=== PATIENT | male | born 1960 | race Caucasian/White ===

== ENCOUNTER 2018-11-23 06:55 | Day surgery (SDC) | payer OTHER, SELFPAY ==
[2018-11-23 07:13] VITALS: BP 133/92; PULSE 100; RESP 18; TEMP 36.7; O2SAT 97; BMI 27.5
--- NOTE | 2018-11-23 08:00 | COLBX_PTH ---
PATIENT: KYLE VAZQUEZ LOC: EN U#:[id number] AGE/SX: 57/M ROOM: RE11/23/[address]: Dr. Taiwo Casas MD : 1960 BED: DIS: 11/23/2018 SPEC #: [id number] RECD: 11/23/18 10:56 STATUS: JHONNY JUSTIN #: [id number] GEOVANNA: 11/23/18 08:[address]: Taiwo Casas DEPT: SURGICAL PATHOLOGY RECD BY: Lynne Amezcua ENTERED: 11/23/18 11:51 SP TYPE: COLON BX OTHR DR: Dr. Doug Castaneda MD Tissues: Descending colon Procedures: Surgery Specimen Level IV HEADER OPERATION: Colonoscopy - open access (MAC) PRE-OP DIAGNOSIS: Screening TISSUE SUBMITTED: Biopsy of descending colon polyp MICROSCOPIC DIAGNOSIS Descending colon polyp, biopsy: Tubular adenoma. SJ:colt 11/24/18 MICROSCOPIC DESCRIPTION Slides are reviewed. GROSS DESCRIPTION Received in fixative is one container labeled with the patient's name and designated descending colon polyp. The specimen consists of multiple irregular fragments of light schwarz soft tissue that in aggregate measure 0.5 x 0.3 x 0.1 cm. The specimen is totally submitted in one cassette. / SJ:colt 11/23/18 TC:1 CPT: 74510
--- NOTE | 2018-11-23 08:29 | H&P.OPEN ---
History of Present Illness Date of Admission: 11/23/18 The patient is a 57 year old M who presents for screening colonoscopy. Past Medical/Surgical History - Planned Operation Planned Operative Procedure/s: COLONOSCOPY Date of Operative Procedure: 11/23/18 Permit Signed: Yes S.O.S: No Is This Patient Having a Total Joint: No - Previous Hospitalizations/Surgeries HX Hospitalizations: No HX of Surgeries: CYST REMOVED INSIDE SPINAL CORD Any Problems With Anesthesia: No You/Your Family Experience Fever (Hyperthermia) With Anes: No Cholinesterase deficiency: No - Cardiovascular Hx Chest Pain within Last 2 months: No Hx of Irregular Heartbeat and/or Afib: No Hx Heart Attack: No Hx Congestive Heart Failure: No Hx Rheumatic Fever: No Hx Hypertension: No Hx Internal Defibrillator: No Hx Pacemaker: No Hx Cardiac Catheterization: No Hx Cardiac Surgery/Stents/Etc.: No Hx Stress Test: No HX Edema: No Hx Pain in Legs when Walking/Leg Cramps: No - Respiratory Chronic Cough: No HX of Shortness of Breath: No Hoarseness: No Hx Chronic Obstructive Pulmonary Disease (COPD): No Hx Asthma: No Hx Emphysema: No Hx Sleep Apnea: No Hx Oxygen Use at Home: No Hx Respiratory Tract Infection/Cold (presently): No Do You Snore Loudly (louder than talking or can be heard): Yes Do You Often Feel Tired/ Fatigued/ Sleepy Dring Daytime?: No Has Anyone Observed You Stop Breathing During Sleep?: No Result (for STOP score): Negative Hx Smoking: No Smoking Status: Never smoker - Gastrointestinal Hx Gastroesophageal Reflux: No Hx Gastrointestinal Disorders: No Hx Gastrointestinal Bleed: No Hx Ulcer: No Hx Hiatal Hernia: No Difficulty Chewing/Swallowing: No Recent Onset of Swallowing Problems: No Special diet followed at home: No Hx Unplanned Weight Loss of 20#: No HX Unplanned Weight Gain of 20#: No - Neurological Hx Seizures: No HX Syncope/Blackout Spells/Unconsciousness: No Hx CVA/Stroke: No Hx Transient Ischemic Attacks (TIA): No Hx Multiple Sclerosis: No Hx Parkinson's Disease: No Hx Head/Neck Injury: No Hx Headaches: No Hx Back Injury/Pain: Yes Recent Onset of Speech Difficulty: No Restless Legs: Yes Does patient have nerve stimulator: No - Blood Disorder Hx Leukemia: No Bleeding Tendencies: No Hx Deep Vein Thrombosis: No Hx High Cholesterol: No Blood Transmitted Disease: No Hx Hepatitis: No Hx Cirrhosis: No Hx Anemia: No Hx Blood Disorders: No - Genitourinary Hx Renal Disease: No - Musculoskeletal Hx Arthritis: No Hx Rheumatoid Arthritis: No Hx Gout: No Recent Onset of an Orthopedic Problem: Yes - R KNEE - Endocrine Hx Diabetes: No Thyroid Disease: No Hx Steroid Therapy: No - Psycho/Social Hx Substance Use: No Hx Alcohol Use: No Hx Anxiety: No Hx Depression: No Mental Illness: No Hx Dementia: No - Miscellaneous Hx Cancer: No Recent Exposure to Contagious Disease: No Active MRSA: No Hx of C-Diff: No Any Loose Teeth: No Allergies amoxicillin Allergy (Verified 11/18/18 12:10) Rash - Discharge Is Pt Admitted From a [facility], or a Residential: No Who Could Help: After D/C, Where Do you Plan to Go: Return Home - Physical Exam General: Alert, Oriented x3 HEENT: Atraumatic, PERRLA, EOMI, Normocephalic Oral: Moist Mucosa Neck: Supple, No JVD Lungs: Clear to auscultation Cardiovascular: Regular rate, Regular Rhythm, No murmurs Abdomen: Bowel Sounds Present, Soft, Non Tender, Non-Distended Extremities: No clubbing, No cyanosis, No edema Skin: No rashes, No breakdown Musculoskeletal: No Tenderness to Palpation of Joints or Extremities Lymphatic: No Cervical, Supraclavicular, or Inguinal Adenopathy Neurological: Cranial nerves II-XII grossly intact Psych/Mental Status: Normal Affect, Appropriate Vital Signs Temp Pulse Resp BP Pulse Ox 98.0 F 100 18 133/92 H 97 11/23/18 07:13 11/23/18 07:13 11/23/18 07:13 11/23/18 07:13 11/23/18 07:13 Oxygen Delivery Method Room Air Weight: 181 lb 3.52 oz Body Mass Index (BMI) 27.5 Assessment/Plan Plan is to perform a colonoscopy on the patient. Possible polypectomy Surgery Risks - Colonoscopy Risks Include but are not Limited To: Risks include but are not limited to: Bleeding, perforation requiring further surgery, inability to complete colonoscopy requiring barium enema.
[2018-11-23 08:55] VITALS: BP 133/92; BP 138/94; PULSE 94; RESP 16; TEMP 36.8; O2SAT 97
--- NOTE | 2018-11-23 08:57 | OP.ENDO_ITS ---
11/23/2018 Doug Castaneda Re : Colonoscopy procedure for Chad Castaneda This procedure was performed on Friday, November 23, 2018. My impressions and recommendations are as follows: Impressions : - One 4 mm polyp in the descending colon, removed with a jumbo cold forceps. Resected and retrieved. - The entire examined colon is normal. Recommendations : - Discharge patient to home. - Resume previous diet. - Continue present medications. - Await pathology results. - Repeat colonoscopy in 3 years for surveillance. - Return to my office in 1 week. My findings are described in the full procedure note, which is enclosed. If I can be of further assistance, please feel free to contact me at Doctor phone number(s): , Fax: [phone], Work: . Sincerely, MD Taiwo Acosta MD 11/23/2018 8:56:49 AM This report has been signed electronically.
[2018-11-23 09:00] VITALS: BP 128/88; BP 133/92; PULSE 92; RESP 16; O2SAT 96
[2018-11-23 09:05] VITALS: BP 124/84; BP 133/92; PULSE 93; RESP 16; O2SAT 96
[2018-11-23 09:10] VITALS: BP 123/87; BP 133/92; PULSE 90; RESP 18; TEMP 36.5; O2SAT 96
[2018-11-23 09:15] VITALS: BP 133/92
== END 2018-11-23 09:50 | disposition home or self-care (01) ==
LOC: EN 06:57 → AC 06:58
PROVIDERS: Family Provider Family Medicine; PCP Family Medicine; Referring Provider Family Medicine; Visit Provider Surgery
PROC: 0DJD8ZZ Inspection of Lower Intestinal Tract, Via Natural or Artificial Opening Endoscopic (ICD-10-PCS; CPT 45378; principal; 2018-11-23 07:55)
DX: Z12.11 Encounter for screening for malignant neoplasm of colon (principal); D12.4 Benign neoplasm of descending colon; G25.81 Restless legs syndrome
CPT/HCPCS: 45380; 88305; J7120; J1610

== ENCOUNTER 2022-03-11 09:17 | Emergency (ER) | payer OTHER, SELFPAY ==
[2022-03-11 09:18] VITALS: BP 137/86; PULSE 91; RESP 16; TEMP 36.3; O2SAT 98; BMI 27.6
--- NOTE | 2022-03-11 09:42 | EDS_ITS ---
HPI History of Present Illness Chief Complaint: Back Informant: patient Onset/Context/Timing Onset: Days (3) Context: Gradual Onset Chronic pain exacerbated by: back exercises Timing: Continuous Quality: Aching Location: Buttock and Left Leg Current Severity: Moderate Maximum Severity: Moderate Worsened by: improves with Ambulation (and standing for long periods) Relieved by: Sitting Associated Symptoms Associated Symptoms: Tingling and Radiation to Right Leg; Negative for Fever, Abdominal Pain, Dysuria, Unable to Ambulate, Unable to Transfer, Urinary Retention, Urinary Incontinence, Constipation or Fecal Incontinence Narrative Narrative: Patient has a chronic history of back issues with sciatica, he had an MRI 2 years ago that showed an intervertebral disc issue, he saw Dr. Maurer for it. He did an injection, the patient did not like having that injection and he has not been back there since then, however he went to a chiropractor a couple days ago who did not adjust his back but had him do some strengthening exercises, these included lateral planks, [id number] motions, and other muscle strengthening with regards to the low back and pelvic girdle. He states since then gradually, he has had tingling down his legs mostly the right 1. No bowel or bladder dysfunction. It is more uncomfortable if he walks 20 or 30 feet, better if he sits and rests. He states the sensation is like he is losing blood flow to both of his legs. He denies any abdominal pain, major injuries or falls recently. Prior similar symptoms: Yes and With Prior Back Pain (but worse now) [facility] Medical History (Updated 03/11/22 @ 09:[address] Gideon Willett MD) Radiculopathy due to disorder of intervertebral disc of lumbar spine Synovial cyst of lumbar spine Home Medications garlic 300 mg capsule 300 mg PO DAILY 07/10/20 [History Last Taken Unknown] ibuprofen 200 mg capsule 200 mg PO Q6H PRN 07/10/20 [History Last Taken Unknown] magnesium oxide 500 mg capsule 500 mg PO DAILY 07/10/20 [History Last Taken Unknown] multivitamin with iron (Daily Multiple Vitamins with Iron tablet) 1 tab PO DAILY 07/10/20 [History Last Taken Unknown] prednisone 10 mg tablet 10 mg PO UD #30 tabs 03/11/22 [Rx Last Taken Unknown] Allergy/AdvReac Type Severity Reaction Status Date / Time amoxicillin Allergy Rash Verified 03/11/22 09:18 Family History (Updated 07/10/20 @ 10:02 by Shannen Yu) Mother Arthritis Surgical History History of tonsillectomy [place] teeth removed Social History household members: spouse and children housing: house Smoking Status: Never smoker alcohol intake: current alcohol intake frequency: holidays/special occasions only what type of physical activity do you participate in: walking frequency: daily do you feel safe at home: Yes ROS ROS ED Constitutional Constitutional ED: Denies chills or fever(s) Gastrointestinal Gastrointestinal: Denies abdominal pain, constipation, fecal incontinence, nausea or vomiting Genitourinary Genitourinary ED: Reports other Details: no urinary retention ; Denies abdominal discomfort or urinary incontinence Musculoskeletal Musculoskeletal: Reports as per HPI and back pain; Denies neck pain Integumentary Denies rash or wounds Neurologic Neurologic: Reports paresthesias; Denies headache(s) or weakness EXAM Physical Exam Const Vital Signs: 03/11/22 09:18 Temperature 97.3 F L Temperature Source Temporal Pulse Rate 91 Respiratory Rate 16 Blood Pressure 137/86 H Blood Pressure Mean 103 Pulse Ox 98 Oxygen Delivery Method Room Air Positive well nourished and well developed General Appearance ED: well developed and NAD HEENT Negative for trauma or tenderness Eyes PERRL and EOMs intact bilaterally Neck full ROM and supple GI normal to inspection, nondistended, normoactive bowel sounds, soft to palpation and non-tender Back/Spine normal to inspection General Back: Negative for CVA tenderness Lumbar Spine / Lower Back: ROM limited and straight leg raise positive right other (Fully extended while sitting, exacerbates tingling); Negative for lumbar spinal tenderness Extremity normal to inspection, full ROM and no pedal edema Neuro oriented x3 Neuro Narrative: Subjective decrease sensation in the right lower extremity stocking glove distribution. Brisk cap refill throughout all toes. Sensation is grossly intact. Sensorium / Orientation: alert Motor Exam: strength 5/5 throughout and clonus absent Deep Tendon Reflexes: Rt Patellar (L4): 1+, Lt Patellar (L4): 1+, Rt Ankle (S1): 2+ and Lt Ankle (S1): 2+ Deep Tendon Reflexes Back: Rt Patellar (L4): 1+, Lt Patellar (L4): 1+, Rt Ankle (S1): 2+ and Lt Ankle (S1): 2+ Plantar Reflex: Downgoing: bilateral Psych mental status grossly normal and thought process normal Skin no rashes or lesions noted and no wounds MDM MDM MDM Narrative Medical decision making narrative: This patient basically has a history of chronic radiculopathy, and it seems exacerbated by the therapy session that he had 2-3 days ago. He does not have any bowel or bladder dysfunction. He did not have any bony manipulation or spinal tenderness now, so I do not think he needs emergent imaging/radiography. My suggestion is a course of prednisone, which is what he was thinking might help. If this does not help and the symptoms do not improve I suggest following up with his validation specialist. He is in agreement with this plan. Discharge Plan Triage Chief Complaint: Back ED Provider: Gideon Willett Dx/Rx/DC Orders Clinical Impression: Radiculopathy due to disorder of intervertebral disc of lumbar spine Instructions: Understanding Lumbar Radiculopathy Prescriptions: New prednisone 10 mg tablet 10 mg PO UD Qty: 30 0RF Rx Instructions: Take 4 tablets daily for 3 days, then 3 daily for 3 days, then 2 daily for 3 days, then 1 a day for 3 days No Action ibuprofen 200 mg capsule 200 mg PO Q6H PRN multivitamin with iron [Daily Multiple Vitamins/Iron] Tablet 1 tab PO DAILY garlic 300 mg capsule 300 mg capsule 300 mg PO DAILY magnesium oxide 500 mg capsule 500 mg PO DAILY Primary Care Provider: Doug Castaneda Referrals: Tristin Maurer DO [Med Staff - Active Staff] - 1 Week if not improving Doug Castaneda MD [Primary Care Provider] - Activity Restrictions/Additional Instructions: Start prescription tomorrow 02/2010 Disposition Disposition: Home, Self Care
[2022-03-11] MEDS: predniSONE 20 MG Tablet 60 MG PO (09:48)
== END 2022-03-11 09:51 | disposition home or self-care (01) ==
LOC: ED 09:47
PROVIDERS: Emergency Provider Emergency Medicine; PCP Family Medicine; Visit Provider Emergency Medicine
DX: M51.16 Intervertebral disc disorders with radiculopathy, lumbar region (principal)
CPT/HCPCS: 99283

== ENCOUNTER → 2022-04-02 | Outpatient (CLI) | payer OTHER, SELFPAY ==
--- NOTE | 2022-04-02 16:53 | US_ITS ---
EXAM: US RETROPERITONEAL LIMITED, AORTA CLINICAL INDICATION: pulsatile abdominal mass with 4 weeks claudication and Fhx of AAA TECHNIQUE: Lafleur scale and color Doppler imaging was obtained of the abdominal aorta. This report was created using [employer] report generation technology. COMPARISON: None. FINDINGS: AORTA: The proximal aorta measures 2.5 cm, the mid aorta measures 1.6 cm and the distal aorta measures 1.7 cm. COMMON ILIAC ARTERIES: The right iliac artery measures 1.5 x 1.2 cm in the left iliac artery measures 1.3 x 1.2 cm. US/Aorta IMPRESSION: Normal caliber aorta. There is no evidence of aneurysm. Electronically Signed: Jayson Sousa MD at 18:31 EDT ,
[2022-04-02 17:38] LABS: Hemoglobin 14.2 g/dL (13.0-16.5); Mean Corp Hgb Conc 32.3 g/dL (32-36); Mean Corpuscular Hgb 29.6 pg (27.0-32.0); Mean Corpuscular Volume 91.9 fL (80-94); Mean Platelet Vol. 9.6 fl (6.2-12.0); Platelet Count 233 K/mm3 (150-450); RBC Distribution Width CV 13.2 % (11.6-14.6); Red Blood Count 4.79 M/mm3 (4.6-6.2); White Blood Count 6.4 K/mm3 (4.4-11.0)
[2022-04-02 18:23] LABS: AST(SGOT) 12 U/L (15-37); Alanine Aminotransfer ALT/SGPT 26 U/L (16-61); Albumin, Serum 3.9 g/dL (3.2-5.0); Alkaline Phosphatase 89 U/L (45-117); Anion Gap 5 (5-15); BUN 19 mg/dL (7-18); BUN/Creat Ratio 18.4 RATIO (10-20); CPK Total, Creatine Kinase 71 U/L (39-308); Calcium,Total 9.3 mg/dL (8.5-10.1); Chloride 105 mmol/L (98-107); Cholesterol 157 mg/dL (200); Creatinine, Serum 1.03 mg/dL (0.70-1.30); EST Glomerular Filtration Rate 78 mL/min (>60); Est Glom Filt Rate - Afr Amer 94 mL/min (>60); Ferritin 308 ng/mL (26-388); Glucose 93 mg/dL (74-106); High Density Lipoprotein 41 mg/dL; Potassium 3.9 mmol/L (3.5-5.1); Protein, Total 7.9 g/dL (6.4-8.2); Sodium Level 139 mmol/L (136-145); Triglycerides 84 mg/dL; Very Low Density Lipoprotein 17 mg/dL (5-40)
[2022-04-12 15:53] LABS: HLA B27 Negative (.)
== END | disposition home or self-care (01) ==
PROVIDERS: PCP Family Medicine; Visit Provider Family Medicine
DX: I70.90 Unspecified atherosclerosis (principal); I73.9 Peripheral vascular disease, unspecified; R68.3 Clubbing of fingers; M47.816 Spondylosis without myelopathy or radiculopathy, lumbar region
CPT/HCPCS: 36415; 76775; 80053; 80061; 81374; 82550; 82728; 85027

== ENCOUNTER → 2022-04-23 | Outpatient (CLI) | payer OTHER, SELFPAY ==
--- NOTE | 2022-04-23 09:07 | ART_ITS ---
Reason For Study: Claudication Procedure A bilateral lower extremity continuous wave Doppler with analog waveform analysis,segmental pressures,and ankle brachial indexes with exercise. Left Segmental Pressures Left brachial= 130mmHg. Left posterior tibial artery = 176mmHg. Left dorsalis pedis artery = 157mmHg. Left digit = 99 mmHg. The left dorsalis pedis waveforms are triphasic. The left posterior tibial artery waveforms are triphasic. Right Segmental Pressures Right brachial= 130mmHg. Right posterior tibial artery = 183mmHg. Right dorsalis pedis artery = 172mmHg. Right digit = 109 mmHg. The right dorsalis pedis waveforms are triphasic. The right posterior tibial artery waveforms are triphasic. Indices The right ankle brachial index by the dorsalis pedis is 1.32. The right ankle brachial index by the posterior tibial artery is 1.41. The right digital-brachial index is 0.84. The left ankle brachial index by the dorsalis pedis is 1.21. The left ankle brachial index by the posterior tibial artery is 1.35. The left digital-brachial index is 0.76. VL/Lower Ext Art Exam w/ Exercise Interpretation Summary Triphasic Doppler waveforms are noted at ankle level bilaterally. Pulse-volume recordings appear diminished at digital level bilaterally, but satisfactory at all other levels b ilaterally. The resting right ankle-brachial index is supra-normal. The resting left ankle-brac hial index is normal. Digital-brachial indices are normal bilaterally. Following a period of exercise , ankle pressures and ankle-brachial indices are maintained or augmented bilaterally, which is a norm al physiological response. There is evidence of arterial calcification at ankle level on the right. There is no evidence of significant arterial occlusive disease in the lower extremities bilaterally. Ordering Physician: Karsten Szymanski Referring Physician: KARSTEN SZYMANSKI MD Performed By: Demetria Thurman RVT
== END | disposition home or self-care (01) ==
PROVIDERS: PCP Family Medicine; Referring Provider Family Medicine; Visit Provider Family Medicine
DX: I70.90 Unspecified atherosclerosis (principal); I73.9 Peripheral vascular disease, unspecified; M79.604 Pain in right leg; M79.605 Pain in left leg
CPT/HCPCS: 93924

== ENCOUNTER 2022-05-20 12:14 | Outpatient (CLI) | payer OTHER, SELFPAY ==
--- NOTE | 2022-05-20 14:36 | NEURO ---
NCS and/or EMG Patient Report Ordering Doctor: Tristin Maurer DATE OF SERVICE: 05/20/22 Chad presents electrodiagnostic testing of the lower limbs. He reports difficulty walking due to leg pain. Electrodiagnostic findings: Peroneal motor nerve demonstrates normal distal latency, amplitude and conduction velocity bilaterally. Normal tibial motor response bilaterally. Sensory responses are within normal limits. Borderline prolonged H reflex bilaterally. Peroneal and tibial F waves are normal. On needle EMG, all muscles tested in the lower limbs showed no evidence of denervation with normal motor unit action potentials. Electrodiagnostic impression: This is a normal electrodiagnostic study of the lower limbs. There is no electrodiagnostic evidence for peripheral polyneuropathy or lumbosacral radiculopathy.
== END 2022-05-20 23:59 | disposition home or self-care (01) ==
LOC: PSN 12:14
PROVIDERS: PCP Family Medicine; Visit Provider Orthopaedic Surgery
DX: M54.50 Low back pain, unspecified (principal)
CPT/HCPCS: 95886; 95911

== ENCOUNTER → 2022-05-29 | Outpatient (CLI) | payer OTHER, SELFPAY ==
--- NOTE | 2022-05-29 06:36 | MRI_ITS ---
ACR Level 3 findings have been noted. An addendum which confirms receipt of the report will follow. STUDY: MRI LUMBAR SPINE WITHOUT CONTRAST REASON FOR EXAM: Male, 61 years old. lower back/leg pain TECHNIQUE: Standardized fat and water weighted pulse sequences were obtained in the sagittal and axial planes. COMPARISON: X-ray the lumbar spine. FINDINGS: Bulky retroperitoneal lymphadenopathy is present, which should be further evaluated or correlated with the patient''s known medical history and diagnosis. Normal lumbar lordosis. There is no substantial scoliosis. Normal conus medullaris that terminates at the T12 level. No marrow edema or acute fracture or compression deformity is present. There is an old displaced fracture of the L5 spinous process with nonunion, see image 08/15 series 5. Benign fatty hemangioma of the L3 vertebral body noted. T12-L1: Small Schmorl''s nodes on both sides of the disc space. Normal disc space height and morphology. Normal bilateral facet joints. Normal central canal and bilateral lateral recesses. Normal bilateral intervertebral neural foramina. L1-2: Diffuse disc desiccation with mild disc space narrowing but no significant bulging or herniation of the disc posteriorly. Small Schmorl''s node and mild anterior endplate spurring and mild MODIC endplate degenerative signal. Normal bilateral facet joints. Normal central canal and bilateral lateral recesses. Normal bilateral intervertebral neural foramina. L2-3: Diffuse disc desiccation and mild anterior endplate spurring. Small Schmorl''s node with surrounding MODIC reactive endplate signal. Normal disc height and morphology. Normal bilateral facet joints. Normal central canal and bilateral lateral recesses. Normal bilateral intervertebral neural foramina. L3-4: Diffuse disc desiccation with minimal disc space narrowing and annular bulging. Small posterior annular tear of the disc. Mild anterior endplate spurring. Mild to moderate bilateral facet joint hypertrophy. Mild fluid distention of the facet joints. Mild right foraminal stenosis. Normal left neural foramen. Normal central canal and bilateral lateral recesses. L4-5: Normal endplates. Diffuse disc desiccation with mild disc space narrowing and diffuse disc bulging. Small to moderate size anterior endplate osteophytes. Bilateral lateral recess stenosis with nerve root compression and mild to moderate central canal stenosis is present primarily due to significant facet joint hypertrophy. Moderate fluid distention of the bilateral facet joints. Mild to moderate bilateral foraminal stenosis with posterior nerve root impingement. L5-S1: Diffuse disc desiccation with moderate disc space narrowing and a diffuse disc bulge. Moderate size Schmorl''s node. Small anterior endplate spurs. Moderate bilateral facet joint hypertrophy contributes to mild central canal stenosis. Moderate bilateral foraminal stenosis, right greater than left with nerve root compression. Normal visualized sacral ala. Normal visualized paraspinous soft tissue structures. MRI/Spine Lumbar (Routine) IMPRESSION: 1. Bulky retroperitoneal lymphadenopathy is present, which should be further evaluated or correlated with the patient''s known medical history and diagnosis. 2. Multilevel degenerative changes, as described above. 3. Mild to moderate central canal stenosis at L4-L5 4. Multilevel foraminal stenosis with nerve root impingement/compression Electronically Signed: Bowen Rubin MD at 13:26 EST ,
== END | disposition home or self-care (01) ==
PROVIDERS: PCP Family Medicine; Referring Provider Orthopaedic Surgery; Visit Provider Orthopaedic Surgery
DX: M48.061 Spinal stenosis, lumbar region without neurogenic claudication (principal); D18.09 Hemangioma of other sites; R59.0 Localized enlarged lymph nodes; M51.36 Other intervertebral disc degeneration, lumbar region; M25.48 Effusion, other site
CPT/HCPCS: 72148

== ENCOUNTER 2022-06-05 16:09 | Emergency (ER) | payer OTHER, SELFPAY ==
[2022-06-05 16:11] VITALS: BP 177/102; PULSE 86; RESP 18; TEMP 36.2; O2SAT 98; BMI 28.8
--- NOTE | 2022-06-05 18:25 | EDS_ITS ---
HPI History of Present Illness Chief Complaint: Edema Narrative Narrative: 61-year-old male presenting for evaluation. He was sent by Dr. James to be started on Lovenox. Apparently the patient started having back pain a while ago. He was seen in the ER and followed up with Dr. Maurer. He had an MRI performed which indicated that the patient had some retroperitoneal lymphadenopathy. He was referred to oncology for this. Oncology ordered a CTA of the chest abdomen pelvis yesterday. The results were received today. Apparently the patient has some blood clot in the inferior vena cava. Patient himself states that he is actually back up and walking and feeling a little bit better. No loss of bladder or bowel control or saddle anesthesia. He does have some tingling in the bilateral legs. He denies any lower extremity edema. 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 Home Medications garlic 300 mg capsule 300 mg PO DAILY 07/10/20 [History Last Taken Unknown] ibuprofen 200 mg capsule 200 mg PO Q6H PRN 07/10/20 [History Last Taken Unknown] magnesium oxide 500 mg capsule 500 mg PO DAILY 07/10/20 [History Last Taken Unknown] multivitamin with iron (Daily Multiple Vitamins with Iron tablet) 1 tab PO DAILY 07/10/20 [History Last Taken Unknown] prednisone 10 mg tablet 10 mg PO UD #30 tabs 03/11/22 [Rx Last Taken Unknown] saw palm 160 mg-vit E 100 unit-selen 100 fhj-egcc-ldomve-pygeum tablet ([facility]) 1 tab PO DAILY 06/02/22 [History Last Taken Unknown] enoxaparin 150 mg/mL subcutaneous syringe (Lovenox) 129 mg (0.86 mL) subcut DAILY 4 weeks #24.08 mL 06/05/22 [Rx Last Taken Unknown] Allergy/AdvReac Type Severity Reaction Status Date / Time amoxicillin Allergy Rash Verified 06/05/22 16:13 Family History Mother Arthritis Father Heart disease Surgical History History of tonsillectomy [place] teeth removed Social History household members: spouse and children housing: house Smoking Status: Never smoker alcohol intake: current alcohol intake frequency: holidays/special occasions only what type of physical activity do you participate in: walking frequency: daily do you feel safe at home: Yes ROS ROS ED Constitutional Constitutional ED: Denies chills, fever(s) or sweats Eyes Eyes: Denies blurry vision or change in vision ENT ENT ED: Denies ear pain or sore throat Cardiovascular Cardiovascular: Denies chest pain, palpitations or racing heartbeat Respiratory/Chest Respiratory/Chest: Denies cough, dyspnea or sputum Gastrointestinal Gastrointestinal: Denies abdominal pain, constipation, diarrhea, nausea or vomiting Genitourinary Genitourinary ED: Denies dysuria, hematuria or urinary frequency Musculoskeletal Musculoskeletal: Reports back pain; Denies arthralgias, myalgias or neck pain Integumentary Denies abscess, Abrasions or rash Neurologic Neurologic: Reports paresthesias; Denies headache(s) or weakness Psychiatric Psychiatric: Denies anxiety, depression, suicidal ideation or suicidal thoughts Endocrine Endocrinology: Denies polydipsia or polyuria EXAM Physical Exam Const Vital Signs: 06/05/22 16:11 06/05/22 17:30 Temperature 97.2 F L Temperature Source Temporal Pulse Rate 86 Respiratory Rate 18 Respiratory Effort Normal Respiratory Pattern Normal Blood Pressure 177/102 H Blood Pressure Mean 127 Pulse Ox 98 Oxygen Delivery Method Room Air Positive well nourished HEENT Reports moist mucous membranes and dry mucous membranes Mouth ED: Yes dry mucous membranes Mouth: dry mucous membranes Eyes PERRL and EOMs intact bilaterally Resp normal respiratory effort Auscultation: Negative for rales, rhonchi or wheezes Cardio regular rate and regular rhythm GI normal to inspection, nondistended, normoactive bowel sounds Neuro oriented x3 and CN's II-XII intact bilaterally Sensorium / Orientation: alert Motor Exam: strength 5/5 throughout Psych mental status grossly normal Skin no rashes or lesions noted MDM MDM MDM Narrative Medical decision making narrative: Patient presenting from oncology to be 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 Oncology was specifically wanted to start Lovenox instead of oral anticoagulation because they want to perform biopsies of the lymph nodes at some point and it would be easier to do if not on oral medication. The patient was amenable to starting Lovenox shots. Risks and benefits were described to him. He acknowledges understanding and has no further questions. I spoke with Dr. Nunes from vascular surgery. He states that he can see him in follow-up and talk about the risk benefits of thrombectomy. He feels that Lovenox would be appropriate. Patient was given the first dose here and is given a prescription for home. Return precautions were discussed. Impression: 1. Thrombosis IVC 2. Back pain Lab Data Attestation: I reviewed the patient's lab results. Discharge Plan Triage Chief Complaint: Edema ED Provider: Kole Sargent Dx/Rx/DC Orders Instructions: ED Deep Vein Thrombosis (DVT) Prescriptions: New enoxaparin [Lovenox] 150 mg/mL syringe 129 mg subcut DAILY 28 Days Qty: 24.08 0RF No Action ibuprofen 200 mg capsule 200 mg PO Q6H PRN multivitamin with iron [Daily Multiple Vitamins/Iron] Tablet 1 tab PO DAILY garlic 300 mg capsule 300 mg capsule 300 mg PO DAILY magnesium oxide 500 mg capsule 500 mg PO DAILY Prostate Health 160-100-100 mg-unit-mcg tablet 1 tab PO DAILY prednisone 10 mg tablet 10 mg PO UD Qty: 30 0RF Rx Instructions: Take 4 tablets daily for 3 days, then 3 daily for 3 days, then 2 daily for 3 days, then 1 a day for 3 days Primary Care Provider: Karsten Szymanski Referrals: Karsten Szymanski MD [Primary Care Provider] - Disposition Disposition: Home, Self Care
[2022-06-05 18:41] VITALS: BP 130/74; PULSE 72; RESP 15; O2SAT 98
[2022-06-05] MEDS: Enoxaparin 150 MG/ML Syringe 129 MG SC (19:09)
[2022-06-05 19:16] VITALS: O2SAT 98
== END 2022-06-05 19:16 | disposition home or self-care (01) ==
PROVIDERS: Emergency Provider Student in an Organized Health Care Education/Training Program; PCP Family Medicine; Visit Provider Student in an Organized Health Care Education/Training Program
DX: I82.220 Acute embolism and thrombosis of inferior vena cava (principal); M54.9 Dorsalgia, unspecified; R59.0 Localized enlarged lymph nodes; Z79.899 Other long term (current) drug therapy
CPT/HCPCS: 99282

== ENCOUNTER → 2022-06-05 | Outpatient (CLI) | payer SELFPAY ==
--- NOTE | 2022-06-05 14:14 | CT_ITS ---
STUDY: CT CHEST, ABDOMEN T PELVIS WITH CONTRAST REASON FOR EXAM: Male, 61 years old. LYMPHADENOPATHY RADIATION DOSAGE (If Supplied By Facility): CTDIvol = ( 16.44 ) mGy, DLP = ( 1609.48 ) mGycm TECHNIQUE: Transaxial imaging was performed following intravenous administration of IV. Individualized dose optimization techniques were used for this CT. COMPARISON: No relevant priors. FINDINGS: CHEST Bilateral axillary adenopathy more prominent in the left axilla. Heterogeneous appearance of both lobes of the thyroid gland worse on the right side with enlargement. The lungs are normal. There is no demonstrated pleural abnormality. There are calcifications of the coronary arteries. There are multiple small lymph nodes within the mediastinum, which are normal in size and morphology most compatible with reactive lymph hyperplasia. Normal hilar regions. Normal unenhanced pulmonary arteries. Normal aorta arch and descending thoracic aorta. There are multi-level degenerative changes of the thoracic spine. Fatty infiltration of the liver. There is a 1.5 cm x 1.3 cm cyst in the anterior right lobe of the liver. Small hiatal hernia. Retroperitoneal lymphadenopathy. ABDOMEN There is decreased attenuation of the liver consistent with steatosis. 1.5 cm x 1.3 cm cyst in the anterior aspect of the right lobe of the liver. Normal gallbladder and extrahepatic biliary system. Normal spleen. Normal pancreas. Normal bilateral adrenal glands. Normal right kidney. Normal left kidney. There is a small hiatal hernia. Normal small intestine. There are scattered colonic diverticula consistent with diverticulosis. The appendix is visualized and appears normal. Normal abdominal aorta. There is venous distention of the inferior vena cava (IVC). There is evidence of a thrombus within the inferior vena cava. This extends inferiorly into the common iliac veins bilaterally. There is retroperitoneal lymphadenopathy with enlarged nodes greater than 10-15mm in the short axis. Nonspecific increased markings in the fat of the root of the mesentery. Small lymph nodes are also seen within the root of the mesenteric fat. Small bilateral inguinal hernias containing fat more prominent on the right side. There are mild degenerative changes of the visualized lumbar spine. PELVIS Mild degree of diffuse bladder wall thickening. Prostatic enlargement with indentation at the bladder base. There is no pelvic fluid. Small pelvic adenopathy. Small benign-appearing lymph nodes are seen in both groins. Normal visualized pelvic arteries. CT/CT Chest, Abd, Pel w/Contrast IMPRESSION: Axillary lymphadenopathy more prominent on the left side. Retroperitoneal lymphadenopathy as well as lymph nodes seen in the root of the mesentery as well as in the pelvis. Distended inferior vena cava with thrombus in it as described. Small hepatic cyst. Electronically Signed: Raciel Garza MD at 14:54 EST ,
== END | disposition home or self-care (01) ==
LOC: CT 14:13
PROVIDERS: PCP Family Medicine; Referring Provider Internal Medicine Hematology & Oncology; Visit Provider Internal Medicine Hematology & Oncology
DX: R59.0 Localized enlarged lymph nodes (principal); I82.220 Acute embolism and thrombosis of inferior vena cava; I25.10 Atherosclerotic heart disease of native coronary artery without angina pectoris; K40.20 Bilateral inguinal hernia, without obstruction or gangrene, not specified as recurrent; R93.41 Abnormal radiologic findings on diagnostic imaging of renal pelvis, ureter, or bladder; K44.9 Diaphragmatic hernia without obstruction or gangrene; E04.9 Nontoxic goiter, unspecified; K76.89 Other specified diseases of liver; K57.30 Diverticulosis of large intestine without perforation or abscess without bleeding
CPT/HCPCS: 71260; 74177; Q9967; A4216

== ENCOUNTER 2022-06-06 09:56 | Emergency (ER) | payer OTHER, SELFPAY ==
[2022-06-06 09:56] VITALS: BP 149/97; PULSE 106; RESP 18; TEMP 36.4; O2SAT 98; BMI 28.8
--- NOTE | 2022-06-06 11:22 | CT_ITS ---
EXAM: CT HEAD WITHOUT INTRAVENOUS CONTRAST CLINICAL INDICATION: dizziness TECHNIQUE: Multiple axial images were obtained of the head without intravenous contrast. This CT exam was performed using one or more of the following dose reduction techniques: automated exposure control, adjustment of the mA and/or kV according to patient size, and/or use of iterative reconstruction technique. This report was created using [employer] report [employer] technology. COMPARISON: None. FINDINGS: BRAIN AND EXTRA-AXIAL SPACES: Normal. No intra- or extra-axial hemorrhage. No evidence of acute infarct. No intracranial mass or mass effect. There is preservation of the ricardo/white matter interface. Posterior fossa structures are unremarkable. Ventricles are appropriate for age. No hydrocephalus. Basal cisterns are patent. BONES/JOINTS: Normal. No discrete lytic or blastic abnormalities. SINUSES: Minimal mucosal thickening within the paranasal sinuses. MASTOID AIR CELLS: Normal. Clear. ORBITS: Visualized globes, extraocular muscles, optic nerves and retrobulbar fat appear unremarkable. CT/Brain/Head without Contrast IMPRESSION: No acute intracranial abnormality. Electronically Signed: Tj Yusuf MD at 12:11 EST ,
--- NOTE | 2022-06-06 11:22 | EKG12_ITS ---
Test Reason : DIZZINESS Blood Pressure : / mmHG Vent. Rate : 094 BPM Atrial Rate : 094 BPM P-R Int : 168 ms QRS Dur : 074 ms QT Int : 346 ms P-R-T Axes : 036 021 029 degrees QTc Int : 432 ms Normal sinus rhythm Normal ECG Confirmed by SANA WHITE, RIYA ([id number]), graphic editor SERVANDO SHIN ([id number]) on 06/08/2022 12:45:10 PM Referred By: BROOKLYNN Confirmed By:RIYA HOOD MD
--- NOTE | 2022-06-06 11:22 | RAD_ITS ---
EXAM: XR CHEST, 1 VIEW CLINICAL INDICATION: chest pain TECHNIQUE: Frontal view of the chest. This report was created using [employer] report generation technology. COMPARISON: None. FINDINGS: LUNGS AND PLEURAL SPACES: Normal. No consolidation or edema. No pneumothorax. No effusion. HEART: Normal heart size. MEDIASTINUM: No mediastinal or hilar mass. BONES/JOINTS: No acute abnormality. SOFT TISSUES: Normal. RAD/Chest 1 View (Portable) IMPRESSION: No acute cardiopulmonary disease. Electronically Signed: Tj Yusuf MD at 12:05 EST ,
--- NOTE | 2022-06-06 11:23 | EDS_ITS ---
HPI History of Present Illness Chief Complaint: Dizziness Narrative Narrative: 61-year-old male presenting with dizziness. He does describe as lightheaded and vertiginous in nature. This started this morning after eating breakfast. He states he ate a large omelette and then started to feel the symptoms. He became nauseous. He states he became a little bit sweaty and clammy. He denies chest pain or shortness of breath. He has not vomited. He states his symptoms are better when he is not walking and worse when he is walking. Patient was seen yesterday because he has a history of back pain he was seen for the back pain in the ER and ultimately followed up with Dr. Maurer who ordered an MRI of his spine. The patient did not have any acute surgical issues of his spine but did have some spinal stenosis. Patient reports that the numbness and tingling in his legs is actually improving. It was noted on his MRI that he had some retroperitoneal lymphadenopathy. He followed up with Dr. De Jesus ordered a CT which showed evidence of thrombus inferior vena cava which extended into the common iliac veins bilaterally. Patient was seen in the ER yesterday and started on Lovenox 1.5 mg/kg last evening in the ER. Today he woke up with the dizziness. He denies any head trauma. No visual changes. He denies any black or bloody stools. 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 Home Medications garlic 300 mg capsule 300 mg PO DAILY 07/10/20 [History Last Taken Unknown] ibuprofen 200 mg capsule 200 mg PO Q6H PRN 07/10/20 [History Last Taken Unknown] magnesium oxide 500 mg capsule 500 mg PO DAILY 07/10/20 [History Last Taken Unknown] multivitamin with iron (Daily Multiple Vitamins with Iron tablet) 1 tab PO DAILY 07/10/20 [History Last Taken Unknown] prednisone 10 mg tablet 10 mg PO UD #30 tabs 03/11/22 [Rx Last Taken Unknown] saw palm 160 mg-vit E 100 unit-selen 100 prd-voqy-avfxah-pygeum tablet ([employer]) 1 tab PO DAILY 06/02/22 [History Last Taken Unknown] enoxaparin 150 mg/mL subcutaneous syringe (Lovenox) 129 mg (0.86 mL) subcut DAILY 4 weeks #24.08 mL 06/05/22 [Rx Last Taken Unknown] Allergy/AdvReac Type Severity Reaction Status Date / Time amoxicillin Allergy Rash Verified 06/06/22 09:58 Family History Mother Arthritis Father Heart disease Surgical History History of tonsillectomy [place] teeth removed Social History household members: spouse and children housing: house Smoking Status: Never smoker alcohol intake: current alcohol intake frequency: holidays/special occasions only what type of physical activity do you participate in: walking frequency: daily do you feel safe at home: Yes ROS ROS ED ROS Narrative Dizziness and lightheadedness Constitutional Constitutional ED: Reports sweats Eyes Eyes: Denies blurry vision or change in vision ENT ENT ED: Denies rhinorrhea or sore throat Cardiovascular Cardiovascular: Denies chest pain or palpitations Respiratory/Chest Respiratory/Chest: Denies cough or dyspnea Gastrointestinal Gastrointestinal: Denies abdominal pain, nausea or vomiting Genitourinary Genitourinary ED: Denies dysuria or hematuria Musculoskeletal Musculoskeletal: Denies arthralgias Integumentary Denies abscess or Abrasions Neurologic Neurologic: Denies headache(s) or paresthesias Psychiatric Psychiatric: Denies anxiety or depression EXAM Physical Exam Const Vital Signs: 06/06/22 09:56 06/06/22 12:10 06/06/22 12:10 Temperature 97.6 F L Temperature Source Temporal Pulse Rate 106 H 94 Respiratory Rate 18 16 Blood Pressure 149/97 H 134/91 H Blood Pressure Mean 114 105 Pulse Ox 98 95 94 Oxygen Delivery Method Room Air Room Air Room Air Positive well nourished General Appearance ED: NAD; Negative for pallor HEENT Reports moist mucous membranes and dry mucous membranes HEENT Narrative: Positive [place]-Hallpike. Nystagmus noted Mouth ED: Yes dry mucous membranes Mouth: dry mucous membranes Eyes PERRL and EOMs intact bilaterally General Eye ED: Negative for pale conjunctiva or scleral icterus Chest Wall inspection of chest normal and palpation of chest normal Resp normal respiratory effort and clear to auscultation bilaterally Auscultation: Negative for rales, rhonchi or wheezes Cardio regular rate and regular rhythm GI normal to inspection, nondistended, normoactive bowel sounds Palpation: soft Back/Spine no CVA tenderness Neuro oriented x3, CN's II-XII intact bilaterally and no sensory deficits noted Sensorium / Orientation: alert Psych mental status grossly normal Skin no rashes or lesions noted General Skin Exam: Negative for jaundice or pallor MDM MDM MDM Narrative Medical decision making narrative: 61-year-old male started on Lovenox yesterday for history of thrombosis of the IVC. He has follow-up arranged already with Dr. Nunes. He also is going to follow-up with Dr. De Jesus as well. Today he presents with lightheadedness and dizziness which started this morning. He does state that he was nauseous and felt sweaty and this resolved. This occurred after he ate but is not having any abdominal pain. His nausea is resolved. Symptoms are worse with walking positive [place]-Hallpike on examination. He was treated with meclizine and Phenergan. No other focal neurologic deficits or lateralizing signs or symptoms. No evidence of head trauma. Given his new onset of symptoms and started on Lovenox yesterday I did obtain a CT of the brain which is normal. I obtained a chest x-ray on my interpretation shows no acute cardiopulmonary process and the radiologist does agree. CBC and BMP are unremarkable. High- sensitivity troponin is 4. EKG sinus rhythm with a ventricular rate of 94 bpm without sign of ischemic change or dysrhythmia on my interpretation. I did discuss with the he and his at length that since he is not having chest pain and he has normal vital signs and normal oxygenation I do not believe we need a D-dimer or CTA of the chest as he is already on Lovenox 1.5 mg/kg daily. They are amenable to this. I will still have him follow-up with Dr. Nunes. I do believe that his symptoms are most consistent with a 9 positional vertigo and his symptoms did get better with the medication. Impression: 1. History of IVC thrombosis 2. Benign positional vertigo 3. Lightheadedness Lab Data Attestation: I reviewed the patient's lab results. Labs: Laboratory Results - last 24 hr 06/06/22 06/06/22 11:37 11:37 WBC 5.5 RBC 5.05 Hgb 14.7 Hct 44.7 MCV 88.5 MCH 29.1 MCHC 32.9 RDW Std Deviation 42.9 RDW Coeff of Lili 13.2 Plt Count 189 MPV 10.1 Immature Gran % (Auto) 0.200 Neut % (Auto) 83.0 H Lymph % (Auto) 7.8 L [place] % (Auto) 7.9 Eos % (Auto) 0.7 Baso % (Auto) 0.4 Absolute Neuts (auto) 4.6 Absolute Lymphs (auto) 0.43 L Nucleated RBC % 0 Differential Comment SCANNED Sodium 138 Potassium 3.9 Chloride 106 Carbon Dioxide 27.0 Anion Gap 5 BUN 17 Creatinine 0.82 Estim Creat Clear Calc 91.52 Est GFR (MDRD) Af Amer 123 Est GFR (MDRD) Non-Af 101 BUN/Creatinine Ratio 20.7 H Glucose 105 Calcium 9.0 Troponin I High Sens 4 Radiography Diagnostic Testing: Clinical Impression(s) from Imaging Studies Brain CT 06/06/22 11:22 IMPRESSION: No acute intracranial abnormality. Electronically Signed: Tj Yusuf MD at 12:11 EST , Chest X-Ray 06/06/22 11:22 IMPRESSION: No acute cardiopulmonary disease. Electronically Signed: Tj Yusuf MD at 12:05 EST , Discharge Plan Triage Chief Complaint: Dizziness ED Provider: Kole Sargent Dx/Rx/DC Orders Instructions: ED BPV Vertigo Prescriptions: No Action ibuprofen 200 mg capsule 200 mg PO Q6H PRN multivitamin with iron [Daily Multiple Vitamins/Iron] Tablet 1 tab PO DAILY garlic 300 mg capsule 300 mg capsule 300 mg PO DAILY magnesium oxide 500 mg capsule 500 mg PO DAILY Prostate Health 160-100-100 mg-unit-mcg tablet 1 tab PO DAILY prednisone 10 mg tablet 10 mg PO UD Qty: 30 0RF Rx Instructions: Take 4 tablets daily for 3 days, then 3 daily for 3 days, then 2 daily for 3 days, then 1 a day for 3 days enoxaparin [Lovenox] 150 mg/mL syringe 129 mg subcut DAILY 28 Days Qty: 24.08 0RF Primary Care Provider: Karsten Szymanski Referrals: Karsten Szymanski MD [Primary Care Provider] - Disposition Disposition: Home, Self Care
[2022-06-06 12:10] VITALS: BP 134/91; PULSE 94; RESP 16; O2SAT 94; O2SAT 95
[2022-06-06] MEDS: Meclizine HCl 25 MG Tablet PO (12:14)
[2022-06-06] MEDS: proMETHazine 25 MG/ML Syringe 12.5 MG IM (12:14)
[2022-06-06 12:41] LABS: Absolute Lymphocyte Count 0.43 X10^3/uL (0.83-4.51); Absolute Neutrophil Count 4.6 X10^3/uL (2.0-7.7); Basophil# 0.02 X10^3/uL; Basophil% 0.4 % (0-1); Eosinophil# 0.04 X10^3/uL; Eosinophils% 0.7 % (0-5); Hematocrit 44.7 % (40-54); Hemoglobin 14.7 g/dL (13.0-16.5); Lymphocyte # 0.43 X10^3/ul (0.83-4.51); Lymphocyte % 7.8 % (19-41); Mean Corp Hgb Conc 32.9 g/dL (32-36); Mean Corpuscular Hgb 29.1 pg (27.0-32.0); Mean Corpuscular Volume 88.5 fL (80-94); Mean Platelet Vol. 10.1 fl (6.2-12.0); Monocyte# 0.44 X10^3/uL; Monocyte% 7.9 % (0-10); NRBC Flagged by Analyzer 0 % (0-5); POSITIVE DIFFERENTIAL YES; Platelet Count 189 K/mm3 (150-450); RBC Distribution Width CV 13.2 % (11.6-14.6); RBC Distribution Width SD 42.9 fl (35.1-43.9); Red Blood Count 5.05 M/mm3 (4.6-6.2); White Blood Count 5.5 K/mm3 (4.4-11.0)
[2022-06-06 12:49] LABS: Anion Gap 5 (5-15); BUN 17 mg/dL (7-18); BUN/Creat Ratio 20.7 RATIO (10-20); Chloride 106 mmol/L (98-107); Creatinine, Serum 0.82 mg/dL (0.70-1.30); Differential Indicated SCAN CRITERIA MET; EST Glomerular Filtration Rate 101 mL/min (>60); Est Glom Filt Rate - Afr Amer 123 mL/min (>60); Estimated Creatinine Clearance 91.52 ml/min; Glucose 105 mg/dL (74-106); Potassium 3.9 mmol/L (3.5-5.1); Sodium Level 138 mmol/L (136-145); Troponin-I HS 4 pg/mL (3.0-78.0)
[2022-06-06 13:11] LABS: Differential Comment SCANNED
[2022-06-06 14:52] VITALS: RESP 20
== END 2022-06-06 14:53 | disposition home or self-care (01) ==
PROVIDERS: Emergency Provider Student in an Organized Health Care Education/Training Program; PCP Family Medicine; Visit Provider Student in an Organized Health Care Education/Training Program
DX: R42 Dizziness and giddiness (principal); R59.0 Localized enlarged lymph nodes; R11.0 Nausea; Z86.718 Personal history of other venous thrombosis and embolism
CPT/HCPCS: 70450; 71045; 80048; 84484; 85025; 93005; 96372; 99285; A4216

== ENCOUNTER 2022-06-23 07:38 | Outpatient (CLI) | payer OTHER, SELFPAY ==
[2022-06-23] VITALS (10 sets, daily range): BP systolic 128–145; BP diastolic 78–97; PULSE 82–93; RESP 10–18; TEMP 36.3; O2SAT 14–96; BMI 28.8
--- NOTE | 2022-06-23 | IMM_PTH ---
PATIENT: KYLE VAZQUEZ LOC: CT U#:[id number] AGE/SX: 61/M ROOM: RE06/23/[address]: Dr. Romaine De Jesus MD : 1960 BED: DIS: 06/23/2022 SPEC #: [id number] RECD: 06/24/22 12:44 STATUS: JHONNY REQ #: [id number] GEOVANNA: 06/23/22 00:[address]: Romaine De Jesus DEPT: IMMUNOHISTOCHEMISTRY RECD BY: Zaida Sylvester ENTERED: 06/24/22 12:47 SP TYPE: IMMUNO OTHR DR: Dr. Karsten Szymanski MD Tissues: LYMPH NODE BIOPSY Procedures: BCL-2 (add) BCL-6 (add) CD10 (add) CD138 (add) CD15 (add) CD20 (add) CD23 (add) CD3 (add) CD30 (add) CD43 (add) CD45 (add) CD5 (add) CD79A (add) CYCLIN (add) KAPPA (add) KI-67 (add) LAMBDA (add) MACRO (add) MPO (add) Vimentin (add) MUM1 (add) C-MYC (add) Pankeratin (initial) PHYSICIAN & [place] [id number] SPECIMEN INFORMATION: Tissue Source: Retroperitoneal lymph node biopsy Clinical Info: Lymphadenopathy Specimen Number: [id number] CPT code: 82575, 10242 x22 METHODOLOGY: Deparaffinized sections of prefer/formalin-fixed tissue or PAP/DQ stained slides are incubated with monoclonal/polyclonal antibodies/oligonucleotide probes. Localization is made via biotin free immunoperoxidase method. Appropriate controls are performed and reacted as expected. Results on target cell population are indicated in the following table: RESULTS: ANTIBODY / CLONE RESULT AE1-3 (AE1/AE3/PCK26) negative CD3 (PS1) positive CD5 (SP10) positive CD10 (56C6) negative CD15 (MMA) negative CD20 (L26) positive CD23 (1B12) negative CD30 (Elijah-H2) negative CD43 (L60) positive CD45 (RP2/18) positive CD79a (11E3) positive CD138 (B-A38) negative BCL-2 (bcl-2/100/D5) negative BCL-6 (PH307R/A8) negative Cyclin D1/BCL-1 (SP4) negative MUM1 (MRQ-43) negative C-MYC (Y69) negative MPO (polyclonal) negative [place] (polyclonal) negative Lambda (polyclonal) negative Vimentin (V9) positive Macro (HAM-56) positive, focal Ki-67 (30-9) positive, <10% These tests were developed and their performance characteristics determined by [facility]. They may not have been cleared or approved by the U.S. Food and Drug Administration. The FDA has determined that such clearance or approval is not necessary. The above immunohistochemical/dualISH markers are ordered and reviewed by the Pathologist. INTERPRETATION: Retroperitoneal lymph node, biopsy: Polytypic lymph node tissue. See comment. AM:colt 06/25/2022 Comment: A lymphoproliferative disorder is not identified. Flow analysis correlates with above findings. Case has been reviewed in consultation with Dr. Barger who concurs with the above diagnosis. IDC:SJ
[2022-06-23 07:52] LABS: Absolute Lymphocyte Count 0.61 X10^3/uL (0.83-4.51); Absolute Neutrophil Count 3.7 X10^3/uL (2.0-7.7); Basophil# 0.03 X10^3/uL; Basophil% 0.6 % (0-1); Eosinophil# 0.11 X10^3/uL; Eosinophils% 2.2 % (0-5); Hematocrit 47.1 % (40-54); Hemoglobin 15.1 g/dL (13.0-16.5); Lymphocyte # 0.61 X10^3/ul (0.83-4.51); Lymphocyte % 12.1 % (19-41); Mean Corp Hgb Conc 32.1 g/dL (32-36); Mean Corpuscular Hgb 28.8 pg (27.0-32.0); Mean Corpuscular Volume 89.9 fL (80-94); Mean Platelet Vol. 9.5 fl (6.2-12.0); Monocyte# 0.55 X10^3/uL; Monocyte% 10.9 % (0-10); NRBC Flagged by Analyzer 0 % (0-5); Neutrophil # 3.73 X10^3/uL (2.7-7.7); Platelet Count 201 K/mm3 (150-450); RBC Distribution Width CV 13.5 % (11.6-14.6); RBC Distribution Width SD 44.1 fl (35.1-43.9); Red Blood Count 5.24 M/mm3 (4.6-6.2)
--- NOTE | 2022-06-23 07:52 | CT_ITS ---
PROCEDURE: CT GUIDED biopsy of the left retroperitoneal lymph nodes. DATE: 06/23/2022. INDICATION: Male, 61 years old. Retroperitoneal lymphadenopathy. PHYSICIAN: Raciel Garza M.D. RADIATION DOSAGE (If Supplied By Facility): CTDIvol = ( 19.7 ) mGy, DLP = ( 525.22 ) mGycm. Individualized dose optimization techniques were utilized. PROCEDURE: The risks, benefits, and alternatives to the procedure were explained to the patient. The specific risk of hemorrhage requiring further treatment or intervention was detailed and accepted. Follow-up instructions were discussed with the patient as well. Written informed consent was obtained. The patient was brought into the CT suite and placed in the prone position. . An appropriate entry site was identified. The overlying skin was prepped and draped in the usual sterile fashion. 1% lidocaine was administered subcutaneously for local anesthesia. Conscious sedation was performed. The patient received 2 mg of VERSED and 50 mcg of FENTANYL intravenously. Conscious sedation was started at 9:43 AM and terminated at 9:58 AM. The patient was independently monitored by the department nurse. Under CT guidance, a total of 5 passes were performed utilizing an 18-gauge core biopsy needle system. The specimens were then placed in the appropriate fluid and transported to the laboratory for analysis. Hemostasis was obtained. The patient tolerated the procedure well without immediate complications. CT/Biopsy/Inj or Needle Placement IMPRESSION: Successful CT guided left retroperitoneal lymph node biopsy, as described above. Conscious sedation protocol was followed. Electronically Signed: Raciel Garza MD at 10:27 EST ,
[2022-06-23 08:23] LABS: Prothrombin Time (Protime)PT. 12.8 SECONDS (11.7-14.9)
[2022-06-23 08:24] LABS: Partial Thromboplast Time 27.3 Seconds (24.1-36.2)
[2022-06-23] MEDS: Midazolam 2 MG/2 ML Syringe IV (09:43)
[2022-06-23] MEDS: fentaNYL 100 MCG/2 ML Ampul IV (09:43)
[2022-06-23] MEDS: Lidocaine 1% (20 ml mdv) 20 ML Vial INFILT (09:52)
--- NOTE | 2022-06-23 10:00 | ASPIGT_PTH ---
PATIENT: KYLE VAZQUEZ LOC: CO U#:[id number] AGE/SX: 61/M ROOM: RE06/23/[address]: Dr. Romaine De Jesus MD : 1960 BED: DIS: 06/23/2022 SPEC #: [id number] RECD: 06/23/22 10:15 STATUS: JHONNY REQ #: [id number] GEOVANNA: 06/23/22 10:[address]: Romaine De Jesus DEPT: SURGICAL PATHOLOGY RECD BY: Rianna Quezada ENTERED: 06/23/22 10:16 SP TYPE: ASP RAD OTHR DR: Dr. Karsten Szymanski MD Tissues: Lymph node, NOS Procedures: FNA Specimen Adequacy Special Stain Group II Surgery Specimen Level IV Imprint (control) HEADER OPERATION: Retroperitoneal lymph node, CT-guided biopsy, left side PRE-OP DIAGNOSIS: Lymphadenopathy TISSUE SUBMITTED: Retroperitoneal lymph node biopsy left side MICROSCOPIC DIAGNOSIS Left retroperitoneal lymph node, CT-guided core biopsy: Polytypic lymphoid tissue present. See comment. AM:colt 06/25/2022 COMMENT The specimen is evaluated at the time of biopsy by Dr. Contreras. Immediate Evaluation = Blood and polymorphous lymphocytes present. A malignant lymphoproliferative disorder is not identified. Flow cytometry analysis reveals a mixed population of B and T cell lymphocytes. The complete flow cytometry analysis report is viewable in EMR. Immunohistochemistry ([id number]) supports the above diagnosis. Case has been reviewed in consultation with Dr. Barger who concurs with the above diagnosis. IDC:SJ MICROSCOPIC DESCRIPTION Slides are reviewed. GROSS DESCRIPTION Received in fixative is one container labeled with the patient's name and designated left retroperitoneal lymph node. The specimen consists of multiple elongated fragments of schwarz tissue that in aggregate measure 1 x <0.1 x <0.1 cm. The specimen is totally submitted in one cassette. / AM:colt 06/23/2022 TC:5 CPT: 66596, 45776
== END 2022-06-23 23:59 | disposition home or self-care (01) ==
PROVIDERS: PCP Family Medicine; Referring Provider Internal Medicine Hematology & Oncology; Visit Provider Internal Medicine Hematology & Oncology
DX: Z01.818 Encounter for other preprocedural examination (principal); I82.220 Acute embolism and thrombosis of inferior vena cava; R59.0 Localized enlarged lymph nodes; Z79.01 Long term (current) use of anticoagulants; R60.9 Edema, unspecified
CPT/HCPCS: 38505; 36415; 77012; 85025; 85610; 85730; 88172; 88305; 88313; 88341; 88342; 96374; 99156; J7050

== ENCOUNTER 2022-07-02 06:30 | Inpatient (IN) | payer OTHER, SELFPAY ==
[2022-07-02 06:32] VITALS: BP 146/88; PULSE 89; RESP 18; TEMP 36.6; O2SAT 97; BMI 28.8
--- NOTE | 2022-07-02 06:45 | CT_ITS ---
STUDY: CT ABDOMEN AND PELVIS WITH CONTRAST REASON FOR EXAM: Male, 61 years old. Left lower quadrant pain RADIATION DOSAGE (If Supplied By Facility): CTDIvol = ( 15.11 ) mGy, DLP = ( 1141.22 ) mGycm TECHNIQUE: Transaxial images were obtained from the dome of the diaphragm to the symphysis pubis without oral contrast. IV 100mL Isovue-300 was administered. Sagittal and coronal images were reconstructed. Individualized dose optimization techniques were used for this CT. COMPARISON: 06/05/2022 FINDINGS: The visualized lung bases are unremarkable aside from dependent atelectasis. The visualized portions of the heart are within normal limits. Liver is unremarkable aside from a lobulated 2 cm simple cyst in the right lobe. Normal gallbladder and extrahepatic biliary system. Normal spleen. Normal pancreas. There is a 2 cm accessory spleen. Normal bilateral adrenal glands. Normal right kidney. Normal left kidney. Normal visualized stomach. Normal small intestine. Retained stool in the colon. There is non-visualization of the appendix. Normal abdominal aorta. As with the previous study, there is again evidence of low-density thrombus within the inferior aspect of the vena cava. This is best seen on coronal recon images 50 through 73. Thrombus again extends into both common iliac arteries. There are also persistent abnormally enlarged periaortic and retroperitoneal lymph nodes measuring up to 2.4 cm in short axis dimension. Some of these were biopsied in on 06/23/2022. There is now abnormal enlargement of the left psoas muscle compared to the right. There is infiltration of the fat around the psoas muscle and wasn''t see changes within the psoas muscle consistent with a likely hematoma from the biopsy on June 23. On axial images 55 through 61, there is a hyperdensity within the left psoas muscle suggesting there may be an active bleeder. This likely explains the patient''s left lower quadrant pain and discomfort. Normal urinary bladder. Normal abdominal wall. There are diffuse degenerative changes of the visualized lumbar spine, and pelvis. CT/Abdomen/Pelvis W IV Cont ONLY IMPRESSION: Abnormal enlargement of the left psoas muscle compared to the right low-density changes within the psoas muscle suggesting hematoma from recent biopsy. There is also however a hyperdensity within the left psoas muscle from images 55-61 suggesting there is an acute bleed within the left psoas muscle. Persistent abnormal periaortic and retroperitoneal adenopathy. This bulky adenopathy can be seen with lymphoma or leukemia but also with metastasis. Little significant change since the previous study, these have been recently biopsied Stable low-density thrombus within the distal IVC extending into the common iliac veins Stable simple hepatic cyst, no specific follow-up needed Nonspecific induration of the mesenteric fat also unchanged Degenerative bony changes N.B. : The above Results were Read Back by Serafin Michelle MD to Gideon Willett MD, and understanding confirmed on 07/02/2022 08:20:19 (ET). Electronically Signed: Serafin Michelle MD at 8:21 EST ,
--- NOTE | 2022-07-02 06:46 | ED.VIS.GI ---
HPI HPI - GI History of Present Illness Chief Complaint: Abd Pain Informant: patient and spouse/S.O. Abdominal Pain/Flank Pain Onset: Yesterday Context: Gradual Onset Timing: Continuous Quality: Aching Location: LLQ (Radiating into left thigh/groin) and Left Flank Current Severity: Severe Maximum Severity: Severe Worsened by: Movement (Patient thigh flexion) Nausea/Vomiting/Emesis GI Symptom: Positive for Nausea; Negative for Vomiting Diarrhea/Melena/Hematochezia GI Symptom: Negative for Diarrhea, Melena or Hematochezia Associated Symptoms Associated Symptoms: Negative for Dysuria, Frequency or Hematuria Narrative Narrative: Patient with gradual onset of pain in the left flank that started yesterday, progressively worsening through the evening and into this morning now in the left lower quadrant. Never had pain like this before. 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 Was due to see Dr. Nunes with vascular this morning, but decided to come here to the emergency department due to this pain. He has chronic tingling in his right foot since he had the clot diagnosed and that is no different, he denies any neurologic symptoms in the left lower extremity, no saddle anesthesia, no bowel or bladder dysfunction, he does have pain in the left low back and states that seem to start first yesterday before it was in his flank and now the left lower quadrant. He denies any urinary symptoms. He has had no abdominal surgeries in the past, he did have a biopsy of some retroperitoneal lymph nodes that were abnormal, and he states they turned out to be nonmalignant. No recent fevers. No abnormal bowel movements recently. Some nausea when the pain is severe, but no vomiting. 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 Home Medications garlic 300 mg capsule 300 mg PO DAILY 07/10/20 [History Last Taken Unknown] magnesium oxide 500 mg capsule 500 mg PO DAILY 07/10/20 [History Last Taken Unknown] multivitamin with iron (Daily Multiple Vitamins with Iron tablet) 1 tab PO DAILY 07/10/20 [History Last Taken Unknown] saw palm 160 mg-vit E 100 unit-selen 100 bpd-fnhe-tanhsa-pygeum tablet ([employer]) 1 tab PO DAILY 06/02/22 [History Last Taken Unknown] enoxaparin 150 mg/mL subcutaneous syringe (Lovenox) 129 mg (0.86 mL) subcut DAILY 4 weeks #24.08 mL 06/05/22 [Rx Last Taken Unknown] Allergy/AdvReac Type Severity Reaction Status Date / Time amoxicillin Allergy Rash Verified 07/02/22 07:28 Family History Mother Arthritis Father Heart disease Surgical History History of tonsillectomy [place] teeth removed Social History household members: spouse and children housing: house Smoking Status: Never smoker alcohol intake: current alcohol intake frequency: holidays/special occasions only what type of physical activity do you participate in: walking frequency: daily do you feel safe at home: Yes ROS ROS ED Constitutional Constitutional ED: Denies chills or fever(s) Eyes Eyes: Denies change in vision or diplopia ENT ENT ED: Denies rhinorrhea or sore throat Cardiovascular Cardiovascular: Denies chest pain or palpitations Respiratory/Chest Respiratory/Chest: Denies cough or dyspnea Gastrointestinal Gastrointestinal: Reports abdominal pain and nausea; Denies diarrhea, melena or vomiting Genitourinary Genitourinary ED: Reports as per HPI and flank pain; Denies dysuria or hematuria Musculoskeletal Musculoskeletal: Reports as per HPI, back pain and extremity pain; Denies neck pain Integumentary Denies abscess or rash Neurologic Neurologic: Denies headache(s), paresthesias or weakness Psychiatric Psychiatric: Denies anxiety or suicidal thoughts Hematologic/Lymphatic Hematologic/Lymphatic: Reports easy bleeding and easy bruising EXAM Physical Exam Const Vital Signs: 07/02/22 06:32 Temperature 97.8 F Temperature Source Temporal Pulse Rate 89 Respiratory Rate 18 Blood Pressure 146/88 H Blood Pressure Mean 107 Pulse Ox 97 Oxygen Delivery Method Room Air Positive well nourished and well developed General Appearance ED: well developed and NAD HEENT Reports moist mucous membranes normocephalic and atraumatic Eyes PERRL and EOMs intact bilaterally Neck full ROM and supple Resp normal respiratory effort and clear to auscultation bilaterally Cardio regular rate, regular rhythm and no murmurs GI non-distended GI Narrative: Tender in the left lower quadrant, extending laterally toward the distal left flank. Small ecchymosis medial anterior abdominal wall due to Lovenox injection site, nontender. No Gallardo Manjarrez sign. No Gumaro sign. No CVA tenderness. Nontender throughout the back. No guarding or rebound in the abdomen. Auscultation: normoactive bowel sounds Palpation: soft Back/Spine no CVA tenderness General Back: other FROM Extremity normal to inspection Extremity Narrative: Tender in the left groin, no palpable lymphadenopathy, but tender in the area of the quadriceps insertion, with significant discomfort reproduced with attempting to perform a thigh flexion. He is sitting with almost full thigh flexion and his foot on the bed prior to this, and with passive full internal and full external rotation, he does not have any groin pain or tenderness of the greater trochanter. Straight leg raises are negative, and as long as I am doing it passively they do not reproduce any pain. General Extremety ED: Yes tenderness; Negative for edema or pulses abnormal General Extremity: Negative for edema or pulses abnormal Neuro oriented x3, CN's II-XII intact bilaterally and no sensory deficits noted Sensorium / Orientation: awake and alert Motor Exam: strength 5/5 throughout Psych mental status grossly normal and thought process normal Skin no rashes or lesions noted and no wounds MDM MDM MDM Narrative Medical decision making narrative: It is unknown how the left lower quadrant process/pain and his left thigh flexion pain are linked. He has intact distal pulses in both feet and I do not think this is necessarily an acute vascular phenomenon. However given his recent vascular issues, considering diverticulitis, ureterolithiasis, and vascular etiologies, an IV contrasted CT was performed, in addition to labs, urinalysis, and providing the patient with fluids, morphine, Zofran. At this time, basic labs are normal, patient does have a leftward shift suggesting the possibility of infection however his total white blood count is only 7.5, there are no bands. Chemistries are all unremarkable. I interpreted the CT imaging. He appears to have an acute hematoma with a blush of contrast suggesting active bleeding in the left psoas which would explain all of his pain. Discussed with patient, the retroperitoneal lymph node biopsy that he had was indeed done on the left side, about 1 week ago. He held his Lovenox for the procedure, and then he restarted it the night of. This pain did not start until yesterday. Discussed with Dr. Nunes, he request that we admit the patient to hospitalist and he will see the patient in the hospital, just holding anticoagulation for now. He is hemodynamically stable, his hemoglobin is 14.5, there is no specific compression of any vascular structures, so I do not think he needs to be admitted to the ICU. My interpretation of the CT agrees with that of the radiologist. Lab Data Attestation: I reviewed the patient's lab results. Labs: Laboratory Results - last 24 hr 07/02/22 07/02/22 07/02/22 07:03 07:03 07:50 WBC 7.5 RBC 5.06 Hgb 14.5 Hct 43.8 MCV 86.6 MCH 28.7 MCHC 33.1 RDW Std Deviation 41.5 RDW Coeff of Lili 13.3 Plt Count 204 MPV 9.5 Immature Gran % (Auto) 0.400 Neut % (Auto) 90.7 H Lymph % (Auto) 5.1 L [place] % (Auto) 3.2 Eos % (Auto) 0.3 Baso % (Auto) 0.3 Absolute Neuts (auto) 6.8 Absolute Lymphs (auto) 0.38 L Nucleated RBC % 0 Sodium 137 Potassium 3.8 Chloride 104 Carbon Dioxide 28.0 Anion Gap 5 BUN 17 Creatinine 0.95 Estim Creat Clear Calc 79.00 Est GFR (MDRD) Af Amer 103 Est GFR (MDRD) Non-Af 85 BUN/Creatinine Ratio 17.8 Glucose 158 H Calcium 9.5 Urine Color Straw Urine Clarity Clear Urine pH 8.0 Ur Specific [place] 1.010 Urine Protein Negative Urine Glucose (UA) Normal Urine Ketones Negative Urine Occult Blood Negative Urine Nitrite Negative Urine Bilirubin Negative Urine Urobilinogen Normal Ur Leukocyte Esterase Negative Urine RBC 0 SEEN Urine WBC 0 SEEN Ur Squamous Epith Cells 0 SEEN Urine Bacteria 0 SEEN Urine Mucus 0 SEEN Discharge Plan Dx/Rx/DC Orders Clinical Impression: Hematoma of left iliopsoas muscle, IVC thrombosis, Anticoagulated Disposition Disposition: Acute Care [facility]
[2022-07-02] MEDS: 0.9% Normal Saline 1,000 ML 1000 ML IV (07:07)
[2022-07-02 07:08] LABS: Absolute Lymphocyte Count 0.38 X10^3/uL (0.83-4.51); Absolute Neutrophil Count 6.8 X10^3/uL (2.0-7.7); Basophil# 0.02 X10^3/uL; Basophil% 0.3 % (0-1); Eosinophil# 0.02 X10^3/uL; Eosinophils% 0.3 % (0-5); Hematocrit 43.8 % (40-54); Hemoglobin 14.5 g/dL (13.0-16.5); Lymphocyte # 0.38 X10^3/ul (0.83-4.51); Lymphocyte % 5.1 % (19-41); Mean Corp Hgb Conc 33.1 g/dL (32-36); Mean Corpuscular Hgb 28.7 pg (27.0-32.0); Mean Corpuscular Volume 86.6 fL (80-94); Mean Platelet Vol. 9.5 fl (6.2-12.0); Monocyte# 0.24 X10^3/uL; Monocyte% 3.2 % (0-10); NRBC Flagged by Analyzer 0 % (0-5); Neutrophil % 90.7 % (47-70); POSITIVE DIFFERENTIAL YES; Platelet Count 204 K/mm3 (150-450); RBC Distribution Width CV 13.3 % (11.6-14.6); RBC Distribution Width SD 41.5 fl (35.1-43.9); Red Blood Count 5.06 M/mm3 (4.6-6.2); White Blood Count 7.5 K/mm3 (4.4-11.0)
[2022-07-02] MEDS: Ondansetron 4 MG/2 ML Vial IV (07:08)
[2022-07-02] MEDS: Morphine 4 MG/ML Syringe IV ×2 (07:08→08:42)
[2022-07-02 07:19] LABS: Differential Indicated SCAN CRITERIA MET
[2022-07-02 07:21] LABS: Anion Gap 5 (5-15); BUN 17 mg/dL (7-18); BUN/Creat Ratio 17.8 RATIO (10-20); Calcium,Total 9.5 mg/dL (8.5-10.1); Chloride 104 mmol/L (98-107); Creatinine, Serum 0.95 mg/dL (0.70-1.30); EST Glomerular Filtration Rate 85 mL/min (>60); Est Glom Filt Rate - Afr Amer 103 mL/min (>60); Glucose 158 mg/dL (74-106); Potassium 3.8 mmol/L (3.5-5.1); Sodium Level 137 mmol/L (136-145)
[2022-07-02 07:59] LABS: Bacteria 0 SEEN /hpf (None Seen); Color, Urine Straw (Yellow); Glucose, Dipstick Normal (Normal); Ketone-Dipstick Negative (Negative); Leukocyte Esterase-Dipstick Negative /ul (Negative); Mucous, Urine 0 SEEN /hpf (<or=2+); Nitrite-Dipstick Negative (Negative); Occult Blood-Urine Negative /ul (Negative); Protein-Dipstick Negative (Negative); Red Blood Cells-Urine 0 SEEN /hpf (0-5); Squamous Epithelial Cells - UA 0 SEEN /hpf (0-5); Urine Bilirubin Dipstick Negative (Negative); Urine Clarity Clear (Clear); Urine Urobilinogen Normal (Normal); White Blood Cells 0 SEEN /hpf (0-5)
--- NOTE | 2022-07-02 08:17 | HP.PCM.HOS_ITS ---
[facility] - General General Date of Admission: 07/02/22 Date of Service: 07/02/22 Chief Complaint: Left lower quadrant abdominal pain [facility] Narrative KYLE VAZQUEZ, is a 61 M who presents with left lower quadrant abdominal pain. Patient had been diagnosed with retroperitoneal adenopathy as well as inferior vena cava thrombus. Was placed on Lovenox for treatment. As part of evaluation for his adenopathy patient underwent CT-guided biopsy of his retroperitoneal adenopathy. Patient started experiencing left lower quadrant abdominal pain a day prior to his admission. In view of worsening symptoms he presented to the emergency department. CT of the abdomen and pelvis demonstrated abnormal enlargement of the left psoas muscle consistent with hematoma. 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 Home Medications garlic 300 mg capsule 300 mg PO DAILY 07/10/20 [History Last Taken Unknown] magnesium oxide 500 mg capsule 500 mg PO DAILY 07/10/20 [History Last Taken Unknown] multivitamin with iron (Daily Multiple Vitamins with Iron tablet) 1 tab PO DAILY 07/10/20 [History Last Taken Unknown] saw palm 160 mg-vit E 100 unit-selen 100 bsf-gsmc-olqtrk-pygeum tablet ([employer]) 1 tab PO DAILY 06/02/22 [History Last Taken Unknown] enoxaparin 150 mg/mL subcutaneous syringe (Lovenox) 129 mg (0.86 mL) subcut DAILY 4 weeks #24.08 mL 06/05/22 [Rx Last Taken Unknown] Allergy/AdvReac Type Severity Reaction Status Date / Time amoxicillin Allergy Rash Verified 07/02/22 07:28 Family History Mother Arthritis Father Heart disease Surgical History History of tonsillectomy [place] teeth removed Social History household members: spouse and children housing: house Smoking Status: Never smoker alcohol intake: current alcohol intake frequency: holidays/special occasions only what type of physical activity do you participate in: walking frequency: daily do you feel safe at home: Yes ROS ROS Narrative GENERAL: denies fever, chills, night sweats, weight loss, anorexia HEENT: denies headache, sinus congestion, or drainage, dysphagia RESPIRATORY: denies cough, sputum production, shortness of breath, CARDIAC: denies chest pain, palpitations, orthopnea, PND GASTROINTESTINAL: Left lower quadrant abdominal pain GENITOURINARY: denies dysuria, urgency, frequency, heamaturia EXTREMITY: denies swelling MUSCULOSKELETAL: Bilateral lower extremity pain NEUROLOGIC: denies focal numbness, weakness, tingling HEMATOLOGIC: denies easy bruising and/or hemorrhage INTEGUMENT: denies rashes PSYCHIATRIC: denies suicidal or homicidal ideation Vital Signs Vital Signs Vital Signs: 07/02/22 06:32 Temperature 97.8 F Temperature Source Temporal Pulse Rate 89 Respiratory Rate 18 Blood Pressure 146/88 H Blood Pressure Mean 107 Pulse Ox 97 Oxygen Delivery Method Room Air Weight Weight: 86.183 kg Body Mass Index (BMI) 28.8 Physical Exam Narrative GENERAL: cooperative HEENT: Atraumatic; normocephalic EYES; Anicteric, Normal Conjunctiva NECK; supple, normal thyroid, RESPIRATORY: Diminished to auscultation CARDIOVASCULAR: Regular S1 S2, GI: soft, normoactive bowel sounds, : No Renal angle tenderness; EXTREMITIES: No edema, no clubbing, MUSCULOSKELETAL: no muscle wasting NEURO: Awake; no lateralizing signs. SKIN: No Rash PSYCH; Flat affect Results Lab / Micro Data Result Diagrams: 07/02/22 07:03 07/02/22 07:03 Labs: Laboratory Results - last 24 hr 07/02/22 07:03: WBC 7.5, RBC 5.06, Hgb 14.5, Hct 43.8, MCV 86.6, MCH 28.7, MCHC 33.1, RDW Std Deviation 41.5, RDW Coeff of Lili 13.3, Plt Count 204, MPV 9.5, Immature Gran % (Auto) 0.400, Neut % (Auto) 90.7 H, Lymph % (Auto) 5.1 L, [place] % (Auto) 3.2, Eos % (Auto) 0.3, Baso % (Auto) 0.3, Absolute Neuts (auto) 6.8, Absolute Lymphs (auto) 0.38 L, Nucleated RBC % 0 07/02/22 07:03: Sodium 137, Potassium 3.8, Chloride 104, Carbon Dioxide 28.0, Anion Gap 5, BUN 17, Creatinine 0.95, Estim Creat Clear Calc 79.00, Est GFR (MDRD) Af Amer 103, Est GFR (MDRD) Non-Af 85, BUN/Creatinine Ratio 17.8, Glucose 158 H, Calcium 9.5 07/02/22 07:50: Urine Color Straw, Urine Clarity Clear, Urine pH 8.0, Ur Specific [place] 1.010, Urine Protein Negative, Urine Glucose (UA) Normal, Urine Ketones Negative, Urine Occult Blood Negative, Urine Nitrite Negative, Urine Bilirubin Negative, Urine Urobilinogen Normal, Ur Leukocyte Esterase Negative, Urine RBC 0 SEEN, Urine WBC 0 SEEN, Ur Squamous Epith Cells 0 SEEN, Urine B acteria 0 SEEN, Urine Mucus 0 SEEN Assessment & Plan Assessment/Plan (1) Hematoma of left iliopsoas muscle: PLAN: Plan Patient is a 61-year-old gentleman with recent diagnosis of IVC thrombus on s ystemic anticoagulation with Lovenox who presented with left lower quadrant abdominal pain [address]-guided biopsy of a retroperitoneal lymph node. CT of the abdomen and pelvis obtained on admission demonstrated hematoma involving the left iliopsoas muscle 1. Left lower quadrant abdominal pain secondary to left iliopsoas muscle hematoma ? This is possibly iatrogenic following patient recent biopsy as well as his use of systemic anticoagulants. Patient Lovenox held on admission admitted to monitored bed for pain management with consultation placed to vascular surgery 2. IVC filter thrombus ? Patient was on Lovenox had to be held in view of above. Consult has been placed to Dr. Nunes with vascular surgery 3. Retroperitoneal adenopathy ? Patient underwent CT-guided lymph node biopsy on 06/23/2022. It was a nondiagnostic biopsy with no evidence of malignancy 4. DVT prophylaxis ? Patient was on Lovenox for an IVC thrombus. Lovenox held in view of above Time spent in the patient's overall evaluation,decision-making process, review of diagnostic data, adjustment of management, discussion with other providers, nursing nursing and ancillary staff involved in patient's care documentation, 55 Minutes Charges/Coding Visit Charges Inpatient E&M: 18776 Init Hosp L2
[2022-07-02 08:30] VITALS: BP 133/84; PULSE 90; RESP 18; O2SAT 96
[2022-07-02 08:34] VITALS: BP 135/86; PULSE 95; RESP 16; TEMP 37; O2SAT 97
[2022-07-02 09:09] VITALS: BMI 28.1
--- NOTE | 2022-07-02 09:20 | NURSING ---
EMERGENCY DOCUMENTATION 07/02/22 0928
[2022-07-02 09:30] VITALS: BP 137/86; PULSE 95; RESP 18; TEMP 37; O2SAT 95
[2022-07-02] MEDS: HYDROmorphone 1 MG/ML Syringe IV ×3 (12:41→21:16)
[2022-07-02] MEDS: 0.9% Saline Lock 10 ML Syringe IV ×2 (12:42→17:30)
[2022-07-02] MEDS: Magnesium Chloride 64 MG Delay Rel.Tablet 128 MG PO (12:46)
[2022-07-02] MEDS: oxyCODONE 5 MG Tablet PO (15:11)
[2022-07-02] MEDS: Acetaminophen 325 MG Tablet 650 MG PO (15:12)
[2022-07-02 15:30] VITALS: BP 136/97; PULSE 89; RESP 18; TEMP 36.8; O2SAT 97
--- NOTE | 2022-07-02 17:04 | CON.PCM.SX_ITS ---
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 -discussed IVC filter, but given extent of thrombus would need to be supra-renal which isnt ideal location -given likely duration of IVC process about 4 months, and that he has been on lovenox about a month it is unlikely to result in PE if lovenox held a few days -also discussed potential options to attempt to embolize lumbar feeder vessel, though oftne difficult to identify -plan to hold lovenox, repeat CT Wednesday, potential DC if pain controlled and labs/CT stable with plan to resume lovenox at about 5 days HPI Consult Data Date of Consult: 07/02/22 HPI Narrative HPI Narrative: KYLE VAZQUEZ, is a 61 M who presents with left flank pain. He has known IVC occlusion, unknown duration and was on lovenox. He underwent CT guided biopsy about 2 weeks ago for diffuse adenopathy with left flank approach. He began his lovenox about 12 hours after biopsy. Pain began a few days after biopsy, worsened last night. CT revealed left psoas hematoma. Stable IVC occlusion. 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 Home Medications garlic 300 mg capsule 300 mg PO DAILY 07/10/20 [History Last Taken Unknown] magnesium oxide 500 mg capsule 500 mg PO DAILY 07/10/20 [History Last Taken Unknown] multivitamin with iron (Daily Multiple Vitamins with Iron tablet) 1 tab PO DAILY 07/10/20 [History Last Taken Unknown] saw palm 160 mg-vit E 100 unit-selen 100 [id number]-[id number]-[id number] tablet ([employer]) 1 tab PO DAILY 06/02/22 [History Last Taken Unknown] enoxaparin 150 mg/mL subcutaneous syringe (Lovenox) 129 mg (0.86 mL) subcut DAILY 4 weeks #24.08 mL 06/05/22 [Rx Last Taken Unknown] Allergy/AdvReac Type Severity Reaction Status Date / Time amoxicillin Allergy Rash Verified 07/02/22 07:28 Family History Mother Arthritis Father Heart disease Surgical History History of tonsillectomy [place] teeth removed Social History household members: spouse and children housing: house Smoking Status: Never smoker alcohol intake: current alcohol intake frequency: holidays/special occasions only what type of physical activity do you participate in: walking frequency: daily do you feel safe at home: Yes ROS Constitutional Constitutional: Denies chills, fever(s), frequent falls, lethargy or weakness Cardiovascular Cardiovascular: Reports leg edema; Denies chest pain or leg ulcers Integumentary Integumentary: Reports other Details: ; Denies erythema, non-healing lesions or wounds Hematologic/Lymphatic Hematologic/Lymphatic: Reports lymphadenopathy; Denies easy bleeding or easy bruising Physical Exam Const alert, oriented x3, no apparent distress and healthy appearing General Appearance: cooperative; Negative for combative or lethargic Orientation / Consciousness: awake Exam Limitations: no limitations HEENT Head and Scalp: normocephalic and atraumatic Eyes EOMs intact bilaterally General Eye: normal appearance of both eyes Neck full ROM General: trachea midline Resp normal respiratory effort and no use of accessory muscles Effort and Inspection: Negative for labored, stridor or audible wheezes Cardio regular rate and regular rhythm Back/Spine Cervical Spine: cervical ROM normal Extremity full ROM Neuro oriented x3 and CN's II-XII intact bilaterally Psych thought process normal, cooperative, affect normal, speech normal and activity/motor behavior normal Lab / Micro Data Result Diagrams: 07/02/22 07:03 07/02/22 07:03 Labs: Laboratory Results - last 24 hr 07/02/22 07:03: WBC 7.5, RBC 5.06, Hgb 14.5, Hct 43.8, MCV 86.6, MCH 28.7, MCHC 33.1, RDW Std Deviation 41.5, RDW Coeff of Lili 13.3, Plt Count 204, MPV 9.5, Immature Gran % (Auto) 0.400, Neut % (Auto) 90.7 H, Lymph % (Auto) 5.1 L, [place] % (Auto) 3.2, Eos % (Auto) 0.3, Baso % (Auto) 0.3, Absolute Neuts (auto) 6.8, Absolute Lymphs (auto) 0.38 L, Nucleated RBC % 0 07/02/22 07:03: Sodium 137, Potassium 3.8, Chloride 104, Carbon Dioxide 28.0, Anion Gap 5, BUN 17, Creatinine 0.95, Estim Creat Clear Calc 79.00, Est GFR (MDRD) Af Amer 103, Est GFR (MDRD) Non-Af 85, BUN/Creatinine Ratio 17.8, Glucose 158 H, Calcium 9.5 07/02/22 07:50: Urine Color Straw, Urine Clarity Clear, Urine pH 8.0, Ur Specific Reed 1.010, Urine Protein Negative, Urine Glucose (UA) Normal, Urine Ketones Negative, Urine Occult Blood Negative, Urine Nitrite Negative, Urine Bilirubin Negative, Urine Urobilinogen Normal, Ur Leukocyte Esterase Negative, Urine RBC 0 SEEN, Urine WBC 0 SEEN, Ur Squamous Epith Cells 0 SEEN, Urine Bacteria 0 SEEN, Urine Mucus 0 SEEN Radiology Impression Abdomen/Pelvis CT 07/02/22 06:45 IMPRESSION: Abnormal enlargement of the left psoas muscle compared to the right low-density changes within the psoas muscle suggesting hematoma from recent biopsy. There is also however a hyperdensity within the left psoas muscle from images 55-61 suggesting there is an acute bleed within the left psoas muscle. Persistent abnormal periaortic and retroperitoneal adenopathy. This bulky adenopathy can be seen with lymphoma or leukemia but also with metastasis. Little significant change since the previous study, these have been recently biopsied Stable low-density thrombus within the distal IVC extending into the common iliac veins Stable simple hepatic cyst, no specific follow-up needed Nonspecific induration of the mesenteric fat also unchanged Degenerative bony changes N.B. : The above Results were Read Back by Serafin Michelle MD to Gideon Willett MD, and understanding confirmed on 07/02/2022 08:20:19 (ET). Electronically Signed: Serafin Michelle MD at 8:21 EST , ADDENDUM: 07/02/22 0828 IMPRESSION: Abnormal enlargement of the left psoas muscle compared to the right low-density changes within the psoas muscle suggesting hematoma from recent biopsy. There is also however a hyperdensity within the left psoas muscle from images 55-61 suggesting there is an acute bleed within the left psoas muscle. Persistent abnormal periaortic and retroperitoneal adenopathy. This bulky adenopathy can be seen with lymphoma or leukemia but also with metastasis. Little significant change since the previous study, these have been recently biopsied Stable low-density thrombus within the distal IVC extending into the common iliac veins Stable simple hepatic cyst, no specific follow-up needed Nonspecific induration of the mesenteric fat also unchanged Degenerative bony changes N.B. : The above Results were Read Back by Serafin Michelle MD to Gideon Willett MD, and understanding confirmed on 07/02/2022 08:20:19 (ET). Electronically Signed: Serafin Michelle MD at 8:21 EST , Charges/Coding Visit Charges Inpatient E&M: 88738 Init Hosp L2
[2022-07-02 20:31] VITALS: BP 149/83; PULSE 88; RESP 16; TEMP 36.7; O2SAT 97
[2022-07-03 03:11] VITALS: BP 149/88; PULSE 86; RESP 16; TEMP 36.5; O2SAT 96
[2022-07-03] MEDS: 0.9% Saline Lock 10 ML Syringe IV ×2 (03:20→13:41)
[2022-07-03] MEDS: HYDROmorphone 1 MG/ML Syringe IV (03:20)
[2022-07-03 07:23] LABS: Absolute Lymphocyte Count 0.66 X10^3/uL (0.83-4.51); Basophil# 0.03 X10^3/uL; Basophil% 0.5 % (0-1); Eosinophil# 0.09 X10^3/uL; Eosinophils% 1.4 % (0-5); Hematocrit 41.6 % (40-54); Hemoglobin 14.1 g/dL (13.0-16.5); Lymphocyte # 0.66 X10^3/ul (0.83-4.51); Lymphocyte % 10.3 % (19-41); Mean Corp Hgb Conc 33.9 g/dL (32-36); Mean Corpuscular Hgb 30.1 pg (27.0-32.0); Mean Corpuscular Volume 88.9 fL (80-94); Mean Platelet Vol. 9.2 fl (6.2-12.0); Monocyte# 0.63 X10^3/uL; Monocyte% 9.8 % (0-10); NRBC Flagged by Analyzer 0 % (0-5); Neutrophil % 77.8 % (47-70); Platelet Count 198 K/mm3 (150-450); RBC Distribution Width CV 13.9 % (11.6-14.6); RBC Distribution Width SD 44.6 fl (35.1-43.9); Red Blood Count 4.68 M/mm3 (4.6-6.2); White Blood Count 6.4 K/mm3 (4.4-11.0)
[2022-07-03 07:48] LABS: Anion Gap 7 (5-15); BUN 13 mg/dL (7-18); Chloride 103 mmol/L (98-107); Creatinine, Serum 0.93 mg/dL (0.70-1.30); EST Glomerular Filtration Rate 88 mL/min (>60); Est Glom Filt Rate - Afr Amer 106 mL/min (>60); Glucose 109 mg/dL (74-106); Sodium Level 139 mmol/L (136-145)
[2022-07-03 08:59] VITALS: O2SAT 95
[2022-07-03 09:10] VITALS: BP 141/85; PULSE 91; RESP 18; TEMP 36.3; O2SAT 96
[2022-07-03] MEDS: Acetaminophen 325 MG Tablet 650 MG PO ×2 (09:21→20:50)
[2022-07-03] MEDS: oxyCODONE 5 MG Tablet PO ×2 (09:21→13:42)
[2022-07-03] MEDS: Magnesium Chloride 64 MG Delay Rel.Tablet 128 MG PO (09:21)
--- NOTE | 2022-07-03 10:11 | PCM.PN.HOSP ---
Subjective Subjective f/u left iliopsoas muscle hematoma Admitted to a monitored bed managed conservatively with consultation placed to vascular surgery Case discussed with Dr. Nunes plan is to continue with observation with repeat CT of the abdomen ordered for 07/05/2021 Objective Data Objective Data Vital Signs: Vital Signs Temp Pulse Resp BP Pulse Ox O2 Del Method 97.4 F L 91 18 141/85 H 96 Room Air 07/03/22 09:10 07/03/22 09:10 07/03/22 09:10 07/03/22 09:10 07/03/22 09:10 07/03/22 09:25 Oxygen Delivery Method Room Air Weight: 84.1 kg Body Mass Index (BMI) 28.1 Intake & Output: Intake and Output for Last 24 Hours 07/01/22 07/02/22 07/03/22 23:59 23:59 23:59 Intake Total 1360 / 1360 Output Total 625 / 625 Balance 735 / 735 Lab / Micro Data Result Diagrams: 07/03/22 07:04 07/03/22 07:04 Labs: Laboratory Results - last 24 hr 07/03/22 07:04: WBC 6.4, RBC 4.68, Hgb 14.1, Hct 41.6, MCV 88.9, MCH 30.1, MCHC 33.9, RDW Std Deviation 44.6 H, RDW Coeff of Lili 13.9, Plt Count 198, MPV 9.2, Immature Gran % (Auto) 0.200, Neut % (Auto) 77.8 H, Lymph % (Auto) 10.3 L, [place] % (Auto) 9.8, Eos % (Auto) 1.4, Baso % (Auto) 0.5, Absolute Neuts (auto) 5.0, Absolute Lymphs (auto) 0.66 L, Nucleated RBC % 0 07/03/22 07:04: Sodium 139, Potassium 4.0, Chloride 103, Carbon Dioxide 29.0, Anion Gap 7, BUN 13, Creatinine 0.93, Estim Creat Clear Calc 80.70, Est GFR (MDRD) Af Amer 106, Est GFR (MDRD) Non-Af 88, BUN/Creatinine Ratio 14.0, Glucose 109 H, Calcium 9.0 Physical Exam Narrative GENERAL: cooperative HEENT: Atraumatic; normocephalic EYES; Anicteric, Normal Conjunctiva NECK; supple, normal thyroid, RESPIRATORY: Diminished to auscultation CARDIOVASCULAR: Regular S1 S2, GI: soft, normoactive bowel sounds, : No Renal angle tenderness; EXTREMITIES: No edema, no clubbing, MUSCULOSKELETAL: no muscle wasting NEURO: Awake; no lateralizing signs. 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 CT of the abdomen and pelvis obtained on admission demonstrated hematoma involving the left iliopsoas muscle 1. Left lower quadrant abdominal pain secondary to left iliopsoas muscle hematoma ? This is possibly iatrogenic following patient recent biopsy as well as his use of systemic anticoagulants. Patient Lovenox held on admission admitted to monitored bed for pain management with consultation placed to vascular surgery -07/03/2022 admitted to a monitored bed managed conservatively with consultation placed to vascular surgery Case discussed with Dr. Nunes plan is to continue with observation with repeat CT of the abdomen ordered for 07/05/2022. We will continue to hold patient's Lovenox till then. 2. IVC filter thrombus ? Patient was on Lovenox had to be held in view of above. Consult has been placed to Dr. Nunes with vascular surgery ? 07/03/2022 patient Lovenox on hold in view of above 3. Retroperitoneal adenopathy ? Patient underwent CT-guided lymph node biopsy on 06/23/2022. It was a nondiagnostic biopsy with no evidence of malignancy 4. DVT prophylaxis ? Patient was on Lovenox for an IVC thrombus. Lovenox held in view of above 5. Constipation ? Patient pain meds probably contributing patient started on stool softeners Time spent in the patient's overall evaluation,decision-making process, review of diagnostic data, adjustment of management, discussion with other providers, nursing nursing and ancillary staff involved in patient's care documentation, 35 Minutes Charges/Coding Visit Charges Inpatient E&M: 92783 Subs Hosp L2
[2022-07-03] MEDS: Polyethylene Glycol 3350 17 GM PACKET PO (13:55)
--- NOTE | 2022-07-03 15:07 | CASEMGMT ---
SILAS HUNG Discharge Planning Assessment: Face to Face with pt for initial transition planning/care coordination assessment. SILAS HUNG introduced self and role at [facility]. Pt voice understanding. Pt alert, oriented x4 and agreeable to participating in assessment. Pt provided permission to speak with visitors, son and DIL at bedside. Care providers, pharmacy, and demographics verified. PCP: Dr. Sarah Beth Szymanski Specialists: Dr. Nunes (vascular), Dr. Tolentino (onc) Preferred Pharmacy: [facility] Insurance: [place] for me w/pharmacy benefit. Pt noted deductible has not been met Living will/HPOA: yes/ yes-HPOA Gracy LNOK: Gracy Living arrangements: Pt lives with his spouse and son in a single story home with 3 steps to enter. Pt states he has been independent with all ADLs including household tasks. Family is available to assist if needed. Transportation: pt drives and family is able to drive if needed DME/HHC/SNF: pt denies any current DME needs or previous post-acute providers Plan: Pt states he plans to return home with the support of his family and denies any discharge needs at this time. Will continue to follow and assist with DC needs as identified. Janey Ibrahim RN CM
[2022-07-03 15:10] VITALS: BP 138/85; PULSE 94; RESP 18; TEMP 36.4; O2SAT 93
--- NOTE | 2022-07-03 18:50 | PN.SURG_ITS ---
Subjective Subjective Pain much improved today. No N/V. As ambulated some. Objective Data Objective Data Vital Signs: Vital Signs Temp Pulse Resp BP Pulse Ox O2 Del Method 97.6 F L 94 18 138/85 H 93 Room Air 07/03/22 15:10 07/03/22 15:10 07/03/22 15:10 07/03/22 15:10 07/03/22 15:10 07/03/22 15:10 Oxygen Delivery Method Room Air Weight: 185 lb 6.54 oz Body Mass Index (BMI) 28.1 Intake & Output: Intake and Output for Last 24 Hours 07/01/22 07/02/22 07/03/22 23:59 23:59 23:59 Intake Total 1360 / 1360 960 / 960 Output Total 625 / 625 Balance 735 / 735 960 / 960 Lab / Micro Data Result Diagrams: 07/03/22 07:04 07/03/22 07:04 Labs: Laboratory Results - last 24 hr 07/03/22 07:04: WBC 6.4, RBC 4.68, Hgb 14.1, Hct 41.6, MCV 88.9, MCH 30.1, MCHC 33.9, RDW Std Deviation 44.6 H, RDW Coeff of Lili 13.9, Plt Count 198, MPV 9.2, Immature Gran % (Auto) 0.200, Neut % (Auto) 77.8 H, Lymph % (Auto) 10.3 L, [place] % (Auto) 9.8, Eos % (Auto) 1.4, Baso % (Auto) 0.5, Absolute Neuts (auto) 5.0, Absolute Lymphs (auto) 0.66 L, Nucleated RBC % 0 07/03/22 07:04: Sodium 139, Potassium 4.0, Chloride 103, Carbon Dioxide 29.0, Anion Gap 7, BUN 13, Creatinine 0.93, Estim Creat Clear Calc 80.70, Est GFR (MDRD) Af Amer 106, Est GFR (MDRD) Non-Af 88, BUN/Creatinine Ratio 14.0, Glucose 109 H, Calcium 9.0 Physical Exam Const alert, oriented x3, no apparent distress and healthy appearing General Appearance: cooperative; Negative for combative or lethargic Orientation / Consciousness: awake Exam Limitations: no limitations HEENT Head and Scalp: normocephalic and atraumatic Eyes EOMs intact bilaterally General Eye: normal appearance of both eyes Neck full ROM General: trachea midline Resp normal respiratory effort and no use of accessory muscles Effort and Inspection: Negative for labored, stridor or audible wheezes Cardio regular rate and regular rhythm Peripheral Pulses: radial pulses present GI non-tender and non-distended; Negative for hepatosplenomegaly Back/Spine Cervical Spine: cervical ROM normal Extremity full ROM, normal capillary refill and no clubbing, cyanosis or edema Skin no rashes or lesions noted and no wounds Neuro oriented x3, CN's II-XII intact bilaterally, no focal motor deficits and no sensory deficits noted Psych thought process normal, cooperative, affect normal, speech normal and activity/motor behavior normal Assessment & Plan Assessment/Plan (1) Hematoma of left iliopsoas muscle: PLAN: -hgb stable -pain improved -plan repeat CT wednesday
[2022-07-03 21:37] VITALS: BP 156/88; PULSE 96; RESP 16; TEMP 36.9; O2SAT 96
[2022-07-04 03:17] VITALS: BP 145/90; PULSE 88; RESP 16; TEMP 36.6; O2SAT 99
[2022-07-04 07:28] VITALS: O2SAT 97
[2022-07-04 08:27] LABS: Absolute Lymphocyte Count 0.81 X10^3/uL (0.83-4.51); Absolute Neutrophil Count 5.2 X10^3/uL (2.0-7.7); Basophil# 0.04 X10^3/uL; Basophil% 0.6 % (0-1); Eosinophil# 0.14 X10^3/uL; Hematocrit 45.1 % (40-54); Hemoglobin 14.7 g/dL (13.0-16.5); Lymphocyte # 0.81 X10^3/ul (0.83-4.51); Lymphocyte % 11.7 % (19-41); Mean Corp Hgb Conc 32.6 g/dL (32-36); Mean Platelet Vol. 9.2 fl (6.2-12.0); Monocyte# 0.72 X10^3/uL; Monocyte% 10.4 % (0-10); NRBC Flagged by Analyzer 0 % (0-5); Neutrophil # 5.18 X10^3/uL (2.7-7.7); Platelet Count 226 K/mm3 (150-450); RBC Distribution Width CV 13.8 % (11.6-14.6); RBC Distribution Width SD 44.4 fl (35.1-43.9); Red Blood Count 5.07 M/mm3 (4.6-6.2); White Blood Count 6.9 K/mm3 (4.4-11.0)
[2022-07-04] MEDS: Acetaminophen 325 MG Tablet 650 MG PO ×2 (08:44→18:51)
[2022-07-04] MEDS: Magnesium Chloride 64 MG Delay Rel.Tablet 128 MG PO (08:44)
[2022-07-04] MEDS: Polyethylene Glycol 3350 17 GM PACKET PO (08:44)
[2022-07-04 08:50] VITALS: BP 125/86; PULSE 85; RESP 18; TEMP 36.5; O2SAT 97
[2022-07-04 08:50] LABS: Anion Gap 5 (5-15); BUN 13 mg/dL (7-18); BUN/Creat Ratio 13.8 RATIO (10-20); Calcium,Total 9.2 mg/dL (8.5-10.1); Chloride 103 mmol/L (98-107); Creatinine, Serum 0.94 mg/dL (0.70-1.30); EST Glomerular Filtration Rate 86 mL/min (>60); Est Glom Filt Rate - Afr Amer 105 mL/min (>60); Estimated Creatinine Clearance 79.84 ml/min; Glucose 104 mg/dL (74-106); Sodium Level 136 mmol/L (136-145)
--- NOTE | 2022-07-04 13:20 | PN.HOSP_ITS ---
Subjective Subjective Follow-up left iliopsoas muscle hematoma Patient seen pain control improving. Currently not on narcotics. Plan is for patient to undergo repeat CT of the abdomen and pelvis on 07/05/2022 to guide further management decision. Objective Data Objective Data Vital Signs: Vital Signs Temp Pulse Resp BP Pulse Ox O2 Del Method 97.7 F L 85 18 125/86 H 97 Room Air 07/04/22 08:50 07/04/22 08:50 07/04/22 08:50 07/04/22 08:50 07/04/22 08:50 07/04/22 08:50 Oxygen Delivery Method Room Air Weight: 84.1 kg Body Mass Index (BMI) 28.1 Intake & Output: Intake and Output for Last 24 Hours 07/02/22 07/03/22 07/04/22 23:59 23:59 23:59 Intake Total 1360 / 1360 960 / 960 360 / 360 Output Total 625 / 625 Balance 735 / 735 960 / 960 360 / 360 Lab / Micro Data Result Diagrams: 07/04/22 08:15 07/04/22 08:15 Labs: Laboratory Results - last 24 hr 07/04/22 08:15: WBC 6.9, RBC 5.07, Hgb 14.7, Hct 45.1, MCV 89.0, MCH 29.0, MCHC 32.6, RDW Std Deviation 44.4 H, RDW Coeff of Lili 13.8, Plt Count 226, MPV 9.2, Immature Gran % (Auto) 0.300, Neut % (Auto) 75.0 H, Lymph % (Auto) 11.7 L, [place] % (Auto) 10.4 H, Eos % (Auto) 2.0, Baso % (Auto) 0.6, Absolute Neuts (auto) 5.2, Absolute Lymphs (auto) 0.81 L, Nucleated RBC % 0 07/04/22 08:15: Sodium 136, Potassium 4.0, Chloride 103, Carbon Dioxide 28.0, Anion Gap 5, BUN 13, Creatinine 0.94, Estim Creat Clear Calc 79.84, Est GFR (MDRD) Af Amer 105, Est GFR (MDRD) Non-Af 86, BUN/Creatinine Ratio 13.8, Glucose 104, Calcium 9.2 Physical Exam Narrative GENERAL: cooperative HEENT: Atraumatic; normocephalic EYES; Anicteric, Normal Conjunctiva NECK; supple, normal thyroid, RESPIRATORY: Diminished to auscultation CARDIOVASCULAR: Regular S1 S2, GI: soft, normoactive bowel sounds, : No Renal angle tenderness; EXTREMITIES: No edema, no clubbing, MUSCULOSKELETAL: no muscle wasting NEURO: Awake; no lateralizing signs. 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 CT of the abdomen and pelvis obtained on admission demonstrated hematoma involving the left iliopsoas muscle 1. Left lower quadrant abdominal pain secondary to left iliopsoas muscle hemato ma ? This is possibly iatrogenic following patient recent biopsy as well as his use of systemic anticoagulants. Patient Lovenox held on admission admitted to monitored bed for pain management with consultation placed to vascular surgery -07/03/2022 admitted to a monitored bed managed conservatively with consultation placed to vascular surgery Case discussed with Dr. Nunes plan is to continue with observation with repeat CT of the abdomen ordered for 07/05/2022. We will continue to hold patient's Lovenox till then. -07/04/2022 Patient seen pain control improving. Currently not on narcotics. P mere is for patient to undergo repeat CT of the abdomen and pelvis on 07/05/2022 to guide further management decision. 2. IVC filter thrombus ? Patient was on Lovenox had to be held in view of above. Consult has been placed to Dr. Nunes with vascular surgery ? 07/03/2022 patient Lovenox on hold in view of above 3. Retroperitoneal adenopathy ? Patient underwent CT-guided lymph node biopsy on 06/23/2022. It was a nondiagnostic biopsy with no evidence of malignancy 4. DVT prophylaxis ? Patient was on Lovenox for an IVC thrombus. Lovenox held in view of above 5. Constipation ? Patient pain meds probably contributing patient started on stool softeners Time spent in the patient's overall evaluation,decision-making process, review of diagnostic data, adjustment of management, discussion with other providers, nursing nursing and ancillary staff involved in patient's care documentation, 35 Minutes Charges/Coding Visit Charges Inpatient E&M: 70954 Subs Hosp L2
[2022-07-04 14:50] VITALS: BP 117/79; PULSE 83; RESP 18; TEMP 36.9; O2SAT 94
[2022-07-04] MEDS: 0.9% Saline Lock 10 ML Syringe IV (16:03)
[2022-07-04 22:02] VITALS: BP 127/80; PULSE 85; RESP 18; TEMP 36.6; O2SAT 93
[2022-07-05 03:18] VITALS: BP 135/85; PULSE 87; RESP 18; TEMP 36.4; O2SAT 96
--- NOTE | 2022-07-05 05:55 | CT_ITS ---
INDICATION: 61-year-old male Left iliopsoas hematoma, IVC thrombosis EXAMINATION: CTA CHEST, ABDOMEN AND PELVIS WITH CONTRAST - TECHNIQUE: A CTA of the chest, abdomen, and pelvis is obtained with sagittal and coronal reconstructed MIP views. Three-dimensional surface rendered sequence of the thoracic and abdominal aorta was obtained. A radiation dose optimization technique was used for this scan. 100 mL mL of Isovue-370. Oral contrast: None. COMPARISON: CT abdomen and pelvis 07/02/2022., CT chest, abdomen and pelvis 06/05/2022. FINDINGS: CT CHEST: THORACIC AORTA: No atheromatous disease, no aneurysmal changes or dissection. ABDOMINAL AORTA: No aneurysm or dissection. No significant atheromatous disease. The iliac arteries are unremarkable. LUNGS: The lungs are well-expanded without acute or chronic changes. No effusions or pneumothorax. MEDIASTINUM: The thyroid gland is normal. Enlarged subcarinal lymph nodes measuring 2.4 x 1.8 cm and 2.6 x 1.7 cm. Several subcentimeter mediastinal lymph nodes. Enlarged left axillary lymph node measuring 1.8 x 1.3 cm not significantly changed. Multiple small left axillary lymph nodes 2 of which are borderline enlarged. HEART: Heart is normal size. No pericardial effusion. No definite coronary artery calcifications. CT ABDOMEN AND PELVIS: LIVER: The liver enhances homogeneously. Hepatic cysts unchanged. GALLBLADDER: The CBD is normal. Normal gallbladder. SPLEEN: Normal. PANCREAS: No masses or inflammation. ADRENAL GLANDS: Normal. KIDNEYS AND URETERS: The kidneys both enhance appropriately. There are normal size and shape. No hydronephrosis or nephrolithiasis. No renal masses or cysts. STOMACH: Normal. SMALL BOWEL: No abnormal distention of the small bowel. MESENTERY: No mesenteric inflammation. No ascites. COLON: No significant diverticulosis, masses or inflammation. Minimal sigmoid diverticulosis. APPENDIX: The appendix is visualized and normal. IVC: Thrombus in a dilated inferior vena cava unchanged. The segment of thrombus measures 9 cm in craniocaudad dimension and extends inferiorly to include the common iliac veins, not significantly changed in appearance since the prior study. RETROPERITONEUM: Left psoas muscle is enlarged decrease slightly in size since the prior study. There is a subtle central area of increased density within the left psoas muscle compatible with a hematoma. No extravasation of intravenous contrast is identified. Small amount of curvilinear soft tissue stranding is present in left paracolic gutter compatible with fluid unchanged. Again noted are multiple lymph nodes in the retroperitoneum and retrocrural and within the pelvis not definitely changed. The largest lymph node is anterior to the left psoas muscle measuring 3.0 x 2.5 cm. PELVIC STRUCTURES: Normal bladder. Prostate gland is not enlarged. SOFT TISSUES ABDOMEN: The anterior abdominal wall is normal. SOFT TISSUE CHEST: The extrathoracic soft tissues are normal. BONES: No fracture identified. Degenerative changes of the thoracic and lumbar spine. CT/CTA Chst, Abd, Pel W and/or WO IMPRESSION: No acute findings in the chest. Subcarinal and left axillary lymphadenopathy unchanged. No acute findings in the abdomen. 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 Decreasing size of left psoas hematoma. Recommend continued follow-up. Abdominal lymphadenopathy unchanged. Stable hepatic cysts. No acute findings in the pelvis. Stable pelvic lymphadenopathy. Electronically Signed: Hans Damon MD at 6:27 EST Reading Location ID and State: [id number] / , Service support ,
[2022-07-05 07:35] LABS: Absolute Lymphocyte Count 0.56 X10^3/uL (0.83-4.51); Absolute Neutrophil Count 4.3 X10^3/uL (2.0-7.7); Basophil# 0.03 X10^3/uL; Basophil% 0.5 % (0-1); Eosinophil# 0.15 X10^3/uL; Eosinophils% 2.7 % (0-5); Hematocrit 41.3 % (40-54); Hemoglobin 14.2 g/dL (13.0-16.5); Lymphocyte # 0.56 X10^3/ul (0.83-4.51); Mean Corp Hgb Conc 34.4 g/dL (32-36); Mean Corpuscular Hgb 30.1 pg (27.0-32.0); Mean Corpuscular Volume 87.7 fL (80-94); Mean Platelet Vol. 9.6 fl (6.2-12.0); Monocyte# 0.54 X10^3/uL; Monocyte% 9.7 % (0-10); NRBC Flagged by Analyzer 0 % (0-5); Neutrophil # 4.29 X10^3/uL (2.7-7.7); Neutrophil % 76.9 % (47-70); POSITIVE DIFFERENTIAL YES; Platelet Count 224 K/mm3 (150-450); RBC Distribution Width CV 13.7 % (11.6-14.6); RBC Distribution Width SD 43.9 fl (35.1-43.9); Red Blood Count 4.71 M/mm3 (4.6-6.2); White Blood Count 5.6 K/mm3 (4.4-11.0)
[2022-07-05 07:53] LABS: Differential Indicated SCAN CRITERIA MET
[2022-07-05 07:55] LABS: Anion Gap 6 (5-15); BUN 15 mg/dL (7-18); BUN/Creat Ratio 16.9 RATIO (10-20); Chloride 104 mmol/L (98-107); Creatinine, Serum 0.89 mg/dL (0.70-1.30); EST Glomerular Filtration Rate 93 mL/min (>60); Est Glom Filt Rate - Afr Amer 112 mL/min (>60); Estimated Creatinine Clearance 84.33 ml/min; Glucose 108 mg/dL (74-106); Potassium 4.2 mmol/L (3.5-5.1); Sodium Level 137 mmol/L (136-145)
[2022-07-05 07:56] VITALS: O2SAT 94
--- NOTE | 2022-07-05 08:02 | PN.HOSP_ITS ---
Subjective Subjective Follow-up left psoas muscle hematoma CT of the abdomen and pelvis obtained this a.m. did show No acute findings in the chest. Subcarinal and left axillary lymphadenopathy unchanged. No acute findings in the abdomen. 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 Decreasing size of left psoas hematoma. Recommend continued follow-up. ?Abdominal lymphadenopathy unchanged. Stable hepatic cysts. No acute findings in the pelvis. Stable pelvic lymphadenopathy. Objective Data Objective Data Vital Signs: Vital Signs Temp Pulse Resp BP Pulse Ox O2 Del Method 97.6 F L 87 18 135/85 H 96 Room Air 07/05/22 03:18 07/05/22 03:18 07/05/22 03:18 07/05/22 03:18 07/05/22 03:18 07/05/22 03:20 Oxygen Delivery Method Room Air Weight: 84.1 kg Body Mass Index (BMI) 28.1 Intake & Output: Intake and Output for Last 24 Hours 07/03/22 07/04/22 07/05/22 23:59 23:59 23:59 Intake Total 960 / 960 840 / 1200 360 / 360 Balance 960 / 960 840 / 1200 360 / 360 Lab / Micro Data Result Diagrams: 07/05/22 07:20 07/05/22 07:20 Labs: Laboratory Results - last 24 hr 07/04/22 08:15: WBC 6.9, RBC 5.07, Hgb 14.7, Hct 45.1, MCV 89.0, MCH 29.0, MCHC 32.6, RDW Std Deviation 44.4 H, RDW Coeff of Lili 13.8, Plt Count 226, MPV 9.2, Immature Gran % (Auto) 0.300, Neut % (Auto) 75.0 H, Lymph % (Auto) 11.7 L, [place] % (Auto) 10.4 H, Eos % (Auto) 2.0, Baso % (Auto) 0.6, Absolute Neuts (auto) 5.2, Absolute Lymphs (auto) 0.81 L, Nucleated RBC % 0 07/04/22 08:15: Sodium 136, Potassium 4.0, Chloride 103, Carbon Dioxide 28.0, Anion Gap 5, BUN 13, Creatinine 0.94, Estim Creat Clear Calc 79.84, Est GFR (MDRD) Af Amer 105, Est GFR (MDRD) Non-Af 86, BUN/Creatinine Ratio 13.8, Glucose 104, Calcium 9.2 07/05/22 07:20: WBC 5.6, RBC 4.71, Hgb 14.2, Hct 41.3, MCV 87.7, MCH 30.1, MCHC 34.4 D, RDW Std Deviation 43.9, RDW Coeff of Lili 13.7, Plt Count 224, MPV 9.6, Immature Gran % (Auto) 0.200, Neut % (Auto) 76.9 H, Lymph % (Auto) 10.0 L, [place] % (Auto) 9.7, Eos % (Auto) 2.7, Baso % (Auto) 0.5, Absolute Neuts (auto) 4.3, Absolute Lymphs (auto) 0.56 L, Nucleated RBC % 0 07/05/22 07:20: Sodium 137, Potassium 4.2, Chloride 104, Carbon Dioxide 27.0, Anion Gap 6, BUN 15, Creatinine 0.89, Estim Creat Clear Calc 84.33, Est GFR (MDRD) Af Amer 112, Est GFR (MDRD) Non-Af 93, BUN/Creatinine Ratio 16.9, Glucose 108 H, Calcium 9.0 Radiography Diagnostic Testing: Radiology Impression Chest/Abdomen/Pelvis CTA 07/05/22 05:55 IMPRESSION: No acute findings in the chest. Subcarinal and left axillary lymphadenopathy unchanged. No acute findings in the abdomen. 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 Decreasing size of left psoas hematoma. Recommend continued follow-up. Abdominal lymphadenopathy unchanged. Stable hepatic cysts. No acute findings in the pelvis. Stable pelvic lymphadenopathy. Electronically Signed: Hans Damon MD at 6:27 EST Reading Location ID and State: [id number] / , Service support , Physical Exam Narrative GENERAL: cooperative HEENT: Atraumatic; normocephalic EYES; Anicteric, Normal Conjunctiva NECK; supple, normal thyroid, RESPIRATORY: Diminished to auscultation CARDIOVASCULAR: Regular S1 S2, GI: soft, normoactive bowel sounds, : No Renal angle tenderness; EXTREMITIES: No edema, no clubbing, MUSCULOSKELETAL: no muscle wasting NEURO: Awake; no lateralizing signs. 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 CT of the abdomen and pelvis obtained on admission demonstrated hematoma involving the left iliopsoas muscle 1. Left lower quadrant abdominal pain secondary to left iliopsoas muscle hematoma ? This is possibly iatrogenic following patient recent biopsy as well as his use of systemic anticoagulants. Patient Lovenox held on admission admitted to monitored bed for pain management with consultation placed to vascular surgery -07/03/2022 admitted to a monitored bed managed conservatively with consultation placed to vascular surgery Case discussed with Dr. Nunes plan is to continue with observation with repeat CT of the abdomen ordered for 07/05/2022. We will continue to hold patient's Lovenox till then. -07/04/2022 Patient seen pain control improving. Currently not on narcotics. Plan is for patient to undergo repeat CT of the abdomen and pelvis on 07/05/2022 to guide further management decision. -07/05/2022; CT of the abdomen and pelvis obtained this a.m. did show No acute findings in the chest. Subcarinal and left axillary lymphadenopathy unchanged. No acute findings in the abdomen. 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 Decreasing size of left psoas hematoma. Recommend continued follow-up. ?Abdominal lymphadenopathy unchanged. Stable hepatic cysts. No acute findings in the pelvis. Stable pelvic lymphadenopathy. Result discussed with Dr. Nunes with vascular surgery. Patient will be discharged home. Lovenox to be resumed on 07/07/2022. Patient to follow-up with Dr. Nunes in 3 to 5 days 2. IVC filter thrombus ? Patient was on Lovenox had to be held in view of above. Consult has been p laced to Dr. Nunes with vascular surgery ? 07/03/2022 patient Lovenox on hold in view of above 3. Retroperitoneal adenopathy ? Patient underwent CT-guided lymph node biopsy on 06/23/2022. It was a no ndiagnostic biopsy with no evidence of malignancy 4. DVT prophylaxis ? Patient was on Lovenox for an IVC thrombus. Lovenox held in view of above 5. Constipation ? Patient pain meds probably contributing patient started on stool softeners Time spent in the patient's overall evaluation,decision-making process, review of diagnostic data, adjustment of management, discussion with other providers, nursing nursing and ancillary staff involved in patient's care documentation, 36 Minutes Charges/Coding Visit Charges Inpatient E&M: 83174 Subs Hosp L2
--- NOTE | 2022-07-05 09:41 | PN.SURG_ITS ---
Subjective Subjective Feeling much better. No CP/SOB, flank pain resolving. Objective Data Objective Data Vital Signs: Vital Signs Temp Pulse Resp BP Pulse Ox O2 Del Method 97.6 F L 87 18 135/85 H 94 Room Air 07/05/22 03:18 07/05/22 03:18 07/05/22 03:18 07/05/22 03:18 07/05/22 07:56 07/05/22 07:56 Oxygen Delivery Method Room Air Weight: 185 lb 6.54 oz Body Mass Index (BMI) 28.1 Intake & Output: Intake and Output for Last 24 Hours 07/03/22 07/04/22 07/05/22 23:59 23:59 23:59 Intake Total 960 / 960 840 / 1200 360 / 360 Balance 960 / 960 840 / 1200 360 / 360 Lab / Micro Data Result Diagrams: 07/05/22 07:20 07/05/22 07:20 Labs: Laboratory Results - last 24 hr 07/05/22 07:20: WBC 5.6, RBC 4.71, Hgb 14.2, Hct 41.3, MCV 87.7, MCH 30.1, MCHC 34.4 D, RDW Std Deviation 43.9, RDW Coeff of Lili 13.7, Plt Count 224, MPV 9.6, Immature Gran % (Auto) 0.200, Neut % (Auto) 76.9 H, Lymph % (Auto) 10.0 L, [place] % (Auto) 9.7, Eos % (Auto) 2.7, Baso % (Auto) 0.5, Absolute Neuts (auto) 4.3, Absolute Lymphs (auto) 0.56 L, Nucleated RBC % 0 07/05/22 07:20: Sodium 137, Potassium 4.2, Chloride 104, Carbon Dioxide 27.0, Anion Gap 6, BUN 15, Creatinine 0.89, Estim Creat Clear Calc 84.33, Est GFR (MDRD) Af Amer 112, Est GFR (MDRD) Non-Af 93, BUN/Creatinine Ratio 16.9, Glucose 108 H, Calcium 9.0 Radiography Diagnostic Testing: Radiology Impression Chest/Abdomen/Pelvis CTA 07/05/22 05:55 IMPRESSION: No acute findings in the chest. Subcarinal and left axillary lymphadenopathy unchanged. No acute findings in the abdomen. 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 Decreasing size of left psoas hematoma. Recommend continued follow-up. Abdominal lymphadenopathy unchanged. Stable hepatic cysts. No acute findings in the pelvis. Stable pelvic lymphadenopathy. Electronically Signed: Hans Damon MD at 6:27 EST Reading Location ID and State: [id number] / , Service support , Physical Exam Const alert, oriented x3, no apparent distress and healthy appearing General Appearance: cooperative; Negative for combative or lethargic Orientation / Consciousness: awake Exam Limitations: no limitations HEENT Head and Scalp: normocephalic and atraumatic Eyes EOMs intact bilaterally General Eye: normal appearance of both eyes Neck full ROM General: trachea midline Resp normal respiratory effort and no use of accessory muscles Effort and Inspection: Negative for labored, stridor or audible wheezes Cardio regular rate and regular rhythm Back/Spine Cervical Spine: cervical ROM normal Neuro oriented x3, CN's II-XII intact bilaterally, no focal motor deficits and no sensory deficits noted Psych thought process normal, cooperative, affect normal, speech normal and activity/motor behavior normal Assessment & Plan Assessment/Plan (1) Hematoma of left iliopsoas muscle: PLAN: -CT images reviewed, decrease in hematoma size, IVC essentially unchanged -hgb stable -will resume lovenox wednesday -ok to dc Charges/Coding Visit Charges Inpatient E&M: 97625 Subs Hosp L2
[2022-07-05 09:44] LABS: Differential Comment SCANNED
[2022-07-05 09:45] VITALS: BP 122/83; PULSE 90; RESP 18; TEMP 36.9; O2SAT 96
[2022-07-05] MEDS: Magnesium Chloride 64 MG Delay Rel.Tablet 128 MG PO (09:46)
--- NOTE | 2022-07-05 11:16 | DS.PCM_ITS ---
Providers Date of Admission: 07/02/22 Date of Discharge: 07/05/22 Primary Care Physician: Dr. 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 CT of the abdomen and pelvis obtained on admission demonstrated hematoma involving the left iliopsoas muscle 1. Left lower quadrant abdominal pain secondary to left iliopsoas muscle hematoma ? This is possibly iatrogenic following patient recent biopsy as well as his use of systemic anticoagulants. Patient Lovenox held on admission admitted to monitored bed for pain management with consultation placed to vascular surgery -07/03/2022 admitted to a monitored bed managed conservatively with consultation placed to vascular surgery Case discussed with Dr. Nunes plan is to continue with observation with repeat CT of the abdomen ordered for 07/05/2022. We will continue to hold patient's Lovenox till then. -07/04/2022 Patient seen pain control improving. Currently not on narcotics. Plan is for patient to undergo repeat CT of the abdomen and pelvis on 07/05/2022 to guide further management decision. -07/05/2022; CT of the abdomen and pelvis obtained this a.m. did show No acute findings in the chest. Subcarinal and left axillary lymphadenopathy unchanged. No acute findings in the abdomen. 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 Decreasing size of left psoas hematoma. Recommend continued follow-up. ?Abdominal lymphadenopathy unchanged. Stable hepatic cysts. No acute findings in the pelvis. Stable pelvic lymphadenopathy. Result discussed with Dr. Nunes with vascular surgery. Patient will be discharged home. Lovenox to be resumed on 07/07/2022. Patient to follow-up with Dr. Nunes in 3 to 5 days 2. IVC filter thrombus ? Patient was on Lovenox had to be held in view of above. Consult has been placed to Dr. Nunes with vascular surgery ? 07/03/2022 patient Lovenox on hold in view of above 3. Retroperitoneal adenopathy ? Patient underwent CT-guided lymph node biopsy on 06/23/2022. It was a nondiagnostic biopsy with no evidence of malignancy 4. DVT prophylaxis ? Patient was on Lovenox for an IVC thrombus. Lovenox held in view of above 5. Constipation ? Patient pain meds probably contributing patient started on stool softeners Time spent in the patient's overall evaluation,decision-making process, review of diagnostic data, adjustment of management, discussion with other providers, nursing nursing and ancillary staff involved in patient's care documentation, 38 Minutes Medications at Discharge Home Medications garlic 300 mg capsule 300 mg PO DAILY 07/10/20 magnesium oxide 500 mg capsule 500 mg PO DAILY 07/10/20 multivitamin with iron (Daily Multiple Vitamins with Iron tablet) 1 tab PO DAILY 07/10/20 saw palm 160 mg-vit E 100 unit-selen 100 [id number]-uiaebk-pygeum tablet ([employer]) 1 tab PO DAILY 06/02/22 enoxaparin 150 mg/mL subcutaneous syringe (Lovenox) 129 mg (0.86 mL) subcut KAN Y 4 weeks #24.08 mL 07/05/22 Hospital Course Summary of Care Provided Minutes Spent on Discharge: 38 Physical Exam Narrative GENERAL: cooperative HEENT: Atraumatic; normocephalic EYES; Anicteric, Normal Conjunctiva NECK; supple, normal thyroid, RESPIRATORY: Diminished to auscultation CARDIOVASCULAR: Regular S1 S2, GI: soft, normoactive bowel sounds, : No Renal angle tenderness; EXTREMITIES: No edema, no clubbing, MUSCULOSKELETAL: no muscle wasting NEURO: Awake; no lateralizing signs. SKIN: No Rash PSYCH; Flat affect Weight / BMI Weight Weight: 84.1 kg Body Mass Index (BMI) 28.1 ABG / Lab / Microbiology Data Result Diagrams: 07/05/22 07:20 07/05/22 07:20 Laboratory: Laboratory Results - last 24 hr 07/05/22 07:20: WBC 5.6, RBC 4.71, Hgb 14.2, Hct 41.3, MCV 87.7, MCH 30.1, MCHC 34.4 D, RDW Std Deviation 43.9, RDW Coeff of Lili 13.7, Plt Count 224, MPV 9.6, Immature Gran % (Auto) 0.200, Neut % (Auto) 76.9 H, Lymph % (Auto) 10.0 L, [place] % (Auto) 9.7, Eos % (Auto) 2.7, Baso % (Auto) 0.5, Absolute Neuts (auto) 4.3, Absolute Lymphs (auto) 0.56 L, Nucleated RBC % 0, Differential Comment SCANNED 07/05/22 07:20: Sodium 137, Potassium 4.2, Chloride 104, Carbon Dioxide 27.0, Anion Gap 6, BUN 15, Creatinine 0.89, Estim Creat Clear Calc 84.33, Est GFR (MDRD) Af Amer 112, Est GFR (MDRD) Non-Af 93, BUN/Creatinine Ratio 16.9, Glucose 108 H, Calcium 9.0 Radiography Diagnostic Testing: Radiology Impression Chest/Abdomen/Pelvis CTA 07/05/22 05:55 IMPRESSION: No acute findings in the chest. Subcarinal and left axillary lymphadenopathy unchanged. No acute findings in the abdomen. 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 Decreasing size of left psoas hematoma. Recommend continued follow-up. Abdominal lymphadenopathy unchanged. Stable hepatic cysts. No acute findings in the pelvis. Stable pelvic lymphadenopathy. Electronically Signed: Hans Damon MD at 6:27 EST Reading Location ID and State: [id number] / , Service support , D/C Instructions Discharge Diet: No restrictions Discharge Activity: Return to Normal Activity Call your doctor if you observe: Fever of 101 or Higher, Shortness of breath, Dizziness, Fainting spells, Chest pain, Increased palpitations (irregular heartbeat) and Calf discomfort Meaningful Use Info Meaningful Use Diagnoses (Choose all that apply): None applicable Discharge Plan Admission Admit Date/Time: 07/02/22 08:12 Attending Provider: Tra Cosme Primary Care Provider: Karsten Szymanski Consulting Providers: Karsten Nunes Discharge Orders/Prescriptions Prescriptions: Continued multivitamin with iron [Daily Multiple Vitamins/Iron] Tablet 1 tab PO DAILY garlic 300 mg capsule 300 mg capsule 300 mg PO DAILY magnesium oxide 500 mg capsule 500 mg PO DAILY Prostate Health 160-100-100 mg-unit-mcg tablet 1 tab PO DAILY enoxaparin [Lovenox] 150 mg/mL syringe 129 mg subcut DAILY 28 Days Qty: 24.08 0RF Rx Instructions: Start Lovenox on 07/07/2022 Referrals / Follow Up: Karsten Szymanski MD [Primary Care Provider] - In 1 Week Karsten Nunes MD [Med Staff - Active Staff] - Within 1 Week (Within 3 to 5 days) Disposition Disposition (needs filled in before D/C Order can be placed): Home, Self Care Charges/Coding Visit Charges Inpatient E&M: 75431 Disch Hosp >30min
[2022-07-05 12:23] VITALS: BP 122/83; PULSE 90; RESP 18; TEMP 36.9; O2SAT 96
== END 2022-07-05 13:07 | disposition home or self-care (01) | DRG 919 ==
LOC: ED 08:26 → PCU 08:29
PROVIDERS: Admitting Provider Internal Medicine; Emergency Provider Emergency Medicine; PCP Family Medicine; Visit Provider Internal Medicine
DX: M96.840 Postprocedural hematoma of a musculoskeletal structure following a musculoskeletal system procedure (principal); I82.220 Acute embolism and thrombosis of inferior vena cava; K76.89 Other specified diseases of liver; K59.00 Constipation, unspecified; Z79.01 Long term (current) use of anticoagulants; Y84.8 Other medical procedures as the cause of abnormal reaction of the patient, or of later complication, without mention of misadventure at the time of the procedure
CPT/HCPCS: 36415; 71275; 74174; 74177; 80048; 81001; 85025; 99283; J7030; Q9967; A4216; J2405

== ENCOUNTER → 2022-07-14 | Outpatient (CLI) | payer OTHER, SELFPAY ==
--- NOTE | 2022-07-14 07:42 | VDLE_ITS ---
Reason For Study: leg pain RIGHT LEFT GSV is normal. GSV is normal. CFV is compressible, spontaneous, phasic, CFV is compressible, spontaneous, phasic, competent and demonstrates normal competent, and demonstrates normal augmentation. augmentation. FV is compressible, spontaneous, phasic, FV is compressible, spontaneous, phasic, competent and demonstrates normal competent and demonstrates normal augmentation. augmentation. POP V is compressible, spontaneous, phasic, POP V is compressible, spontaneous, phasic, competent and demonstrates normal competent and demonstrates normal augmentation. augmentation. T/P Trunk is compressible. T/P Trunk is compressible. PTV is compressible. PTV is compressible. RT PerV is compressible. LT PerV is compressible. Procedure This is a venous duplex using B-mode, color flow and spectral Doppler. Exam performed in department. The exam was diagnostic. A preliminary report was called and/or faxed to Dr. Skaggs office. VL/Venous Duplex US - Raj Extrem Interpretation Summary Deep veins of the bilateral lower extremities are patent and compressible segme ntally. There is no evidence of bilateral lower extremity deep vein thrombosis. The bilateral great saphenous veins appear patent and compressible segmentally. Ordering Physician: Karsten Nunes Performed By: Fili Cho RVT
== END | disposition home or self-care (01) ==
LOC: CVS 07:42
PROVIDERS: PCP Family Medicine; Visit Provider Surgery Trauma Surgery
DX: I82.220 Acute embolism and thrombosis of inferior vena cava (principal); M79.604 Pain in right leg; M79.605 Pain in left leg
CPT/HCPCS: 93970

== ENCOUNTER → 2022-07-15 | Outpatient (CLI) | payer OTHER, SELFPAY ==
--- NOTE | 2022-07-15 13:15 | US_ITS ---
STUDY: THYROID ULTRASOUND REASON FOR EXAM: Male, 61 years old. ABN IMAGE OF THY TECHNIQUE: Ultrasound evaluation of the thyroid was performed with real-time and static ricardo-scale imaging. COMPARISON: None. FINDINGS: RIGHT LOBE: The right lobe of the thyroid gland is enlarged and measures 5.2 cm x 2.6 x 2.4 cm. There is a heterogeneous echotexture. Multiple small hypoechoic/cystic nodules are seen throughout the right lobe. Lateral to the right thyroid lobe, there is a complex mass measuring 2.3 cm x 0.9 cm x 0.6 cm. This may represent findings of abnormal lymph node. LEFT LOBE: The left lobe of the thyroid gland measures 4.4 cm x 1.8 sono by 1.9 cm. There is a heterogeneous echotexture. Multiple hypoechoic solid and cystic nodules are seen. The largest is in the upper pole and measures 1.7 cm x 1.3 cm x 1.1 cm. ISTHMUS: The isthmus measures 7 mm. US/Thyroid IMPRESSION: Enlargement of the right lobe of the thyroid gland with multiple hypoechoic and cystic nodules within it. Lateral to the right lobe of the thyroid gland, there is a 2.3 cm x 0.9 cm x 0.6 cm complex hypoechoic mass suggestive of abnormal lymph node. Dominant solid/cystic nodule in the upper pole of the left lobe measuring 1.7 cm x 1.3 cm x 1.1 cm. Electronically Signed: Raciel Garza MD at 15:43 EST ,
== END | disposition home or self-care (01) ==
LOC: US 13:14
PROVIDERS: PCP Family Medicine
DX: E04.2 Nontoxic multinodular goiter (principal); R93.89 Abnormal findings on diagnostic imaging of other specified body structures
CPT/HCPCS: 76536

== ENCOUNTER 2022-07-20 15:29 | Inpatient (IN) | payer OTHER, SELFPAY ==
[2022-07-20 15:09] VITALS: BMI 28.4
[2022-07-20 15:22] VITALS: BP 134/89; PULSE 89; RESP 20; TEMP 36.8; O2SAT 96
--- NOTE | 2022-07-20 16:04 | HP.PCM_ITS ---
HPI - General General Date of Admission: 07/20/22 Date of Service: 07/20/22 Chief Complaint: IVC thrombus HPI Narrative KYLE VAZQUEZ, is a 61 M who is admitted for heparin bridge in preparation for scheduled venogram with thrombectomy on 07/21/2022 to address IVC thrombus. Last dose of lovenox was last night, he is on once daily regimen. Patient was incidentally diagnosed with IVC thrombus on 06/[address] scan. He was started on lovenox on 06/05. The CT scan had been ordered to investigate lymphadenopathy noted on previous MRI and patient is currently being worked up for malignancy. At first presentation to our office, intervention was delayed secondary to his malignancy work-up. He had a lymph node biopsy on 06/23/22 which was complicated by hematoma contained in psoas muscle/fascia. This biopsy was inconclusive and he is scheduled for another biopsy on 08/03/22. His case was discussed with his oncology team and agreed that it was reasonable to proceed with intervention for IVC thrombus, especially given he will have episodes of paused anticoagulation as he continues to be worked up by oncology. Today, patient continues to be agreeable to proceeding with intervention. He denies F/C, N/V, increased swelling of BLE, increased/new pain, CP, SOB. No complaints today. [facility] Medical History Arthritis Axillary lymphadenopathy Back pain Edema History of edema IVC thrombosis Leg cramps Non-smoker Numbness and tingling of both feet Numbness and tingling of both legs Radiculopathy due to disorder of intervertebral disc of lumbar spine Restless legs Shortness of breath on exertion Synovial cyst of lumbar spine Home Medications garlic 300 mg capsule 300 mg PO DAILY supplement 07/10/20 [History Last Taken Unknown] magnesium oxide 500 mg capsule 500 mg PO DAILY supplement 07/10/20 [History Last Taken Unknown] multivitamin with iron (Daily Multiple Vitamins with Iron tablet) 1 tab PO DAILY vitamin 07/10/20 [History Last Taken Unknown] saw palm 160 mg-vit E 100 unit-selen 100 boo-rnnx-dvbjme-pygeum tablet (dilitronics) 1 tab PO DAILY supplement 06/02/22 [History Last Taken Unknown] Juice Plus Gummies 3 tab PO/SL DAILY SUPPLEMENT 07/17/22 [History Last Taken Unknown] enoxaparin 150 mg/mL subcutaneous syringe (Lovenox) 129 mg subcut DAILY BLOOD THINNER 07/17/22 [History Last Taken Unknown] Allergy/AdvReac Type Severity Reaction Status Date / Time amoxicillin Allergy Rash Verified 07/17/22 08:21 Family History Mother Arthritis Father Heart disease Surgical History History of tonsillectomy Hx of colonoscopy [place] teeth removed Social History household members: spouse and children housing: house Smoking Status: Never smoker alcohol intake: current alcohol intake frequency: holidays/special occasions only what type of physical activity do you participate in: walking frequency: daily do you feel safe at home: Yes ROS Constitutional Constitutional: Denies chills, fever(s), frequent falls, lethargy or weakness Eyes Eyes: Reports systems reviewed and no addt'l complaints, except as documented ENT HEENT: Reports systems reviewed and no addt'l complaints, except as documented Cardiovascular Cardiovascular: Reports leg edema; Denies chest pain, cold extremities, cyanosis, diaphoresis, dyspnea, leg ulcers, lightheadedness, nausea, numbness in extremities, orthostatic symptoms or syncope Respiratory/Chest Respiratory/Chest: Denies cough, dyspnea, dyspnea on exertion, hemoptysis or portable oxygen @ home Gastrointestinal Gastrointestinal: Reports systems reviewed and no addt'l complaints, except as documented Genitourinary Genitourinary: Reports systems reviewed and no addt'l complaints, except as documented Musculoskeletal Musculoskeletal: Reports systems reviewed and no addt'l complaints, except as documented Integumentary Integumentary: Reports other Details: ; Denies erythema, non-healing lesions, rash or wounds Neurologic Neurologic: Reports systems reviewed and no addt'l complaints, except as documented Psychiatric Psychiatric: Reports systems reviewed and no addt'l complaints, except as documented Endocrine Endocrinology: Reports systems reviewed and no addt'l complaints, except as documented Hematologic/Lymphatic Hematologic/Lymphatic: Reports lymphadenopathy; Denies easy bleeding or easy bruising Allergic/Immunologic Allergic/Immunologic: Reports systems reviewed and no addt'l complaints, except as documented Vital Signs Vital Signs Vital Signs: 07/20/22 15:22 Temperature 98.3 F Temperature Source Temporal Pulse Rate 89 Respiratory Rate 20 H Blood Pressure 134/89 H Blood Pressure Mean 104 Blood Pressure Source Monitor Blood Pressure Position Semi-Fowlers Blood Pressure Location Left Arm Pulse Ox 96 Oxygen Delivery Method Room Air Weight Weight: 186 lb 15.232 oz Body Mass Index (BMI) 28.4 Physical Exam Const alert, oriented x3, no apparent distress and healthy appearing General Appearance: cooperative and comfortable; Negative for combative or lethargic Orientation / Consciousness: awake Exam Limitations: no limitations HEENT hearing grossly normal bilaterally, external ears normal and external nose normal Head and Scalp: normocephalic and atraumatic Eyes EOMs intact bilaterally General Eye: normal appearance of both eyes Neck full ROM General: normal visual inspection and trachea midline Resp normal respiratory effort, no use of accessory muscles and clear to auscultation bilaterally Effort and Inspection: able to speak in complete sentences and symmetric chest movement; Negative for respiratory distress, labored, stridor, actively coughing or audible wheezes Cardio regular rate and regular rhythm GI normal to inspection, nondistended, normoactive bowel sounds, soft to palpation and non-tender Back/Spine Cervical Spine: cervical ROM normal Extremity full ROM Peripheral Pulses: Yes pulses 2+ throughout Skin no rashes or lesions noted and no wounds Trauma: no lacerations or abrasions Neuro oriented x3, CN's II-XII intact bilaterally, moves all extremities, no focal motor deficits, no sensory deficits noted and gait normal Speech: speech normal Psych mental status grossly normal, thought process normal, cooperative, affect normal, speech normal and activity/motor behavior normal Results Lab / Micro Data Result Diagrams: 07/20/22 16:26 07/20/22 16:26 Assessment & Plan Assessment/Plan (1) IVC thrombosis: PLAN: All patient's questions and concerns were addressed. Patient remains agreeable to proceed with procedure tomorrow. He is scheduled for venogram with thrombectomy at 0730. Admitted for heparin bridging, will start full dose heparin continuous infusion per protocol. No need to hold prior to procedure, will stop once down in catheterization laboratory technician. NPO after midnight. Charges/Coding Visit Charges Inpatient E&M: 43264 Init Hosp L1
--- NOTE | 2022-07-20 16:09 | NURSING ---
Emergency Documentation in effect, per charge nurse Becka ROSEN
[2022-07-20 16:36] LABS: Hematocrit 44.5 % (40-54); Hemoglobin 14.3 g/dL (13.0-16.5); Mean Corp Hgb Conc 32.1 g/dL (32-36); Mean Corpuscular Hgb 28.8 pg (27.0-32.0); Mean Corpuscular Volume 89.5 fL (80-94); Mean Platelet Vol. 9.3 fl (6.2-12.0); Platelet Count 209 K/mm3 (150-450); RBC Distribution Width CV 14.3 % (11.6-14.6); RBC Distribution Width SD 46.5 fl (35.1-43.9); Red Blood Count 4.97 M/mm3 (4.6-6.2); White Blood Count 5.3 K/mm3 (4.4-11.0)
[2022-07-20 16:43] LABS: Partial Thromboplast Time 29.9 Seconds (24.1-36.2)
[2022-07-20 16:48] LABS: BUN 19 mg/dL (7-18); Creatinine, Serum 0.98 mg/dL (0.70-1.30); Estimated Creatinine Clearance 76.58 ml/min; Glucose 121 mg/dL (74-106)
[2022-07-20 16:49] LABS: Anion Gap 6 (5-15); BUN/Creat Ratio 19.5 RATIO (10-20); Calcium,Total 9.5 mg/dL (8.5-10.1); Chloride 105 mmol/L (98-107); EST Glomerular Filtration Rate 83 mL/min (>60); Est Glom Filt Rate - Afr Amer 100 mL/min (>60); Sodium Level 139 mmol/L (136-145)
[2022-07-20] MEDS: HEPARIN/D5w 25,000 UNITS 25,000 UNITS/250 ML IV.SOLN. 12 UNITS CONT INF (16:58)
[2022-07-20] MEDS: 0.9% Saline Lock 10 ML Syringe IV (16:59)
[2022-07-20 23:02] VITALS: BP 105/66; PULSE 79; RESP 18; TEMP 36.7; O2SAT 95
[2022-07-20 23:42] LABS: Partial Thromboplast Time 51.5 Seconds (24.1-36.2)
[2022-07-21] VITALS (15 sets, daily range): BP systolic 105–142; BP diastolic 63–88; PULSE 73–109; RESP 16–20; TEMP 36.4–38.1; O2SAT 93–100
--- NOTE | 2022-07-21 | IMM_PTH ---
PATIENT: KYLE VAZQUEZ LOC: [facility] U#:[id number] AGE/SX: 61/M ROOM: [facility] RE07/20/[address]: Dr. Karsten Nunes MD : 1960 BED: 1 DIS: 07/22/2022 SPEC #: [id number] RECD: 07/23/22 14:33 STATUS: SOUMilad REQ #: [id number] GEOVANNA: 07/21/22 00:[address]: Karsten Nunes DEPT: IMMUNOHISTOCHEMISTRY RECD BY: Zaida Sylvester ENTERED: 07/23/22 14:36 SP TYPE: IMMUNO OTHR DR: Dr. Karsten Szymanski MD Tissues: Vena cava, NOS Procedures: BCL-2 (add) BCL-6 (add) CD10 (add) CD138 (add) CD15 (add) CD20 (add) CD23 (add) CD3 (add) CD30 (add) CD43 (add) CD45 (add) CD5 (add) CD79A (add) CYCLIN (add) KAPPA (add) KI-67 (add) LAMBDA (add) MPO (add) P53 (add) Vimentin (add) MUM1 (add) C-MYC (add) Pankeratin (initial) PHYSICIAN & [place] [id number] SPECIMEN INFORMATION: Tissue Source: Tissue from inferior vena cava Clinical Info: Thrombectomy Specimen Number: [id number] #1 CPT code: 98111, 62715 x22 METHODOLOGY: Deparaffinized sections of prefer/formalin-fixed tissue or PAP/DQ stained slides are incubated with monoclonal/polyclonal antibodies/oligonucleotide probes. Localization is made via biotin free immunoperoxidase method. Appropriate controls are performed and reacted as expected. Results on target cell population are indicated in the following table: RESULTS: ANTIBODY / CLONE RESULT Block 1 AE1-3 (AE1/AE3/PCK26) negative CD3 (PS1) negative CD5 (SP10) negative CD10 (56C6) positive CD15 (MMA) negative CD20 (L26) positive CD23 (1B12) negative CD30 (Elijah-H2) negative CD43 (L60) negative CD45 (RP2/18) positive CD79a (11E3) positive CD138 (B-A38) negative BCL-2 (bcl-2/100/D5) positive BCL-6 (GD852T/A8) positive [place] D1/BCL-1 (SP4) negative MUM1 (MRQ-43) negative C-MYC (Y69) negative MPO (polyclonal) negative Vimentin (V9) positive [place] (polyclonal) negative Lambda (polyclonal) negative P53 (DO-7) negative Ki-67 (30-9) positive, 80% These tests were developed and their performance characteristics determined by [facility]. They may not have been cleared or approved by the U.S. Food and Drug Administration. The FDA has determined that such clearance or approval is not necessary. The above immunohistochemical/dualISH markers are ordered and reviewed by the Pathologist. 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 AM:colt 07/24/2022 Case has been reviewed in consultation with Dr. Barger who concurs with the above diagnosis. IDC:SJ
--- NOTE | 2022-07-21 | VE_PTH ---
PATIENT: KYLE VAZQUEZ LOC: [facility] U#:[id number] AGE/SX: 61/M ROOM: [facility] RE07/20/[address]: Dr. Karsten Nunes MD : 1960 BED: 1 DIS: 07/22/2022 SPEC #: [id number] RECD: 07/21/22 15:00 STATUS: JHONNY ANDERSON #: [id number] GEOVANNA: 07/21/22 00:[address]: Karsten Nunes DEPT: SURGICAL PATHOLOGY RECD BY: Lynne Amezcua ENTERED: 07/22/22 13:40 SP TYPE: VEIN(S) OTHR DR: Dr. Karsten Szymanski MD Tissues: Vein, NOS Procedures: Surgery Specimen Level IV HEADER OPERATION: Venogram of inferior vena cava PRE-OP DIAGNOSIS: Thrombectomy TISSUE SUBMITTED: Tissue from inferior vena cava MICROSCOPIC DIAGNOSIS Tissue from inferior vena cava, thrombectomy: B-cell lymphoma of center cell origin, grade 3/3. Fragments of organizing thrombus. See comment. AM:colt 07/23/2022 COMMENT The specimen contains organizing fibrinoid clot-like material consistent with thrombus. Also present are clusters of packed malignant lymphoid cells consistent with lymphoma. These cells have a medium to large cell morphology with irregular nuclear membranes and prominent nuclei. Immunohistochemistry ([id number]) supports the above diagnosis. Case has been reviewed in consultation with Dr. Barger who concurs with the above diagnosis. IDC:SKYLER MICROSCOPIC DESCRIPTION Slides are reviewed. GROSS DESCRIPTION Received in fixative is one container labeled with the patient's name and designated inferior vena cava tissue. The specimen consists of multiple fragments of hemorrhagic soft tissue that in aggregate measure 3.5 x 2 x 1 cm. The largest piece measures 1.5 cm in greatest dimension. This piece is serially sectioned. The entire specimen is submitted in two cassettes. / SKYLER:colt 07/22/2022 TC:0 CPT: 91225
[2022-07-21] MEDS: Heparin Injection (Vial) 5,000 UNIT/ML VIAL IV (00:32)
--- NOTE | 2022-07-21 05:55 | EKG12_ITS ---
Test Reason : AM EKG Blood Pressure : / mmHG Vent. Rate : 079 BPM Atrial Rate : 079 BPM P-R Int : 168 ms QRS Dur : 086 ms QT Int : 380 ms P-R-T Axes : 065 031 046 degrees QTc Int : 435 ms Normal sinus rhythm Normal ECG When compared with ECG of 06-JUN-2022 11:41, No significant change was found Confirmed by CRISTINA WHITE, YAMIL ([id number]), assignment editor SERVANDO SHIN ([id number]) on 07/24/2022 9:06:34 AM Referred By: Confirmed By:BURT EVANS MD
[2022-07-21 06:21] LABS: Absolute Lymphocyte Count 0.72 X10^3/uL (0.83-4.51); Absolute Neutrophil Count 3.8 X10^3/uL (2.0-7.7); Basophil# 0.03 X10^3/uL; Basophil% 0.6 % (0-1); Eosinophil# 0.13 X10^3/uL; Eosinophils% 2.5 % (0-5); Hematocrit 41.9 % (40-54); Lymphocyte # 0.72 X10^3/ul (0.83-4.51); Lymphocyte % 13.8 % (19-41); Mean Corp Hgb Conc 33.4 g/dL (32-36); Mean Corpuscular Hgb 29.1 pg (27.0-32.0); Mean Corpuscular Volume 87.1 fL (80-94); Mean Platelet Vol. 9.4 fl (6.2-12.0); Monocyte# 0.55 X10^3/uL; Monocyte% 10.5 % (0-10); NRBC Flagged by Analyzer 0 % (0-5); Neutrophil # 3.78 X10^3/uL (2.7-7.7); Neutrophil % 72.4 % (47-70); Platelet Count 188 K/mm3 (150-450); RBC Distribution Width CV 14.3 % (11.6-14.6); RBC Distribution Width SD 46.1 fl (35.1-43.9); Red Blood Count 4.81 M/mm3 (4.6-6.2); White Blood Count 5.2 K/mm3 (4.4-11.0)
[2022-07-21] MEDS: Lactated Ringers 1,000 ML 15 ML IV ×2 (06:30→10:45)
[2022-07-21 06:36] LABS: International Normalized Ratio 1.1; Prothrombin Time (Protime)PT. 13.4 SECONDS (11.7-14.9)
[2022-07-21 06:59] LABS: Partial Thromboplast Time 55.2 Seconds (24.1-36.2)
[2022-07-21 14:30] LABS: Surgical Specimen Collection SEE PATHOLOGY REPORT
--- NOTE | 2022-07-21 14:47 | CASEMGMT ---
RN CM readmission note: Prior admission: Admitted from home 07/02 w/Iliopsoas muscle hematoma. Pt had recently been diagnosed w/IVC thrombus (06/05) and anticoagulated with Lovenox. (The CT scan had been ordered to investigate lymphadenopathy noted on previous MRI and patient is currently being worked up for malignancy). Pt presented 07/02 w/LLQ abdominal pain [address]-guided biopsy of a retroperitoneal lymph node. Lovenox held d/t the hematoma and consult placed to Dr. Nunes with vascular surgery. Repeat CT done 07/05 and pt discharged home 07/05 w/plan for Lovenox to resume 07/07 and to f/u w/Dr Nunes. Current admission: Admitted 07/20/22 for heparin bridge in preparation for scheduled venogram with thrombectomy on 07/21/2022 to address IVC thrombus. RN CM to room at this time to talk w/pt. Pt currently out of room at this time. Chart review completed. Pt lives @ home w/, is independent, drives, and uses no DME. No discharge planning needs identified at this time. CM to be available should any discharge planning needs arise. Landon BSN RN CM
--- NOTE | 2022-07-21 14:55 | SUR.PHASEI ---
PACU ARRIVAL: NERISSA, ETHNOGRAPHIC MATERIALS CONSERVATOR RN, ACCOMPANIES PATIENT. REVIEWED ALL DRESSINGS & ACCESS SITES. NO S/S HEMATOMA. MILD EDEMA TO RIGHT NECK.
[2022-07-21 15:29] LABS: ACT Activated Clotting Time 143 sec (74-137)
[2022-07-21 15:30] LABS: ACT Activated Clotting Time 281 sec (74-137)
[2022-07-21 15:30] LABS: ACT Activated Clotting Time 257 sec (74-137)
[2022-07-21 15:31] LABS: ACT Activated Clotting Time 191 sec (74-137)
[2022-07-21 15:32] LABS: ACT Activated Clotting Time 215 sec (74-137)
[2022-07-21 15:33] LABS: ACT Activated Clotting Time 239 sec (74-137)
--- NOTE | 2022-07-21 16:19 | PCM.OPRPT ---
Report of Operation Date of Procedure: 07/21/22 Pre-Operative Diagnosis: IVC occlusion Post-Operative Diagnosis: Same Surgery/Procedure Performed:: Venogram of the inferior vena cava and bilateral lower extremities Intravascular sound of the inferior vena cava, left common iliac vein, left external iliac vein, left common femoral vein Percutaneous mechanical thrombectomy of the inferior vena cava and left common iliac vein Angioplasty inferior vena cava and left common iliac vein Ultrasound-guided access of the right IJ Surgeon: Karsten Nunes Type of Anesthesia: General Estimated Blood Loss (mL): 200 Description of Procedure: HPI: Patient is a 61-year-old male was found rather incidentally to have an inferior vena cava occlusion up to the confluence with the renal veins with some extension of thrombus into the ostia of the renal veins. He also is in the process of being evaluated for an a as of yet undefined malignancy with diffuse adenopathy. He has been on anticoagulation during efforts to get a proper tissue diagnosis of his suspected malignancy with no significant decrease in IVC thrombus extension. He is taken now for attempted mechanical thrombectomy with possible stenting of any remnant thrombus or compression. Description of procedure: Upon obtaining form consent and verification correct patient procedure site patient was taken to the Warehouse Associate Driver he was placed in general anesthesia. He was then positioned prepped and draped in usual sterile fashion a time was performed. Vertical incision was made in the right proximal thigh and Bovie left cautery used dissect down through subcutaneous tissue. Self-retaining tractor then put in position dissection carried down to the fascia which was then incised. Self-retaining tractors and moved deeper into the wound tract and the sartorius muscle medially and dissection carried down to the neurovascular bundle. Sharp dissection used to dissect down to the femoral vein with care taken to identify and protect the adjacent nerve and artery. The femoral vein was then dissected free proximal distal and a right angle used to place a vessel loop. Vertical incision was made in the left proximal thigh and Bovie left cautery used dissect down through subcutaneous tissue. Self-retaining tractor then put in position dissection carried down to the fascia which was then incised. Self-retaining tractors and moved deeper into the wound tract and the sartorius muscle medially and dissection carried down to the neurovascular bundle. Sharp dissection used to dissect down to the femoral vein with care taken to identify and protect the adjacent nerve and artery. The femoral vein was then dissected free proximal distal and a right angle used to place a vessel loop. Next under ultrasound guidance the right IJ was accessed in retrograde fashion micropuncture needle and wire. This was then exchanged out for micropuncture sheath through which a Bentson wire was advanced traversing the right atrium and into the inferior vena cava. Micropuncture sheath exchanged out for 6 Somali sheath and the patient was heparinized. Next the right femoral vein was accessed in retrograde fashion micropuncture needle and wire was then exchanged over my puncture sheath. Through this Bentson wire was advanced and the micropuncture sheath exchanged out for an 8 Somali sheath. Finally the left femoral vein was accessed in retrograde fashion with micropuncture needle and wire, exchanged for micropuncture sheath and Bentson, and ultimately for an 8 Somali sheath. Hand-injection bilateral lower extremity venogram and inferior vena cava gram were then performed which revealed abrupt occlusion of the mid common iliac veins bilaterally, with significant collaterals throughout the pelvis. Via the right IJ sheath a KMP catheter was advanced and venacavogram from the IJ access performed which confirmed thrombus encroaching on the ostia of the bilateral renal veins. Using multiple shaped catheters and stiff Glidewire we attempted to navigate across the right iliac occlusion with no success due to multiple large collaterals at the terminus of the occlusion. Despite multiple efforts were unable to fully engage the occlusion from the leg access. Next we exchanged out the IJ 6 Somali sheath for a long 6 Somali sheath and utilizing a KMP catheter and a straight Glidewire we engaged the superior aspect of the occlusion and were able to cross the occluded vena cava and ultimately advance into the left iliac system. We then used a trilobed snare from the left femoral access to snare the Glidewire and exteriorize the wire through the left lower extremity sheath. A quick cross catheter then advanced over the Glidewire and the Glidewire exchanged for a short tipped Amplatz wire. Next the intravascular sound probe was advanced via the left femoral access sheath over the Amplatz wire and positioned in the inferior vena cava above the renal veins. A digital recorded pullback of the IVC left common and external iliac veins and left common femoral vein was performed which revealed chronic appearing thrombus throughout the IVC, compression of the proximal common iliac vein, otherwise patent distal common iliac and external iliac vein. [place] that a thrombus had potential to be extracted with the Inari SiteMinder Trevier device to the patient was heparinized and serial ACT's performed with heparin reducing as needed. Next the right IJ 6 Somali sheath was exchanged out for 20 and then 22 Somali dilators followed by the Inari IJ distal protection system. There is advanced in the position into the inferior vena cava superior to the renal vein confluence and the funnel deployed. Next the Inari Clotriever mechanical thrombectomy device was brought in the field and prep for cath lab instructions. The left femoral 8 Somali sheath was exchanged out for the Inari sheath, and the thrombectomy device advanced and withdrawn for multiple passes through the entirety of the IVC and the left iliac system. Significant amounts of very chronic appearing thrombus was obtained with very minimal if any acute or subacute thrombus. After multiple passes with diminishing returns we then readvanced the intravascular ultrasound probe which revealed continued significant thrombus presence though now nonocclusive. We then balloon angioplasty of the entirety of the length of the inferior vena cava and the left common iliac vein in effort to hopefully promote thrombus extraction. The thrombectomy device and then readvanced for multiple passes again with extirpated matter most consistent with chronic thrombus. Given the patient's possible oncologic diagnosis the tissue was going to be sent for pathology to confirm whether thrombus or a source for his adenopathy. Again after some further chronic thrombus extraction the intravascular ultrasound was readvanced on again revealing continued adherent chronic thrombus that was nonocclusive. Given the no further thrombus was extracted for the last several passes felt that no further thrombectomy efforts would be expected to improve the thrombus burden. Though there was compression it was felt that stent placement would be at high risk for stent failure given the impeded outflow of the inferior vena cava, and we did not want to stent the entirety of the vena cava up to the renal veins and risk jailing and occluding the renal vein ostia. We did not make further efforts to cross the right common iliac vein occlusion both from the neck and from the right lower extremity again with no success. Repeat IVC and iliac venogram did reveal flow channel with contrast transit preferentially into the vena cava rather than the collaterals that had previously been visualized. The hope was that with debulking of the clot that anticoagulation would hopefully give him some symptom relief and give some potential patency of the IVC and iliac veins. The right IJ sheath was then withdrawn and a silk suture placed in the skin followed by 10 minutes of manual pressure. The right femoral sheath and wire were withdrawn and a 6-0 Prolene U stitch placed with satisfactory stasis. Next the left femoral vein was occluded proximal distal Vesseloops and the sheath removed. The venotomy was then repaired transversely with 6-0 Prolene. After vessels were released satisfactory stasis was noted. The incision was then closed with 2-0 Vicryl 3-0 Vicryl for Monocryl and Dermabond for the skin. The inclusion the case patient was taken to the recovery room with dissipated return to the PCU. Upon leaving the Warehouse Associate Driver heparin was resumed at his prior rate.
[2022-07-21] MEDS: Vancomycin IV 1,000 MG/200 ML BAG 200 MG IV (17:03)
[2022-07-21] MEDS: HEPARIN/D5w 25,000 UNITS 25,000 UNITS/250 ML IV.SOLN. 13 UNITS CONT INF (17:43)
[2022-07-21] MEDS: oxyCODONE 5 MG Tablet PO ×2 (18:14→23:23)
[2022-07-21 18:51] LABS: Partial Thromboplast Time 111.6 Seconds (24.1-36.2)
[2022-07-21] MEDS: Acetaminophen 500 MG Tablet 1000 MG PO (21:05)
[2022-07-21] MEDS: 0.9% Saline Lock 10 ML Syringe IV (21:07)
[2022-07-22 04:09] LABS: Partial Thromboplast Time 42.2 Seconds (24.1-36.2)
[2022-07-22] MEDS: Heparin Injection (Vial) 5,000 UNIT/ML VIAL IV ×2 (04:34→11:04)
[2022-07-22] MEDS: Acetaminophen 500 MG Tablet 1000 MG PO ×2 (04:35→13:29)
[2022-07-22 04:40] VITALS: BP 123/83; PULSE 92; RESP 16; TEMP 36.7; O2SAT 95
[2022-07-22 07:48] LABS: Absolute Lymphocyte Count 0.82 X10^3/uL (0.83-4.51); Absolute Neutrophil Count 4.9 X10^3/uL (2.0-7.7); Basophil# 0.02 X10^3/uL; Basophil% 0.3 % (0-1); Eosinophil# 0.04 X10^3/uL; Eosinophils% 0.6 % (0-5); Hematocrit 39.3 % (40-54); Hemoglobin 12.5 g/dL (13.0-16.5); Lymphocyte # 0.82 X10^3/ul (0.83-4.51); Lymphocyte % 12.3 % (19-41); Mean Corp Hgb Conc 31.8 g/dL (32-36); Mean Corpuscular Hgb 29.2 pg (27.0-32.0); Mean Corpuscular Volume 91.8 fL (80-94); Mean Platelet Vol. 10.1 fl (6.2-12.0); Monocyte# 0.81 X10^3/uL; Monocyte% 12.2 % (0-10); NRBC Flagged by Analyzer 0 % (0-5); Neutrophil # 4.94 X10^3/uL (2.7-7.7); Neutrophil % 74.4 % (47-70); Platelet Count 169 K/mm3 (150-450); RBC Distribution Width CV 14.8 % (11.6-14.6); RBC Distribution Width SD 49.8 fl (35.1-43.9); Red Blood Count 4.28 M/mm3 (4.6-6.2); White Blood Count 6.6 K/mm3 (4.4-11.0)
[2022-07-22 08:00] VITALS: BP 116/90; PULSE 92; RESP 16; TEMP 36.6; O2SAT 98
[2022-07-22 10:40] LABS: Partial Thromboplast Time 43.8 Seconds (24.1-36.2)
[2022-07-22] MEDS: Senna/Docusate Sodium 1 Tablet 2 TABLET PO (11:04)
[2022-07-22] MEDS: 0.9% Saline Lock 10 ML Syringe IV (11:15)
[2022-07-22 14:30] VITALS: BP 115/78; PULSE 97; RESP 16; TEMP 36.6; O2SAT 96
[2022-07-22] MEDS: Enoxaparin 150 MG/ML Syringe 130 MG SC (15:38)
[2022-07-22] MEDS: oxyCODONE 5 MG Tablet PO (15:40)
--- NOTE | 2022-07-22 16:31 | PCM.DC.SUM ---
Providers Date of Admission: 07/20/22 Date of Discharge: 07/22/22 Primary Care Physician: Dr. Karsten Szymanski MD Reason For Visit: VENOGRAM,THROMBECTOMY,POSS ILLIAC STENT Diagnosis Discharge Diagnosis (1) IVC thrombosis: Status: Chronic Code(s): I82.220 - Acute embolism and thrombosis of inferior vena cava Medications at Discharge Home Medications garlic 300 mg capsule 300 mg PO DAILY supplement 07/10/20 magnesium oxide 500 mg capsule 500 mg PO DAILY supplement 07/10/20 multivitamin with iron (Daily Multiple Vitamins with Iron tablet) 1 tab PO DAILY vitamin 07/10/20 saw palm 160 mg-vit E 100 unit-selen 100 sjn-zcer-ydqxtu-pygeum tablet ([employer]) 1 tab PO DAILY supplement 06/02/22 Juice Plus Gummies 3 tab PO/SL DAILY SUPPLEMENT 07/17/22 enoxaparin 150 mg/mL subcutaneous syringe (Lovenox) 129 mg subcut DAILY BLOOD THINNER 07/17/22 docusate sodium 100 mg capsule (Colace) 100 mg PO DAILY #30 caps 07/22/22 oxycodone 5 mg capsule 5 mg PO Q8H PRN pain 3 days #9 caps 07/22/22 Hospital Course Summary of Care Provided Hospital Course: Patient was admitted on 07/20/22 for heparin bridge in preparation for scheduled procedure with Dr. Nunes on 07/21. Patient underwent Venogram of the inferior vena cava and bilateral lower extremities with percutaenous mechanical thrombectomy and angioplasty of IVC and left common iliac vein. Overall clot burden was reduced with goal of reducing symptoms and improving venous outflow. Venogram revealed abrupt occlusion of the mid common iliac veins bilaterally, with significant collaterals throughout the pelvis and thrombus encroaching on the ostia of the bilateral renal veins. ?A digital recorded pullback of the IVC left common and external iliac veins and left common femoral vein revealed chronic appearing thrombus throughout the IVC, compression of the proximal common iliac vein. Mechanical thrombectomy was performed to reduce clot burden as much as possible. Though there was compression it was felt that stent placement would be at high risk for stent failure given the impeded outflow of the inferior vena cava, and risk of jailing and occluding the renal vein ostia.?Repeat IVC and iliac venogram did reveal flow channel with contrast transit preferentially into the vena cava rather than the collaterals that had previously been visualized.?Bilateral lower extremity incisions were closed with absorbable sutures and skin glue. Right IJ access was closed with non-absorbable suture. Patient tolerated the procedure well, no complications. Following procedure, he was continued on full therapeutic heparin and kept overnight to monitor and for bridging back to lovenox. He remained hemodynamically stable no signs/symptoms of bleeding. Patient was then transitioned back to his home dose of lovenox without issue. Patient's pain was localized to bilateral LE incision sites and well-controlled on oral medications. Patient was felt to be stable for discharge to home on 07/22/2022. He will follow-up as an outpatient in 1 week to remove right IJ suture. He is scheduled to undergo additional lymph node biopsy on 08/03 with [facility]ology. Our recommendation would be to admit patient for heparin bridge for this procedure as well, will discuss with his oncology team. Physical Exam Const alert, oriented x3, no apparent distress and healthy appearing General Appearance: cooperative and comfortable; Negative for combative or lethargic Orientation / Consciousness: awake Exam Limitations: no limitations HEENT hearing grossly normal bilaterally, external ears normal and external nose normal Head and Scalp: normocephalic and atraumatic Eyes EOMs intact bilaterally General Eye: normal appearance of both eyes Neck full ROM General: normal visual inspection and trachea midline Resp normal respiratory effort, no use of accessory muscles and clear to auscultation bilaterally Effort and Inspection: able to speak in complete sentences and symmetric chest movement; Negative for respiratory distress, labored, stridor, actively coughing or audible wheezes Cardio regular rate and regular rhythm GI normal to inspection, nondistended, normoactive bowel sounds, soft to palpation and non-tender Extremity full ROM Peripheral Pulses: Yes pulses 2+ throughout Skin no rashes or lesions noted and no wounds General Skin Exam: Negative for ecchymosis, erythema, eschar, mottling, petechiae, purpura, pallor or dermatitis Trauma: no lacerations or abrasions Wound Narrative: Bilateral lower extremity incision and right IJ sites C/D/I without erythema, swelling, drainage, foul odor, hematoma, bleeding. Neuro oriented x3, CN's II-XII intact bilaterally, moves all extremities, no focal motor deficits, no sensory deficits noted and gait normal Speech: speech normal Psych mental status grossly normal, thought process normal, cooperative, affect normal, speech normal and activity/motor behavior normal Weight / BMI Weight Weight: 186 lb 15.232 oz Body Mass Index (BMI) 28.4 ABG / Lab / Microbiology Data Result Diagrams: 07/22/22 03:23 07/20/22 16:26 Laboratory: Laboratory Results - last 24 hr 07/21/22 18:00: APTT 111.6 H* 07/22/22 03:23: APTT 42.2 H 07/22/22 03:23: WBC 6.6, RBC 4.28 L, Hgb 12.5 L, Hct 39.3 L, MCV 91.8 D, MCH 29.2, MCHC 31.8 L, RDW Std Deviation 49.8 H, RDW Coeff of Lili 14.8 H, Plt Count 169, MPV 10.1, Immature Gran % (Auto) 0.200, Neut % (Auto) 74.4 H, Lymph % (Auto) 12.3 L, Gonzales % (Auto) 12.2 H, Eos % (Auto) 0.6, Baso % (Auto) 0.3, Absolute Neuts (auto) 4.9, Absolute Lymphs (auto) 0.82 L, Nucleated RBC % 0 07/22/22 10:17: APTT 43.8 H D/C Instructions Discharge Diet: No restrictions May shower in (days): 1 Weight Bearing Status: Weight bearing as tolerated Lifting Restricted to (Lbs): 20 Lifting Restrictions: Do not lift greater than 20 pounds for 3 weeks Call your doctor if your incision/area has: Continuous Slow Oozing, Sudden Increased Bleeding, Increased Pain/ Swelling, Increased Redness, Foul Smelling Discharge and Swelling at the incision site Call your doctor if you observe: Fever of 101 or Higher and Uncontrolled pain Remove Dressing in: 1 day Additional Dressing/Incision Instructions: May remove dressings in 1 day. May gently wash with soap and water, pat dry, may keep uncovered. May shower, but do not submerge incision sites in water for 3-4 weeks. Additional Instructions: Do not lift greater than 20 pounds for 3 weeks. Encourage ambulation as tolerated. Do not submerge incisions in water for 3 weeks. May shower in 1 day. May remove dressings in 1 day. Continue with lovenox daily at home. Wear your measured compression stockings daily. Return to office in 1 week for suture removal. Our office will call you to schedule. Please Follow Up With: Cindy Burgos PA When: 1 week Meaningful Use Info Meaningful Use Diagnoses (Choose all that apply): None applicable Discharge Plan Admission Admit Date/Time: 07/20/22 15:29 Primary Reason for Your Visit: Heparin bridge, venogram with mechanical thrombectomy Attending Provider: Karsten Nunes Primary Care Provider: Karsten Szymanski Discharge Orders/Prescriptions Prescriptions: New oxycodone 5 mg capsule 5 mg PO Q8H PRN (Reason: pain) 3 Days Qty: 9 0RF docusate sodium [Colace] 100 mg capsule 100 mg PO DAILY Qty: 30 0RF Continued multivitamin with iron [Daily Multiple Vitamins/Iron] Tablet 1 tab PO DAILY garlic 300 mg capsule 300 mg capsule 300 mg PO DAILY magnesium oxide 500 mg capsule 500 mg PO DAILY Prostate Health 160-100-100 mg-unit-mcg tablet 1 tab PO DAILY Juice Plus Gummies 3 tab PO/SL DAILY enoxaparin [Lovenox] 150 mg/mL syringe 129 mg subcut DAILY Rx Instructions: Start Lovenox on 07/07/2022 Referrals / Follow Up: Karsten Szymanski MD [Primary Care Provider] - Cindy Burgos PA [Med Staff - [facility]] - Disposition Disposition (needs filled in before D/C Order can be placed): Home, Self Care Charges/Coding Visit Charges Inpatient E&M: 50235 Disch Hosp
[2022-07-22 17:55] LABS: Partial Thromboplast Time 70.7 Seconds (24.1-36.2)
== END 2022-07-22 19:14 | disposition home or self-care (01) | DRG 271 ==
PROVIDERS: Physician Assistant; Admitting Provider Surgery Trauma Surgery; PCP Family Medicine; Visit Provider Surgery Trauma Surgery
PROC: 06CG3ZZ Extirpation of Matter from Left External Iliac Vein, Percutaneous Approach (ICD-10-PCS; principal; 2022-07-21 07:10)
DX: I82.220 Acute embolism and thrombosis of inferior vena cava (principal); I82.3 Embolism and thrombosis of renal vein; I82.422 Acute embolism and thrombosis of left iliac vein; I82.522 Chronic embolism and thrombosis of left iliac vein; I82.221 Chronic embolism and thrombosis of inferior vena cava
CPT/HCPCS: 36005; 36010; 36415; 37187; 37248; 37249; 37252; 37253; 75822; 75825; 76937; 80048; 85025; 85027; 85347; 85610; 85730; 88304; 88305; 88341; 88342; 93005; C1753; C1757; C1769; C1887; C1894; J7120; Q9967; A4216; C1725; C1773

== ENCOUNTER → 2022-07-28 | Outpatient (CLI) | payer OTHER, SELFPAY ==
[2022-07-28 10:20] LABS: Hemoglobin 13.5 g/dL (13.0-16.5)
[2022-07-28 10:45] LABS: International Normalized Ratio 1.1; Prothrombin Time (Protime)PT. 13.5 SECONDS (11.7-14.9)
[2022-07-28 11:32] LABS: Partial Thromboplast Time 30.2 Seconds (24.1-36.2)
== END | disposition home or self-care (01) ==
LOC: LAB 10:02
PROVIDERS: PCP Family Medicine; Referring Provider Physician Assistant; Visit Provider Physician Assistant
DX: I82.220 Acute embolism and thrombosis of inferior vena cava (principal); Z79.01 Long term (current) use of anticoagulants
CPT/HCPCS: 36415; 85018; 85610; 85730

== ENCOUNTER 2022-09-15 06:58 | Outpatient (RCR) | payer OTHER, SELFPAY ==
[2022-09-07 17:35] LABS: Absolute Lymphocyte Count 0.68 X10^3/uL (0.83-4.51); Absolute Neutrophil Count 1.7 X10^3/uL (2.0-7.7); Basophil# 0.07 X10^3/uL; Basophil% 2.6 % (0-1); Eosinophils% 3.7 % (0-5); Hematocrit 45.1 % (40-54); Hemoglobin 14.9 g/dL (13.0-16.5); Lymphocyte # 0.68 X10^3/ul (0.83-4.51); Lymphocyte % 25.3 % (19-41); Mean Corpuscular Volume 90.9 fL (80-94); Mean Platelet Vol. 9.9 fl (6.2-12.0); Monocyte# 0.17 X10^3/uL; Monocyte% 6.3 % (0-10); NRBC Flagged by Analyzer 0.7 % (0-5); Neutrophil # 1.65 X10^3/uL (2.7-7.7); Neutrophil % 61.4 % (47-70); Platelet Count 200 K/mm3 (150-450); RBC Distribution Width CV 12.7 % (11.6-14.6); RBC Distribution Width SD 42.5 fl (35.1-43.9); Red Blood Count 4.96 M/mm3 (4.6-6.2); White Blood Count 2.7 K/mm3 (4.4-11.0)
[2022-09-07 17:49] LABS: ALB/GLOB Ratio 1.3 RATIO (0.9-2.4); AST(SGOT) 11 U/L (15-37); Alanine Aminotransfer ALT/SGPT 26 U/L (16-61); Albumin, Serum 3.9 g/dL (3.2-5.0); Alkaline Phosphatase 77 U/L (45-117); Anion Gap 5 (5-15); BUN 16 mg/dL (7-18); BUN/Creat Ratio 16.7 RATIO (10-20); Calcium,Total 9.3 mg/dL (8.5-10.1); Chloride 105 mmol/L (98-107); Creatinine, Serum 0.96 mg/dL (0.70-1.30); EST Glomerular Filtration Rate 85 mL/min (>60); Est Glom Filt Rate - Afr Amer 103 mL/min (>60); Globulin 3.1 g/dL (2.2-4.2); Glucose 119 mg/dL (74-106); Sodium Level 138 mmol/L (136-145)
[2022-09-15 09:53] LABS: Absolute Lymphocyte Count 0.77 X10^3/uL (0.83-4.51); Absolute Neutrophil Count 0.9 X10^3/uL (2.0-7.7); Basophil# 0.04 X10^3/uL; Basophil% 1.8 % (0-1); Eosinophil# 0.08 X10^3/uL; Eosinophils% 3.6 % (0-5); Hematocrit 45.4 % (40-54); Lymphocyte # 0.77 X10^3/ul (0.83-4.51); Lymphocyte % 34.2 % (19-41); Mean Corpuscular Volume 90.8 fL (80-94); Mean Platelet Vol. 9.4 fl (6.2-12.0); Monocyte# 0.45 X10^3/uL; NRBC Flagged by Analyzer 0 % (0-5); Neutrophil # 0.87 X10^3/uL (2.7-7.7); Neutrophil % 38.6 % (47-70); POSITIVE DIFFERENTIAL YES; Platelet Count 290 K/mm3 (150-450); RBC Distribution Width CV 13.6 % (11.6-14.6); RBC Distribution Width SD 43.9 fl (35.1-43.9); White Blood Count 2.3 K/mm3 (4.4-11.0)
[2022-09-15 09:55] LABS: Differential Indicated SCAN CRITERIA MET
[2022-09-15 10:33] LABS: Differential Comment SCANNED
[2022-09-15 10:34] LABS: Albumin, Serum 3.8 g/dL (3.2-5.0); BUN 17 mg/dL (7-18); BUN/Creat Ratio 15.3 RATIO (10-20); Creatinine, Serum 1.11 mg/dL (0.70-1.30); EST Glomerular Filtration Rate 71 mL/min (>60); Est Glom Filt Rate - Afr Amer 86 mL/min (>60); Glucose 119 mg/dL (74-106); Protein, Total 7.5 g/dL (6.4-8.2)
[2022-09-15 10:35] LABS: AST(SGOT) 16 U/L (15-37); Alanine Aminotransfer ALT/SGPT 32 U/L (16-61); Alkaline Phosphatase 85 U/L (45-117); Anion Gap 7 (5-15); Calcium,Total 9.7 mg/dL (8.5-10.1); Chloride 105 mmol/L (98-107); Globulin 3.7 g/dL (2.2-4.2); Potassium 3.5 mmol/L (3.5-5.1); Sodium Level 138 mmol/L (136-145)
== END 2022-09-18 21:08 | disposition home or self-care (01) ==
LOC: MTLAB 06:58
PROVIDERS: PCP Family Medicine
DX: C83.30 Diffuse large B-cell lymphoma, unspecified site (principal)
CPT/HCPCS: 36415; 80053; 85025

== ENCOUNTER → 2022-09-15 | Outpatient (CLI) | payer OTHER, SELFPAY ==
--- NOTE | 2022-09-15 07:25 | MRI_ITS ---
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 IV Contrast Dosage and Agent: None. COMPARISON: None. FINDINGS: BRAIN PARENCHYMA: No MRI evidence of hemorrhage. No evidence of acute infarct. No intracranial mass or mass effect. There is preservation of the ricardo/white matter interface. Normal sella turcica, pituitary gland, infundibular stalk, optic chiasm and hypothalamus. Posterior fossa structures are unremarkable. INTERNAL AUDITORY CANALS: The internal auditory canals are well visualized and patent. No mass identified. CSF SPACES: Appropriate for age. No hydrocephalus. Basal cisterns are patent. VASCULAR SYSTEM: Normal flow voids in the major intracranial circulation. CALVARIUM, SKULL BASE, PARANASAL SINUSES AND MASTOID AIR CELLS: Clear. No expansile changes. ORBITS: Both globes, extraocular muscles, optic nerves and retrobulbar fat appear unremarkable. MRI/Brain W/WO Contrast IMPRESSION: Negative MRI Brain . Electronically Signed: Valencia Cid MD at 1:57 EDT ,
== END | disposition home or self-care (01) ==
PROVIDERS: PCP Family Medicine
DX: C83.38 Diffuse large B-cell lymphoma, lymph nodes of multiple sites (principal)
CPT/HCPCS: 70553; A9575

== ENCOUNTER 2022-10-05 11:36 | Outpatient (RCR) | payer OTHER, SELFPAY ==
[2022-09-22 10:01] LABS: Hematocrit 42.9 % (40-54); Hemoglobin 14.2 g/dL (13.0-16.5); Mean Corp Hgb Conc 33.1 g/dL (32-36); Mean Corpuscular Hgb 30.3 pg (27.0-32.0); Mean Corpuscular Volume 91.5 fL (80-94); Mean Platelet Vol. 10.3 fl (6.2-12.0); POSITIVE COUNT YES; POSITIVE MORPHOLOGY YES; Platelet Count 214 K/mm3 (150-450); RBC Distribution Width CV 14.4 % (11.6-14.6); RBC Distribution Width SD 47.2 fl (35.1-43.9); Red Blood Count 4.69 M/mm3 (4.6-6.2)
[2022-09-22 10:02] LABS: Differential Indicated MANUAL DIFF
[2022-09-22 10:19] LABS: ALB/GLOB Ratio 1.2 RATIO (0.9-2.4); AST(SGOT) 12 U/L (15-37); Alanine Aminotransfer ALT/SGPT 28 U/L (16-61); Albumin, Serum 3.9 g/dL (3.2-5.0); Alkaline Phosphatase 161 U/L (45-117); Anion Gap 4 (5-15); BUN 23 mg/dL (7-18); BUN/Creat Ratio 24.5 RATIO (10-20); Calcium,Total 9.1 mg/dL (8.5-10.1); Chloride 104 mmol/L (98-107); Creatinine, Serum 0.94 mg/dL (0.70-1.30); EST Glomerular Filtration Rate 87 mL/min (>60); Est Glom Filt Rate - Afr Amer 105 mL/min (>60); Globulin 3.3 g/dL (2.2-4.2); Glucose 96 mg/dL (74-106); Potassium 3.2 mmol/L (3.5-5.1); Protein, Total 7.2 g/dL (6.4-8.2); Sodium Level 138 mmol/L (136-145)
[2022-09-22 10:55] LABS: Eosinophil 1 % (0-5); Lymphocyte 3 % (19-41); Monocyte 3 % (0-10); Neutrophil-Band 4 % (0-5); Neutrophil-Segmented 89 % (47-70); Platelet Estimate ADEQUATE (ADEQ); Red Cell Morphology NORM C+C NORMAL (NORM C&C); Total Cells Counted 100 (MANUAL DIFF)
[2022-09-22 10:56] LABS: Absolute Lymphocyte Count 0.81 X10^3/uL (0.83-4.51); Absolute Neutrophil Count 25.1 X10^3/uL (2.0-7.7)
[2022-09-24 08:46] LABS: Pathologist Review Reviewed
[2022-09-29 12:42] LABS: Hematocrit 42.8 % (40-54); Hemoglobin 14.3 g/dL (13.0-16.5); Mean Corp Hgb Conc 33.4 g/dL (32-36); Mean Corpuscular Hgb 30.2 pg (27.0-32.0); Mean Corpuscular Volume 90.5 fL (80-94); Mean Platelet Vol. 10.6 fl (6.2-12.0); POSITIVE COUNT YES; POSITIVE MORPHOLOGY YES; Platelet Count 149 K/mm3 (150-450); RBC Distribution Width CV 13.7 % (11.6-14.6); RBC Distribution Width SD 44.5 fl (35.1-43.9); Red Blood Count 4.73 M/mm3 (4.6-6.2); White Blood Count 9.3 K/mm3 (4.4-11.0)
[2022-09-29 12:47] LABS: Differential Indicated MANUAL DIFF
[2022-09-29 13:15] LABS: Blast 1 % (0-0); Eosinophil 1 % (0-5); Lymphocyte 5 % (19-41); Metamyelocyte 2 % (0-1); Monocyte 11 % (0-10); Myelocyte 2 % (0-0); Neutrophil-Band 1 % (0-5); Neutrophil-Segmented 73 % (47-70); Platelet Estimate SLT DEC (ADEQ); Promyelocyte 4 % (0-0); Red Cell Morphology NORM C+C NORMAL (NORM C&C); Total Cells Counted 100 (MANUAL DIFF)
[2022-09-29 13:16] LABS: Absolute Neutrophil Count 6.9 X10^3/uL (2.0-7.7)
[2022-09-29 13:25] LABS: ALB/GLOB Ratio 1.2 RATIO (0.9-2.4); AST(SGOT) 12 U/L (15-37); Alanine Aminotransfer ALT/SGPT 28 U/L (16-61); Alkaline Phosphatase 111 U/L (45-117); Anion Gap 6 (5-15); BUN 16 mg/dL (7-18); BUN/Creat Ratio 14.3 RATIO (10-20); Calcium,Total 9.2 mg/dL (8.5-10.1); Chloride 101 mmol/L (98-107); Creatinine, Serum 1.12 mg/dL (0.70-1.30); EST Glomerular Filtration Rate 71 mL/min (>60); Est Glom Filt Rate - Afr Amer 86 mL/min (>60); Globulin 3.4 g/dL (2.2-4.2); Glucose 106 mg/dL (74-106); Potassium 3.7 mmol/L (3.5-5.1); Protein, Total 7.4 g/dL (6.4-8.2); Sodium Level 135 mmol/L (136-145)
[2022-10-01 13:20] LABS: Pathologist Review Reviewed
[2022-10-05 15:40] LABS: Absolute Neutrophil Count 5.8 X10^3/uL (2.0-7.7); Basophil# 0.07 X10^3/uL; Basophil% 0.9 % (0-1); Eosinophils% 1.3 % (0-5); Hematocrit 41.3 % (40-54); Hemoglobin 13.7 g/dL (13.0-16.5); Lymphocyte % 10.8 % (19-41); Mean Corp Hgb Conc 33.2 g/dL (32-36); Mean Corpuscular Hgb 29.7 pg (27.0-32.0); Mean Corpuscular Volume 89.6 fL (80-94); Mean Platelet Vol. 10.4 fl (6.2-12.0); Monocyte# 0.61 X10^3/uL; Monocyte% 8.2 % (0-10); NRBC Flagged by Analyzer 0 % (0-5); Platelet Count 230 K/mm3 (150-450); RBC Distribution Width CV 14.2 % (11.6-14.6); RBC Distribution Width SD 45.1 fl (35.1-43.9); Red Blood Count 4.61 M/mm3 (4.6-6.2); White Blood Count 7.4 K/mm3 (4.4-11.0)
[2022-10-05 17:37] LABS: ALB/GLOB Ratio 1.1 RATIO (0.9-2.4); AST(SGOT) 13 U/L (15-37); Alanine Aminotransfer ALT/SGPT 27 U/L (16-61); Alkaline Phosphatase 90 U/L (45-117); Anion Gap 4 (5-15); BUN 14 mg/dL (7-18); BUN/Creat Ratio 15.5 RATIO (10-20); Calcium,Total 9.2 mg/dL (8.5-10.1); Chloride 105 mmol/L (98-107); EST Glomerular Filtration Rate 91 mL/min (>60); Est Glom Filt Rate - Afr Amer 110 mL/min (>60); Globulin 3.5 g/dL (2.2-4.2); Glucose 98 mg/dL (74-106); Potassium 4.3 mmol/L (3.5-5.1); Protein, Total 7.5 g/dL (6.4-8.2); Sodium Level 136 mmol/L (136-145)
== END 2022-10-18 05:12 | disposition home or self-care (01) ==
LOC: MTLAB 11:36
PROVIDERS: PCP Family Medicine
DX: C83.30 Diffuse large B-cell lymphoma, unspecified site (principal)
CPT/HCPCS: 36415; 80053; 85025

== ENCOUNTER → 2023-01-12 | Outpatient (CLI) | payer OTHER, SELFPAY ==
[2023-01-12 10:08] LABS: Absolute Lymphocyte Count 0.52 X10^3/uL (0.83-4.51); Absolute Neutrophil Count 3.5 X10^3/uL (2.0-7.7); Basophil# 0.07 X10^3/uL; Basophil% 1.5 % (0-1); Eosinophil# 0.19 X10^3/uL; Hematocrit 43.3 % (40-54); Hemoglobin 14.1 g/dL (13.0-16.5); Lymphocyte # 0.52 X10^3/ul (0.83-4.51); Mean Corp Hgb Conc 32.6 g/dL (32-36); Mean Corpuscular Hgb 31.9 pg (27.0-32.0); Mean Platelet Vol. 10.5 fl (6.2-12.0); Monocyte% 10.5 % (0-10); NRBC Flagged by Analyzer 0 % (0-5); Neutrophil # 3.45 X10^3/uL (2.7-7.7); Neutrophil % 72.8 % (47-70); POSITIVE DIFFERENTIAL YES; Platelet Count 247 K/mm3 (150-450); RBC Distribution Width CV 12.5 % (11.6-14.6); Red Blood Count 4.42 M/mm3 (4.6-6.2); White Blood Count 4.7 K/mm3 (4.4-11.0)
[2023-01-12 10:13] LABS: Differential Indicated SCAN CRITERIA MET
[2023-01-12 10:25] LABS: Differential Comment SCANNED
[2023-01-12 10:50] LABS: ALB/GLOB Ratio 1.2 RATIO (0.9-2.4); AST(SGOT) 16 U/L (15-37); Alanine Aminotransfer ALT/SGPT 28 U/L (16-61); Alkaline Phosphatase 81 U/L (45-117); Anion Gap 6 (5-15); BUN 20 mg/dL (7-18); BUN/Creat Ratio 21.1 RATIO (10-20); Calcium,Total 8.9 mg/dL (8.5-10.1); Chloride 107 mmol/L (98-107); Creatinine, Serum 0.95 mg/dL (0.70-1.30); EST Glomerular Filtration Rate 86 mL/min (>60); Est Glom Filt Rate - Afr Amer 104 mL/min (>60); Globulin 3.4 g/dL (2.2-4.2); Glucose 114 mg/dL (74-106); LDH 179 U/L (87-241); Potassium 3.6 mmol/L (3.5-5.1); Protein, Total 7.4 g/dL (6.4-8.2); Sodium Level 139 mmol/L (136-145)
== END | disposition home or self-care (01) ==
LOC: MTLAB 08:42
PROVIDERS: PCP Family Medicine
DX: C83.30 Diffuse large B-cell lymphoma, unspecified site (principal)
CPT/HCPCS: 36415; 80053; 83615; 85025

== ENCOUNTER 2023-09-14 08:00 | Outpatient (RCR) | payer OTHER, SELFPAY ==
--- NOTE | 2023-08-18 09:24 | HP.PTEVAL ---
Patient's Visit Information Visit Information Visit Information: KYLE VAZQUEZ is a 62 year old M referred to Physical Therapy by ABY ANDREW with a diagnosis of R HARRY and R foot neuropathy Early july R lateral HARRY. Date of Evaluation: 08/18/23 Physical Therapist: Karsten Carrillo, DPT, OCS, CSCS Visit Plan Frequency: 2x /Week Duration: 4-6 Weeks Plan: 2x/weekd for 4 weeks for teaching hip and LE and postural strength for [employer] independence adn home hip strength, HS and gastroc stretch and work to I Gait training for steps and weaning cane Subjective Subjective: R HARRY Dr. Rosa 3 weeks ago. Went home afterwards, gave exercises of AP, HS, GS, pillow squeeze, LAQ, windshield wipers. throughout day. using cane to ambulate in R UE today and at home. Pain level 0-5/10 Incision is lateral at L hip. 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 Szymanski wants looked at. uses massager on that leg. 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 Is on blood thinner. Is taking phone calls for work. Basic ADLs are going OK with dressing, bathroom, shower and steps are no problem one at at [facility]. Hobbies include riding motorcycle L leg is healthy Tingling does not keep him from doing anything. Function is normal outside of HARRY. Pain R hip: Pain Intensity (Out of 10): 0 Pain Intensity Range: 0 and 6 Objective Objective: R hip trendelneberg minimally in gait, avoids extension at end stance, using cane adn without cane I and safe. Trasnfeers bed and chair I. Steps using L with rail and cane easily, can use R wihtout much pain with VC. R hip ROM: flexion 90, extension 2, abduction 14, L hip is 110 flexion, 10 ext, 22 abduction reflexes 1/3 patella and achilles B sensation LE WNL to gross light touch but tingling under R lateral foot constantly. strength in R hip flexion 3 and 8 #, extension 3 and 12 #, abduction 3+, L hip is 4- knee flexion and extension 4-/5, missing about 3 degrees R knee extension. Flexion is funcitonal B. ankle AROM WFL, tightness in B HS and gastroc obvious at 0 DF AROM B. SLS is hard on R due to hip pain, not balance Balance/Special Test Scores Functional Gait Assessment Score: 27 % Disability: 10.0000 WOMAC Total Score: 14 WOMAC Percentatge: 85.4200 Goals Goal 1:: Walk and steps reciprocally without antalgia. or pain Goal Time Frame: 4-6 Weeks Goal 2:: I appropriate HEP for strength LE([employer]) Goal Time Frame: 4-6 Weeks Goal 3:: womac 5 or less Goal Time Frame: 4-6 Weeks Goal 4:: return to work without a problem Goal Time Frame: 4-6 Weeks Rehabilitation Potential Physical Therapy Diagnosis: limited strength and ROM limiting funciton Rehabilitation Potential: Fair Anticipated Interventions Patient/Client Instruction: Educate patient on: Condition and Plan of Care For the Purpose of:: To decrease pain, To increase ROM, To improve nutrient delivery to tissue, To improve muscle performance and motor function, To increase tolerance to activity/condition/position and To improve ability of physical actions for home/community/work/leisure Therapeutic Exercise to Include: Strength training, Gait and locomotor training, Passive ROM and Active ROM For the Purpose of:: To decrease pain, To increase ROM, To improve nutrient delivery to tissue, To improve muscle performance and motor function, To improve ability of physical actions for home/community/work/leisure and To improve gait and locomotor functions Manual Therapy Techniques to Include: Scar massage and Soft tissue mobilization For the Purpose of:: To decrease pain, To increase ROM and To improve nutrient delivery to tissue Cryotherapy (ice pack, ice massage): Yes For the Purpose of:: To decrease pain and To decrease swelling/inflammation Text: Thank you for the opportunity to evaluate your patient. For Medicare and Medicare HMO plans, please review the plan of care and approve it. It will need to be FAXED BACK to us at [phone] for Medicare purposes. For Medicare only, by signing this I certify the plan of care. Please let me know if there are questions or concerns regarding this plan of care. Physician Signature: Date:
--- NOTE | 2023-09-15 09:18 | HP.PTDCSUM ---
Discharge Summary D/C summary: It has been my pleasure to treat KYLE VAZQUEZ referred by ABY ANDREW, with the diagnosis of R HARRY and R foot neuropathy Early july R lateral HARRY for a total of 9 visit(s). Discharge Date: 09/15/23 Please see the following information for a summary of their discharge status. Subjective Subjective: Doing well, stiff up on getting out of chair but good when walking. To Doc October 19. Sleep is restless and bounces around, is typically restless. Activities at home are normal and feels like he can mow lawn. Driving and pinching not present anymore. 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 Does not need to get on the roof but needs to climb ladders at some point. Has been back for a while. Remaining 15% is strength. Will continuing strength exercises at home. Pain R hip: Pain Intensity (Out of 10): 0 Overall Improvement % Improvement: 85 Objective Objective/Function: Trasnfers I chair, Walks with very slight R trendelenberg but no AD and funcitonal. Steps reciprocal without a rail. PROM hip R 100 flexion 24 abduction, 45 er, 10 IR on R. Funcitonal strength outside of trendelenberg gait. Goals Goal 1:: Walk and steps reciprocally without antalgia. or pain Goal Progress: Goal Met Goal 2:: I appropriate HEP for strength LE([employer]) Goal Progress: Goal Met Goal 3:: womac 5 or less Goal Progress: Progressing Goal 4:: return to work without a problem Goal Progress: Goal Met Plan Plan: d/c to hep D/C Information d/c sentence: If there are questions or concerns regarding this patient's physical therapy, please feel free to call me at [phone]. Thank you for the referral of this patient. Sincerely, Karsten Carrillo, DPT, OCS, CSCS Balance/Gait/Functional tests Balance/Special Test Scores Functional Gait Assessment Score: 27 % Disability: 10.0000 WOMAC Total Score: 14 WOMAC Percentage: 85.4200 Improvement % Improvement: 85
== END 2023-09-14 19:00 | disposition home or self-care (01) ==
LOC: PT 08:00
PROVIDERS: PCP Family Medicine
DX: M16.11 Unilateral primary osteoarthritis, right hip (principal); Z96.641 Presence of right artificial hip joint; M79.671 Pain in right foot
CPT/HCPCS: 97110; 97161

== ENCOUNTER → 2024-02-14 | Outpatient (CLI) | payer OTHER, SELFPAY ==
--- NOTE | 2024-02-14 09:57 | RAD_ITS ---
STUDY: X-RAY - LEFT SHOULDER REASON FOR EXAM: Male, 63 years old. Pain. TECHNIQUE: 4 view(s) of the shoulder. COMPARISON: None. FINDINGS: There is severe degenerative arthrosis of the glenohumeral articulation. Normal acromioclavicular joint. Normal acromion. There is spurring of the humeral head. The soft tissue structures are unremarkable. There is no demonstrated fracture. Normal visualized pulmonary apex. RAD/Shoulder min 2 Views IMPRESSION: Degenerative change. Electronically Signed: Gideon David MD at 23:46 EDT ,
== END | disposition home or self-care (01) ==
LOC: MTRAD 09:57
PROVIDERS: PCP Family Medicine; Referring Provider Family Medicine; Visit Provider Family Medicine
DX: M25.512 Pain in left shoulder (principal)
CPT/HCPCS: 73030

== ENCOUNTER 2024-06-16 11:29 | Day surgery (SDC) | payer OTHER, SELFPAY ==
[2024-06-16] VITALS (8 sets, daily range): BP systolic 124–134; BP diastolic 89–95; PULSE 70–90; RESP 16; TEMP 36.2–36.6; O2SAT 96–98; BMI 29.0
--- NOTE | 2024-06-16 11:48 | PRE.ANES_ITS ---
ASA Classification* ASA Classification ASA Classification: 2 Assessment & Plan Anesthesia* Anesthesia Assessment Anesthesia Assessment: Discussed sedation and/or anesthesia options, risks, benefits, and alternatives with patient/parents/legal guardian/POA. Questions invited. The patient/parents/legal guardian/POA seems to understand and agrees to proceed with anesthesia plan. Reviewed the physical assessment, medical history, allergy history and patient home medications list prior to surgery/procedure/anesthetic and documented any changes. Performed airway and anesthesia risk assessments. Anesthesia Type Anesthesia Type: MAC Anesthesia Focused Assessment* Airway Assessment Mouth opens: >3 cm Mallampati Score: II Focused Labs Anesthesia Preop lab: CBC WBC 4.7 K/mm3 (4.4-11.0) 01/12/23 08:47 RBC 4.42 M/mm3 (4.6-6.2) L 01/12/23 08:47 Hgb 14.1 g/dL (13.0-16.5) 01/12/23 08:47 Hct 43.3 % (40-54) 01/12/23 08:47 Plt Count 247 K/mm3 (150-450) 01/12/23 08:47 CHEMISTRY Potassium 3.6 mmol/L (3.5-5.1) 01/12/23 08:47 Sodium 139 mmol/L (136-145) 01/12/23 08:47 BUN 20 mg/dL (7-18) H 01/12/23 08:47 Creatinine 0.95 mg/dL (0.70-1.30) 01/12/23 08:47 Glucose 114 mg/dL (74-106) H 01/12/23 08:47 COAG PT 13.5 SECONDS (11.7-14.9) 07/28/22 10:06 Pre-Assessment Diagnosis/Proposed Procedure Planned Operative Procedure(s): CSCOPE Anesthesia History Anesthesia History - video software engineer: Anesthesia History - video software engineer Hx Hospitalization Yes: 07/2023 HIP REPLACEMENT 06/09/24 15:28 Any Problems With Anesthesia No 06/09/24 15:28 Cholinesterase deficiency No 06/09/24 15:28 You/Your Family Experience No 06/09/24 15:28 fever (hyperthermia) with Relationship Recent Exposure to Contagious No 11/23/18 08:30 Disease Does patient have nerve No 06/09/24 15:28 stimulator Patient instructed to have device shut off --Does patient have Pacemaker or ICD? When Was Last Pacemaker Check QUESTION #4 FULL TEXT: You/Your Family Experience fever (hyperthermia) with Anesthesia Last Oral Intake Last Oral intake: Last Oral Intake NPO since Meds taken in AM with sips of water? Meds patient instructed to take am of surgery PONV PONV - video software engineer: PONV - video software engineer Female No 06/09/24 15:28 HX of Motion Sickness No 06/09/24 15:28 HX of N/V After Surgery No 06/09/24 15:28 Non-Smoker Yes 06/09/24 15:28 Duration of Surgery greater No 06/09/24 15:28 than 60 minutes Number of Risk Factors 1 06/09/24 15:28 PONV Score Low Risk 06/09/24 15:28 Height & Weight Height & Weight: Anesthesia: Height & Weight Height 5 ft 8 in 04/26/24 09:07 Respiratory Assessment Respiratory Assessment - video software engineer: Respiratory Tract Infection Hx - video software engineer Hx Respiratory Tract Infection No 06/09/24 15:28 STOP Sleep Apnea STOP Sleep Apnea - video software engineer: STOP Sleep Apnea - video software engineer Hx Hypertension No 06/09/24 15:28 Hx Sleep Apnea No 06/09/24 15:28 CPAP BIPAP Do you snore loudly (louder No 06/09/24 15:28 than talking or can be heard Do you often feel tired/ No 06/09/24 15:28 fatigued/ sleepy during daytime? Has anyone observed you stop No 06/09/24 15:28 breathing during sleep? STOP Results Negative 06/09/24 15:28 QUESTION #5 FULL TEXT : Do you snore loudly (louder than talking or can be heard through closed doors)? Tobacco Use History Tobacco Use History - video software engineer: Tobacco Use History - video software engineer Tobacco Use Smoking Status Never smoker 06/09/24 15:28 Hx Tobacco Use No 06/09/24 15:28 Years Smoking Packs Smoked per Day Smoking Cessation Date was within the last 15 years Hx Smoking Cessation Date Hx Smoking Cessation Counseling Hematologic Medial History Hematologic Hx - video software engineer: Hematologic Medical Hx - greenhouse grower Hx of Blood Transfusion No 06/09/24 15:28 Hx of Transfusion in last 3 No 06/09/24 15:28 Months Date of Last Transfusion (if within last 3 months) Ever experience any problems No 06/09/24 15:28 with transfusion(s)? Specify any problems Hx of Preganancy in last 3 N/A 06/09/24 15:28 Months Nurse Filling Out Transfusion NBUCHER 06/09/24 15:28 & Questions: Date: 06/09/24 06/09/24 15:28 Time: 15:29 06/09/24 15:28 Patient unable to answer at this time (ie. confused, unrespo /Reproduction History /Reproductive History - video software engineer: /Reproductive Hx- video software engineer Hx Now No 06/09/24 15:28 Gestational Age (in weeks): EDC: Hx Hx Para Hx Section SAB No 06/09[facility]24 [facility] Cancer History of chemotherapy Inferior vena cava thromboembolism Lymphoma Personal history of colon polyps, unspecified Arthritis Restless legs Back pain Non-smoker Numbness and tingling of both legs Numbness and tingling of both feet Shortness of breath on exertion Leg cramps History of edema Axillary lymphadenopathy IVC thrombosis Edema Radiculopathy due to disorder of intervertebral disc of lumbar spine Synovial cyst of lumbar spine Home Medications ?Medication ?Instructions ?Recorded ?Last Taken ?Type garlic 300 mg capsule 300 mg PO DAILY supplement 07/10/20 Unknown History magnesium oxide 500 mg capsule 500 mg PO DAILY supplement 07/10/20 Unknown History multivitamin with iron (Daily 1 tab PO DAILY vitamin 07/10/20 Unknown History Multiple Vitamins with Iron tablet) Juice Plus Gummies 3 tab PO/SL DAILY SUPPLEMENT 07/17/22 Unknown History alpha lipoic acid 200 mg capsule 200 mg PO BID 04/26/24 Unknown History arginine (L-arginine) 500 mg 500 mg PO DAILY 04/26/24 Unknown History capsule capsicum (cayenne) 250 mg capsule 250 mg PO QDAY 04/26/24 Unknown History omega-3 fatty acids-fish oil 360 1 cap PO QDAY 04/26/24 Unknown History mg-1,200 mg capsule (Fish Oil) Allergy/AdvReac Type Severity Reaction Status Date / Time amoxicillin Allergy Rash Verified 06/16/24 11:47 tamsulosin AdvReac Headache Verified 06/16/24 11:47 Family History Mother Arthritis Father Heart disease Surgical History History of hip replacement Hx of colonoscopy [place] teeth removed History of tonsillectomy Social History household members: spouse and children housing: house current occupational status: employed current occupation: Self Smoking Status: Never smoker alcohol intake: current alcohol intake frequency: holidays/special occasions only substance use type: does not use what type of physical activity do you participate in: walking frequency: daily do you feel safe at home: Yes Review of Systems (Anesthesia) ROS Narrative System reviewed and no additional complaints, except as documented.
--- NOTE | 2024-06-16 12:42 | PCM.HP.STD ---
[facility] - General General Date of Admission: 06/16/24 Date of Service: 06/16/24 Chief Complaint: Screening colonoscopy HPI Narrative KYLE VAZQUEZ, is a 63 M who presents today for screening colonoscopy. He is not having any abdominal pain, cramping, chest pain or shortness of breath. He does not take any medicines on a daily basis. He had a colonoscopy over 10 years ago. [facility] Medical History Cancer History of chemotherapy Inferior vena cava thromboembolism Lymphoma Personal history of colon polyps, unspecified Arthritis Restless legs Back pain Non-smoker Numbness and tingling of both legs Numbness and tingling of both feet Shortness of breath on exertion Leg cramps History of edema Axillary lymphadenopathy IVC thrombosis Edema Radiculopathy due to disorder of intervertebral disc of lumbar spine Synovial cyst of lumbar spine Home Medications ?Medication ?Instructions ?Recorded ?Last Taken ?Type garlic 300 mg capsule 300 mg PO DAILY supplement 07/10/20 Unknown History magnesium oxide 500 mg capsule 500 mg PO DAILY supplement 07/10/20 Unknown History multivitamin with iron (Daily 1 tab PO DAILY vitamin 07/10/20 Unknown History Multiple Vitamins with Iron tablet) Juice Plus Gummies 3 tab PO/SL DAILY SUPPLEMENT 07/17/22 Unknown History alpha lipoic acid 200 mg capsule 200 mg PO BID 04/26/24 Unknown History arginine (L-arginine) 500 mg 500 mg PO DAILY 04/26/24 Unknown History capsule capsicum (cayenne) 250 mg capsule 250 mg PO QDAY 04/26/24 Unknown History omega-3 fatty acids-fish oil 360 1 cap PO QDAY 04/26/24 Unknown History mg-1,200 mg capsule (Fish Oil) Allergy/AdvReac Type Severity Reaction Status Date / Time amoxicillin Allergy Rash Verified 06/16/24 11:47 tamsulosin AdvReac Headache Verified 06/16/24 11:47 Family History Mother Arthritis Father Heart disease Surgical History History of hip replacement Hx of colonoscopy [place] teeth removed History of tonsillectomy Social History household members: spouse and children housing: house current occupational status: employed current occupation: Self Smoking Status: Never smoker alcohol intake: current alcohol intake frequency: holidays/special occasions only substance use type: does not use what type of physical activity do you participate in: walking frequency: daily do you feel safe at home: Yes ROS Constitutional Constitutional: Denies fatigue, fever(s), poor appetite, weight gain or weight loss Gastrointestinal Gastrointestinal: Denies belching, bloating, change in bowel habits, change in stool character, chewing difficulty, coffee ground emesis, constipation, cramping, diarrhea, dyspepsia, dysphagia, early satiety, excessive flatus, fecal incontinence, heartburn, hematemesis, hematochezia, hemorrhoids, loose stools, melena, nausea, odynophagia, rectal bleeding, tenesmus, vomiting or weight changes Vital Signs Vital Signs Vital Signs: 06/16/24 11:48 Temperature 97.8 F Temperature Source Temporal Pulse Rate 75 Respiratory Rate 16 Blood Pressure 131/90 H Blood Pressure Mean 103 Blood Pressure Source Monitor Blood Pressure Position Semi-Fowlers Blood Pressure Location Right Arm Pulse Ox 98 Oxygen Delivery Method Room Air Weight Weight: 191 lb Body Mass Index (BMI) 29.0 Physical Exam Const alert, oriented x3, no apparent distress and healthy appearing General Appearance: cooperative GI normal to inspection, nondistended, normoactive bowel sounds, soft to palpation, non-tender and non-distended Percussion: normal to percussion Rectal Exam: deferred Assessment & Plan Assessment/Plan (1) Encounter for screening for malignant neoplasm of colon: PLAN: He was explained alternatives, benefits, risk including not withstanding bleeding, infection, sepsis, perforation, need for emergent urgent . He will have a ASA of 3.
--- NOTE | 2024-06-16 13:16 | PCM.POST.ANE ---
Anesthesia: Postop Eval I Current Vital Signs Temperature: 97.8 F Pulse Rate: 81 Blood Pressure: 127/92 Respiratory Rate: 16 Pulse Ox: 97 Oxygen Delivery Method: Room Air Assessment Airway patent: Yes Spontaneous unlabored respirations: Yes Mental status: Asleep nausea: No Vomiting: No Anesthesia Complication: No Fluid Hydration Crystalloid volume administer (ml): 55 Total IV fluid infused: 55 Progress Note Anesthesia document: Postop Eval 1 completed: Yes
--- NOTE | 2024-06-16 13:18 | OP.CCLET_ITS ---
06/16/2024 Karsten Szymanski [address] [place] [address] Re : Colonoscopy procedure for Chad Malik Dear Dr. Szymanski This procedure was performed on Sunday, June 16, 2024. My impressions and recommendations are as follows: Impressions : - Diverticulosis in the recto-sigmoid colon and in the sigmoid colon. - The examination was otherwise normal on direct and retroflexion views. - No specimens collected. Recommendations : - Discharge patient to home. - Resume previous diet. - Continue present medications. - Repeat colonoscopy in 10 years for screening purposes. My findings are described in the full procedure note, which is enclosed. If I can be of further assistance, please feel free to contact me at . Sincerely, Riccardo Root, 06/16/2024 1:17:20 PM This report has been signed electronically.
--- NOTE | 2024-06-16 13:18 | OP.COLON_ITS ---
Patient Name: Chad Gan Procedure Date: 06/16/2024 12:45 PM Date of : 1960 Age: 63 Procedure: Colonoscopy Indications: Screening for colorectal malignant neoplasm Providers: Riccardo Root DO Referring MD: Karsten Szymanski Medicines: Monitored Anesthesia Care Patient Profile: This is a 63 year old male. Refer to note in patient chart for documentation of history and physical. Last Colonoscopy: more than 10 years ago. Complications: No immediate complications. Procedure: Pre-Anesthesia Assessment: - Prior to the procedure, a History and Physical was performed, and patient medications and allergies were reviewed. The patient is competent. The risks and benefits of the procedure and the sedation options and risks were discussed with the patient. All questions were answered and informed consent was obtained. Patient identification and proposed procedure were verified by the physician in the pre-procedure area. Mental Status Examination: alert and oriented. Airway Examination: normal oropharyngeal airway and neck mobility. Respiratory Examination: clear to auscultation. CV Examination: normal. Prophylactic Antibiotics: The patient does not require prophylactic antibiotics. Prior Anticoagulants: The patient has taken no anticoagulant or antiplatelet agents except for NSAID medication. ASA Grade Assessment: II - A patient with mild systemic disease. After reviewing the risks and benefits, the patient was deemed in satisfactory condition to undergo the procedure. The anesthesia plan was to use monitored anesthesia care (MAC). Immediately prior to administration of medications, the patient was re-assessed for adequacy to receive sedatives. The heart rate, respiratory rate, oxygen saturations, blood pressure, adequacy of pulmonary ventilation, and response to care were monitored throughout the procedure. The physical status of the patient was re-assessed after the procedure. After I obtained informed consent, the scope was passed under direct vision. Throughout the procedure, the patient's blood pressure, pulse, and oxygen saturations were monitored continuously. The Colonoscope was introduced through the anus and advanced to the cecum, identified by appendiceal orifice and ileocecal valve. The colonoscopy was performed without difficulty. The patient tolerated the procedure well. The quality of the bowel preparation was adequate. The ileocecal valve, appendiceal orifice, and rectum were photographed. Scope In: 12:54:59 PM Scope Withdrawal Time 0 hours 10 minutes 42 seconds Scope Out: 1:08:39 PM Total Procedure Duration Time 0 hours 13 minutes 40 seconds Findings: The perianal and digital rectal examinations were normal. A few small-mouthed diverticula were found in the recto-sigmoid colon and sigmoid colon. The exam was otherwise without abnormality on direct and retroflexion views. Impression: - Diverticulosis in the recto-sigmoid colon and in the sigmoid colon. - The examination was otherwise normal on direct and retroflexion views. - No specimens collected. Recommendation: - Discharge patient to home. - Resume previous diet. - Continue present medications. - Repeat colonoscopy in 10 years for screening purposes. Procedure Code(s): --- Professional --- G0121, Colorectal cancer screening; colonoscopy on individual not meeting criteria for high risk CPT copyright 2021 [employer]. All rights reserved. The codes documented in this report are preliminary and upon rail grinder review may be revised to meet current compliance requirements. Riccardo oRot DO 06/16/2024 1:17:20 PM This report has been signed electronically. Number of Addenda: 0 Note Initiated On: 06/16/2024 12:45 PM
--- NOTE | 2024-06-16 13:53 | PCM.POSTANE2 ---
Anesthesia Postop Eval I Sum Postop Eval Completion status Anesthesia document: Postop Eval 1 completed: Yes Anesthesia Postop Eval I Summary Anesthesia Postop Eval I Summary: Anesthesia Postop Eval I: Assessment Summary Airway patent Yes 06/16/24 13:17 [email or web address] Spontaneous unlabored Yes 06/16/24 13:17 [email or web address] respirations Mental status Asleep 06/16/24 13:17 [email or web address] nausea No 06/16/24 13:17 [email or web address] Vomiting No 06/16/24 13:17 [email or web address] Anesthesia Postop Eval I: Fluid Summary Crystalloid volume administer 55 06/16/24 13:17 [email or web address] (ml) Colloids volume administered ( ml) Blood Product volume administered (ml) Total IV fluid infused 55 06/16/24 13:17 [email or web address] Anesthesia Postop Eval I: Summary Notes Anesthesia Complication No 06/16/24 13:17 [email or web address] Anesthesia Complication Comment: Post-operative progress note Anesthesia: Postop Eval II Evaluation Mental status: Awake Pain Level: 0 nausea: No Vomiting: No
== END 2024-06-16 13:47 | disposition home or self-care (01) ==
LOC: EN 11:29 → AC 11:30
PROVIDERS: PCP Family Medicine; Referring Provider Family Medicine; Visit Provider Internal Medicine Gastroenterology
PROC: 0DJD8ZZ Inspection of Lower Intestinal Tract, Via Natural or Artificial Opening Endoscopic (ICD-10-PCS; CPT 45378; principal; 2024-06-16 12:25)
DX: Z12.11 Encounter for screening for malignant neoplasm of colon (principal); K57.30 Diverticulosis of large intestine without perforation or abscess without bleeding; Z96.649 Presence of unspecified artificial hip joint
CPT/HCPCS: 45378; A4216; J2405

== ENCOUNTER → 2024-08-16 | Outpatient (CLI) | payer OTHER, SELFPAY ==
[2024-08-22 15:08] LABS: Testosterone, % Free 4.25 % (1.50-4.20); Testosterone, Free 12.45 ng/dL (5.00-21.00); Testosterone, Total 293 ng/dL (264-916)
== END | disposition home or self-care (01) ==
LOC: MTLAB 08:41
PROVIDERS: PCP Family Medicine; Referring Provider Family Medicine; Visit Provider Family Medicine
DX: N52.9 Male erectile dysfunction, unspecified (principal)
CPT/HCPCS: 36415; 84402; 84403

== ENCOUNTER → 2024-09-12 | Outpatient (CLI) | payer OTHER, SELFPAY | END | disposition home or self-care (01) | LOC: MTLAB 11:30 | PROVIDERS: PCP Family Medicine; Referring Provider Family Medicine; Visit Provider Family Medicine | DX: E34.9 Endocrine disorder, unspecified (principal) | CPT/HCPCS: 36415; 84402 ==

== ENCOUNTER 2024-11-15 14:52 | Emergency (ER) | payer OTHER, SELFPAY ==
[2024-11-15 14:52] VITALS: BP 153/90; PULSE 84; RESP 16; TEMP 36.4; O2SAT 98; BMI 29.7
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
[2024-11-15 16:27] VITALS: BP 143/91; PULSE 68; RESP 16; TEMP 36.4; O2SAT 97
== END 2024-11-15 16:27 | disposition home or self-care (01) ==
PROVIDERS: Emergency Provider Emergency Medicine; PCP Family Medicine; Referring Provider Emergency Medicine; Visit Provider Emergency Medicine
DX: S09.90XA Unspecified injury of head, initial encounter (principal); C85.90 Non-Hodgkin lymphoma, unspecified, unspecified site; S39.012A Strain of muscle, fascia and tendon of lower back, initial encounter; S16.1XXA Strain of muscle, fascia and tendon at neck level, initial encounter; Y92.410 Unspecified street and highway as the place of occurrence of the external cause; V47.5XXA Car driver injured in collision with fixed or stationary object in traffic accident, initial encounter; W22.10XA Striking against or struck by unspecified automobile airbag, initial encounter; Z92.21 Personal history of antineoplastic chemotherapy; Z96.649 Presence of unspecified artificial hip joint
CPT/HCPCS: 70450; 99282

== ENCOUNTER → 2025-04-24 | Outpatient (CLI) | payer OTHER, SELFPAY ==
[2025-04-24 13:16] LABS: PSA,Total - Annual Screen 1.56 ng/mL (0.02-4.00)
== END | disposition home or self-care (01) ==
LOC: MTLAB 10:46
PROVIDERS: PCP Family Medicine
DX: Z12.5 Encounter for screening for malignant neoplasm of prostate (principal)
CPT/HCPCS: 36415; 84153; G0103

== ENCOUNTER → 2025-05-25 | Outpatient (CLI) | payer OTHER, SELFPAY ==
[2025-05-25 18:03] LABS: AST(SGOT) 47 U/L (<=37); Alanine Aminotransfer ALT/SGPT 38 U/L (<=46); Albumin, Serum 4.7 g/dL (3.4-4.8); Alkaline Phosphatase 70 U/L (40-129); Anion Gap 13 (5-15); BUN 19 mg/dL (4-19); BUN/Creat Ratio 15.6 RATIO (10-20); Calcium,Total 9.4 mg/dL (7.6-11.0); Carbon Dioxide 25.6 mmol/L (21.0-32.0); Chloride 99 mmol/L (98-108); Globulin 2.9 g/dL (2.2-4.2); Glucose 76 mg/dL (70-99); Potassium 3.8 mmol/L (3.3-5.1)
== END | disposition home or self-care (01) ==
LOC: MTLAB 15:05
PROVIDERS: PCP Family Medicine
DX: R53.83 Other fatigue (principal)
CPT/HCPCS: 36415; 80053; 84439; 84443